=== PATIENT | female | born 1950 | race American Indian/Alaskan Native ===

== ENCOUNTER 2018-02-16 05:36 | Inpatient (IN) | payer MEDICARE ==
--- NOTE | 2018-02-16 05:51 | Cat Scan Report ---
FINAL REPORT EXAM: CT HEAD/BRAIN WO CON HISTORY: neuro deficits < 6hrs or sx present upon awakening TECHNIQUE: CT imaging is acquired through the brain without contrast. Transaxial reformations are provided. PRIORS: None. FINDINGS: Ventricles and CSF spaces are within normal limits. Scattered deep and subcortical white matter hypodense foci are confluent in some areas and are compatible with microvascular angiopathy. No acute intracranial hemorrhage or mass effect. No skull fracture. No significant abnormality within the imaged paranasal sinuses or mastoid air cells. IMPRESSION: No acute intracranial abnormality. Consider follow-up MRI when clinically feasible. There are chronic sequela of microvascular angiopathy. Findings were related to Nurse Willa Amezcua at 0445 central Time on 02/16/2018 by Edilson academic support coordinator immediately following the examination.
[2018-02-16 06:01] LABS: Basophils # (Auto) 0.1 K/mm3 (0.0-0.1); Basophils % (Auto) 1.3 % (0.0-1.8); Eosinophils # (Auto) 0.4 K/mm3 (0.0-0.4); Hematocrit 33.8 % (30.3-42.9); Hemoglobin 11.2 gm/dl (10.1-14.3); Lymphocytes # (Auto) 3.4 K/mm3 (1.2-5.4); Lymphocytes % (Auto) 31.7 % (13.4-35.0); Mean Corpuscular HGB Conc 33 % (30-34); Mean Corpuscular Hemoglobin 32 pg (28-32); Mean Corpuscular Volume 95 fl (79-97); Monocytes # (Auto) 0.6 K/mm3 (0.0-0.8); Platelet Count 259 K/mm3 (140-440); Red Blood Count 3.56 M/mm3 (3.65-5.03); Red Cell Distribution Width 15.8 % (13.2-15.2)
--- NOTE | 2018-02-16 06:11 | Emergency Department Report ---
HPI - General Chief Complaint: Neuro Symptoms/Deficit Time Seen by Provider: 02/16/18 05:58 - HPI HPI: 67 yo AA F presents to the ED via EMS from home with the complaint of some difficulty with speech and some weakness. The patient says she felt dizzy last night but just laid back down when it did not improve. This morning the patient got up to go to dialysis and the patient's saw that she was having trouble speaking. The patient says it feels like her legs "dont want to move." She has a pmhx of ESRD on dialysis on //, HTN, and DM. Her flight instructor is Dr Bryant and her PCP is a Dr Medina. She did not take anything for her symptoms prior to presentation and did not receive anything. She is a tobacco smoker but denies illicit drug use. ED Past Medical Hx - Past Medical History Hx Hypertension: Yes Hx Diabetes: Yes Hx Renal Disease: Yes Hx Dementia: Yes - Surgical History Additional Surgical History: DIAYSIS FISTULA LEFT UPPER ARM - Social History Smoking Status: Current Every Day Smoker Substance Use Type: None - Medications Home Medications: Home Medications Medication Instructions Recorded Confirmed Last Taken Type B Complex 11/Folic/C/Biot/Zinc 1 each PO DAILY 02/22/16 02/22/16 02/22/16 History [Dialyvite with Zinc Tablet] Lisinopril [Zestril] 20 mg PO QDAY 02/22/16 02/22/16 02/22/16 History Metoprolol [Lopressor TAB] 50 mg PO DAILY 02/22/16 02/22/16 02/22/16 History amLODIPine [Norvasc] 10 mg PO DAILY 02/22/16 02/22/16 02/22/16 History cloNIDine [Catapres] 0.2 mg PO BID 02/22/16 02/22/16 02/22/16 History ED Review of Systems ROS: Stated complaint: POSS STROKE Other details as noted in HPI Comment: All other systems reviewed and negative Constitutional: denies: chills, fever Eyes: denies: eye pain, eye discharge, vision change ENT: denies: ear pain, throat pain Respiratory: denies: cough, shortness of breath, wheezing Cardiovascular: denies: chest pain, palpitations Gastrointestinal: denies: abdominal pain, nausea, diarrhea Genitourinary: denies: urgency, dysuria, discharge Musculoskeletal: denies: back pain, joint swelling, arthralgia Skin: denies: rash, lesions Neurological: weakness, other (difficulty with speech). denies: headache Physical Exam - Physical Exam Vital Signs: Vital Signs 02/16/18 05:59 Temperature 98.1 F Pulse Rate 68 Respiratory 18 Rate Blood Pressure 187/78 [Left] O2 Sat by Pulse 98 Oximetry Physical Exam: GENERAL: The patient is well-developed well-nourished. HENT: Normocephalic. Atraumatic. Patient has moist mucous membranes. EYES: Extraocular motions are intact. Pupils equal reactive to light bilaterally. NECK: Supple. Trachea is midline. CHEST/LUNGS: Clear to auscultation. There is no respiratory distress noted. HEART/CARDIOVASCULAR: Regular. There is no tachycardia. There is no murmur. ABDOMEN: Abdomen is soft, nontender. Patient has normal bowel sounds. There is no abdominal distention. SKIN: Skin is warm and dry. NEURO: The patient is awake, alert, and oriented. The patient is cooperative. The patient has some subjective left-sided facial decreased sensation. No facial asymmetry. No pronator drift or dysmetria. There is some left lower extremity weakness where the leg will drift but does not hit the bed. Patient has some mild aphasia but it seems to improve the more she converses. MUSCULOSKELETAL: There is no tenderness or deformity. There is no evidence of acute injury. ED Course Vital Signs 02/16/18 05:59 Temperature 98.1 F Pulse Rate 68 Respiratory 18 Rate Blood Pressure 187/78 [Left] O2 Sat by Pulse 98 Oximetry - Reevaluation(s) Reevaluation #1: 02/16/18 06:11 NIH Stroke Scale/Score (NIHSS) from [email or web address] on 02/16/2018 All calculations should be rechecked by clinician prior to use RESULT SUMMARY: 3 points NIH Stroke Scale INPUTS: 1A: Level of consciousness > 0 = Alert; keenly responsive 1B: Ask month and age > 0 = Both questions right 1C: 'Blink eyes' & 'squeeze hands' > 0 = Performs both tasks 2: Horizontal extraocular movements > 0 = Normal 3: Visual blancas > 0 = No visual loss 4: Facial palsy > 0 = Normal symmetry 5A: Left arm motor drift > 0 = No drift for 10 seconds 5B: Right arm motor drift > 0 = No drift for 10 seconds 6A: Left leg motor drift > 1 = Drift, but doesn't hit bed 6B: Right leg motor drift > 0 = No drift for 5 seconds 7: Limb Ataxia > 0 = No ataxia 8: Sensation > 1 = Mild-moderate loss: less sharp/more dull 9: Language/aphasia > 1 = Mild-moderate aphasia: some obvious changes, without significant limitation 10: Dysarthria > 0 = Normal 11: Extinction/inattention > 0 = No abnormality - Consultations Consultation #1: 02/16/18 06:[address] [facility], who agrees that the patient does not appear to be a candidate for TPA as there is no specific LKWT and she is low on the NIHSS but she should be admitted for TIA vs CVA and further evaluation and workup. Consultation #2: 02/16/18 07:50 I spoke with the patient's flight instructor, Dr Bryant, to make him aware of the patients presentation and admission and a consult has been placed for him. ED Medical Decision Making - Lab Data Result diagrams: 02/16/18 05:53 02/16/18 05:53 - EKG Data -: EKG Interpreted by Me EKG shows normal: sinus rhythm, axis, intervals, QRS complexes, ST-T waves ( nonspecific lateral t waves) Rate: normal - EKG Data When compared to previous EKG there are: previous EKG unavailable Interpretation: normal EKG - Radiology Data Radiology results: report reviewed CT of the head does not show any acute intracranial process including no ischemia, shift, mass, bleeding or skull fracture. - Medical Decision Making Patient presents as a code stroke with some left-sided facial numbness, left lower extremity weakness and some aphasia giving her an NIH stroke scale of about 3. Patient was seen by the telemedicine neurologist who agrees that the patient does not have a last known well time and potentially appears to have some improvement in her symptoms and therefore does not appear to be a TPA candidate at this time. He did not feel that the patient required CT angiography done as the patient does not appear to be a large vessel occlusion, but he does recommend admission for further evaluation including MRI. The rest of the patient's labs were grossly unremarkable except for the end-stage renal disease. Nephrology has been notified and consult. The patient has been accepted for admission by the hospitalist service and I spoke with Dr Caldera. - Differential Diagnosis CVA, TIA, Hypoglycemia, Dysrythmia Critical Care Time: No Critical care attestation.: If time is entered above; I have spent that time in minutes in the direct care of this critically ill patient, excluding procedure time. ED Disposition Clinical Impression: ESRD (end stage renal disease) CVA (cerebral vascular accident) Qualifiers: CVA mechanism: unspecified Qualified Code(s): I63.9 - Cerebral infarction, unspecified Hypertension Qualifiers: Hypertension type: essential hypertension Qualified Code(s): I10 - Essential ( primary) hypertension Disposition: 09 OP ADMIT IP TO THIS HOSP Is pt being admited?: Yes Condition: Fair Instructions: Hypertension (ED) Referrals: HOME STAFFORD MD [Primary Care Provider] - 3-5 Days Time of Disposition: 07:51
[2018-02-16 06:12] LABS: INR 0.87 (0.87-1.13); Partial Thromboplastin Time 32.3 Sec. (24.2-36.6)
[2018-02-16 06:14] LABS: Calcium 8.9 mg/dL (8.4-10.2)
[2018-02-16] MEDS ORDERED: BABY ASPIRIN PO ONE (06:27)
[2018-02-16] MEDS ORDERED: APRESOLINE IV ONE (07:36)
--- NOTE | 2018-02-16 08:40 | History and Physical Report ---
History of Present Illness Date of examination: 02/16/18 Date of admission: 02/16/18 Chief complaint: Dizziness General weakness left sided weakness History of present illness: Patient is 67 yo with ESRD on dialysis, diabetes, dementia. She presents with dizziness, left sided weakness, difficulty speech. CT head was unremarkable. She was given Aspirin, Teleneurologist consulted, and was admitted to rule out acute ischemic stroke. Past History Past Medical History: diabetes, ESRD, hypertension Past Surgical History: Other (fistula) Social history: lives with family, smoking (smokes half pack cigarettes a day), full code. denies: alcohol abuse Family history: cancer Medications and Allergies Allergies Allergy/AdvReac Type Severity Reaction Status Date / Time No Known Allergies Allergy Verified 02/22/16 23:57 Home Medications Medication Instructions Recorded Confirmed Last Taken Type Lisinopril [Zestril] 20 mg PO QDAY 02/22/16 02/16/18 02/22/16 History Gabapentin 300 mg PO QDAY 02/16/18 02/16/18 02/15/18 09:00 History Insulin Glargine,Hum.rec.anlog 10 units SQ QHS 02/16/18 02/16/18 02/15/18 History [Lantus] Review of Systems All systems: negative (No fever, no headache,No vomiting. All other systems reviewed and are negative.) Exam - Physical Exam Narrative exam: Gen appearance: Not in acute distress, lying in bed, HEENT:Normocephalic, atraumatic Neck:supple, no JVD Lungs: Clear to auscultation bilaterally, no crackles , no wheeze Heart: S1 and S2 regular, no murmurs, rubs or gallop Abdomen: soft, non tender, non distended, normal bowel sounds Ext: No edema, no clubbing, no cyanosis Neuro: Awake,alert,oriented x 3, normal speech Psych: Normal mood - Constitutional Vitals: Temp Pulse Resp BP Pulse Ox 98.1 F 67 12 170/77 98 02/16/18 05:59 02/16/18 08:08 02/16/18 07:46 02/16/18 08:08 02/16/18 07:46 Results - Labs CBC & Chem 7: 02/16/18 05:53 02/16/18 05:53 Labs: Abnormal lab results 02/16/18 02/16/18 02/16/18 Range/Units 05:53 05:53 05:53 RBC 3.56 L (3.65-5.03) M/mm3 RDW 15.8 H (13.2-15.2) % Thrombin Time 13.8 L (15.1-19.6) Sec. BUN 43 H (7-17) mg/dL Creatinine 6.8 H (0.7-1.2) mg/dL Glucose 228 H (65-100) mg/dL POC Glucose (70-105) 02/16/18 Range/Units 06:12 RBC (3.65-5.03) M/mm3 RDW (13.2-15.2) % Thrombin Time (15.1-19.6) Sec. BUN (7-17) mg/dL Creatinine (0.7-1.2) mg/dL Glucose (65-100) mg/dL POC Glucose 239 H (70-105) Assessment and Plan Dizziness, weakness. To rule out acute ischemic stroke. Aspirin given. Admit to Telemetry. Stroke workup including MRI brain, MRA, carotid doppler, echo, lipid profile. May consult Neurology if stroke diagnosed. ESRD on dialysis. nephrology consulted. For dialysis today Diabetes mellitus type 2 DVT prophylaxis Dementia
[2018-02-16] MEDS ORDERED: MILK OF MAGNESIA PO PRN (08:51)
[2018-02-16] MEDS ORDERED: TYLENOL PO PRN (08:51)
[2018-02-16] MEDS ORDERED: SODIUM CHLORIDE FLUSH SYRINGE 10 ML IV PRN (08:51)
[2018-02-16] MEDS ORDERED: DULCOLAX PR PRN (08:51)
[2018-02-16] MEDS ORDERED: ZOFRAN IV PRN (08:51)
[2018-02-16] MEDS ORDERED: HEPARIN 10,000 UNITS/10 ML IV PRN (09:10)
[2018-02-16] MEDS ORDERED: NACL 0.9% 100 ML IV PRN (09:10)
--- NOTE | 2018-02-16 11:21 | Consultation ---
History of Present Illness - Reason for Consult Consult date: 02/16/18 end stage renal disease Requesting physician: HOME [facility] - History of Present Illness 67-year-old lady who is well-known to me with a history of hypertension, contacted her by chronic kidney disease on hemodialysis. Patient says he has been feeling lightheaded especially on waking up in the morning. This has been going on for several days now. She was dizzy the previous night and went to lie down and it did not improve. On waking up this morning to go to dialysis patient felt the room spinning around. After waiting for some time she was able to get up but she felt very weak and her Son Noticed Her Speech to Be Slurred and so He Decided That It Was Better for Them to Come to the Hospital for Further Management. She Feels Her Legs "Don't Want to Go Any More". He denies any focal numbness or tingling but she does have numbness and tingling in both hands, feet and legs which has been going on for several months. CT scan of the head did not show any bleed. An MRI has been ordered. Neurology was also consulted. Patient was meant to get dialysis this morning. I'm consulted to assist providing dialysis. Past History Past Medical History: diabetes, ESRD, hypertension Past Surgical History: Other (fistula) Social history: lives with family (grandchildren.), smoking (smokes half pack cigarettes a day), full code. denies: alcohol abuse Family history: cancer (her daughter recently of cancer) Medications and Allergies Allergies Allergy/AdvReac Type Severity Reaction Status Date / Time No Known Allergies Allergy Verified 02/22/16 23:57 Home Medications Medication Instructions Recorded Confirmed Last Taken Type Lisinopril [Zestril] 20 mg PO QDAY 02/22/16 02/16/18 02/22/16 History Gabapentin 300 mg PO QDAY 02/16/18 02/16/18 02/15/18 09:00 History Insulin Glargine,Hum.rec.anlog 10 units SQ QHS 02/16/18 02/16/18 02/15/18 History [Lantus] Active Meds: Active Medications Acetaminophen (Tylenol) 650 mg PO Q4H PRN PRN Reason: Pain, Mild (1-3) Aspirin (Aspirin) 325 mg PO QDAY [facility] Bisacodyl (Dulcolax) 10 mg [place] QDAY PRN PRN Reason: Constipation Heparin Sodium (Porcine) (Heparin) 5,000 unit SUB-Q Q12HR [facility] Heparin Sodium (Porcine) (Heparin 10,000 Units/10 Ml) 1,000 unit IV LUZMARIA PRN PRN Reason: hemodialysis Sodium Chloride (Nacl 0.9%) 100 mls @ 999 mls/hr IV LUZMARIA PRN PRN Reason: Hypotension Magnesium Hydroxide (Milk Of Magnesia) 30 ml PO Q4H PRN PRN Reason: Constipation Ondansetron HCl (Zofran) 4 mg IV Q6H PRN PRN Reason: nausea or vomiting Sodium Chloride (Sodium Chloride Flush Syringe 10 Ml) 10 ml IV PRN PRN PRN Reason: LINE FLUSH Review of Systems All systems: negative (Constitutional: no fever or chills. No anorexia or weight loss. HEENT: No sore throat or sinus drainage no hearing or vision impairment . Cardiovascular: No chest pain, shortness of breath, palpitations, lower extremity swelling or dizziness. Respiratory: No cough, sputum, shortness of breath, hemoptysis or wheezing. Gastrointestinal: She had recurrent nausea and vomiting, diarrhea, abdominal pain, hematemesis or melena. Genitourinary: No frequency urgency dysuria or hematuria. hematologic: No abnormal bleeding or bruising. Integumentary: She admits to itching but no rash. Neurological: No headache C history of present illness. She admits to dizziness. No syncope or seizures. Musculoskeletal: No joint pains no stiffness. Psychiatry: no anxiety but admits to depression) Exam - Vital Signs Vital signs: Vital Signs Pulse Ox 98 02/16/18 05:44 - Physical Exam Narrative exam: Elderly -[place] female lying in bed in no acute distress HEENT: NCAT, pink oral mucous membrane Neck: Supple, no venous distention CVS: S1S2 RRR with no murmur, rub or gallop Chest: Clear to auscultation Abdomen: Protuberant, soft, nontender, no organomegaly, bowel sounds are present Extremities: No edema Neuro: Awake, alert no focal deficits Results - Lab Results 02/16/18 05:53 02/16/18 05:53 Most recent lab results Calcium 8.9 mg/dL (8.4-10.2) 02/16/18 05:53 Assessment and Plan - Patient Problems (1) Transient ischemic attack (TIA) Current Visit: Yes Status: Acute Plan to address problem: Patient has been started on aspirin. MRI has been ordered. Follow up lipid profile. Discussed smoking cessation. Patient is willing to quit this time. We'll needs medication to help with craving since she is depressed already would benefit from nicotine patches (2) Vertigo Current Visit: Yes Status: Acute Plan to address problem: Follow up MRI. Meclizine when necessary if MRI is negative (3) ESRD (end stage renal disease) Current Visit: Yes Status: Acute Plan to address problem: Hemodialysis this morning and then on a Friday, Friday and Friday schedule (4) Hypertensive chronic kidney disease with stage 5 chronic kidney disease or end stage renal disease Current Visit: No Status: Acute Plan to address problem: Follow blood pressure on current medications. Patient states Blood pressure has been controlled recently at dialysis. (5) Type 2 diabetes mellitus with chronic kidney disease Current Visit: No Status: Acute Plan to address problem: Blood sugar control by primary attending (6) Depression Current Visit: Yes Status: Acute Plan to address problem: Patient has been depressed for more than 3 months now and is still not improving despite counseling. We'll start her on citalopram
--- NOTE | 2018-02-16 14:58 | Magnetic Resonance Report ---
MRI OF THE BRAIN WITHOUT CONTRAST: HISTORY: Stroke PROCEDURE: Multiplanar, multisequence MR imaging of the brain without IV contrast was performed. FINDINGS: Compared to the CT head dated 02/16/18. MRI demonstrates a 5 mm focus of diffusion restriction in the lateral right thalamus on image 17. There is decreased signal in this area on the ADC map. No other areas of diffusion restriction. No evidence for hemorrhage, mass or extra axial fluid collection. There is moderate volume loss. There are moderate nonspecific T2 signal abnormalities in the white matter and jemma consistent with chronic microvascular disease. Chronic lacunar infarcts are identified in the left jemma and bilateral thalami measuring less than 1 cm. The midline structures are central. The basal cisterns are patent. Normal ventricular size. The orbital cavities and sella turcica demonstrate no abnormality. The visualized paranasal sinuses and mastoid air cells are well aerated. IMPRESSION: 5 mm focus of subacute ischemia in the lateral right thalamus. Volume loss and nonspecific chronic white matter changes. Tiny chronic lacunar infarcts in the bilateral thalami and left jemma.
--- NOTE | 2018-02-16 14:59 | Magnetic Resonance Report ---
MRA HEAD WITHOUT CONTRAST HISTORY: Stroke. [id number] imaging with MIP reformations of the [facility] [place] is submitted. The arteries appear widely patent and free of hemodynamically significant stenosis, aneurysm or dissection. Small to medium left posterior communicating artery is noted. IMPRESSION: Unremarkable MRA head.
[2018-02-17 07:14] LABS: Chol/HDL Ratio 3.72 %
[2018-02-17] MEDS ORDERED: D50W (25GM) Syringe IV PRN (07:27)
--- NOTE | 2018-02-17 08:33 | History and Physical Report ---
History of Present Illness Date of examination: 02/17/18 Date of admission: 02/16/18 08:51 Chief complaint: FOCUSED NEUROLOGY CONSULT NOTE CC: I am asked to see this 67 AA F for an episode of slurred speech, and some abnormality of her left leg, admitted 02/16 with most sx resolved. HPI: Pt has an antecedent hx of ESRD on HD MWF, HTN, DM2 and yesterday had an episode of slurred speech which her son noted (the patient was not aware of this), and abnormal gait which the patient was aware of. She needed her son's help to walk. She noted no problem with the left arm. She feels slightly dizzy off and on but this is a chronic thing, not a new sx. No vertigo. No headache. No diplopia or trouble with language. No cochlear sx, ear fullness, loss of hearing or ear pain. A head CT (images reviewed) shows only SVID, and an MRI head shows a small 5 mm diam focus of ischemia in the right lateral thalamus on DWI images (images reviewed). MRA head normal. 2D Echo nl with EF 55-60% no sig valvular lesions or clots. We await carotid studies to complete cardenas. No prior hx of sx of this type. ROS: an 11 point ROS is negative. SH/FH nor re-reviewed MEDS/ALLERGIES: see chart PE: HEENT nl NECK supple no bruits COR no m rubs LUNGS clear to A EXTREM no edema or evidence of trauma NEURO: MS alert, coop, speech fluent clear and without errors, follows all commands well and quickly, recent and remote memory in tact CN II - 12 nl. No nystagmus, full eom, blancas full to finger confrontation MOT nl stregth all four extrem prox and dist 5/5 SENS - altered to light touch over left leg and face, normal over left arm and entire R side CEREB- sl clumbsy with left hand arm on fnf exam DTRs uniformly absent, great toes downgoing to plantar stim. GAIT not tested due to fall risk DX IMP: 1. Tiny acute right thalamic infarct (posterior circulation) with mild left face and leg sensory impairment producing abn gait with left leg (sensory ataxia ). There is no motor weakness 2. Mult other med dxs as above. RECC: 1. We await results of carotid studies which will complete neuro cardenas 2. Have PT see patient to eval gait. Pt may need walker at this time but will overwhelmingly recover full function in several weeks. 3. Call as needed. Continue ASA rx A Mahin Williamson MD Past History Past Medical History: diabetes, ESRD, hypertension Past Surgical History: Other (fistula) Social history: lives with family, smoking (smokes half pack cigarettes a day), full code. denies: alcohol abuse Family history: cancer Medications and Allergies Allergies Allergy/AdvReac Type Severity Reaction Status Date / Time No Known Allergies Allergy Verified 02/22/16 23:57 Home Medications Medication Instructions Recorded Confirmed Last Taken Type Lisinopril [Zestril] 20 mg PO QDAY 02/22/16 02/16/18 02/22/16 History Gabapentin 300 mg PO QDAY 02/16/18 02/16/18 02/15/18 09:00 History Insulin Glargine,Hum.rec.anlog 10 units SQ QHS 02/16/18 02/16/18 02/15/18 History [Lantus] Active Meds: Active Medications Acetaminophen (Tylenol) 650 mg PO Q4H PRN PRN Reason: Pain, Mild (1-3) Aspirin (Aspirin) 325 mg PO QDAY [facility] Bisacodyl (Dulcolax) 10 mg [place] QDAY PRN PRN Reason: Constipation Dextrose (D50w (25gm) Syringe) 50 ml IV PRN PRN PRN Reason: Hypoglycemia Gabapentin (Neurontin) 300 mg PO QDAY [facility] Heparin Sodium (Porcine) (Heparin) 5,000 unit SUB-Q Q12HR [facility] Heparin Sodium (Porcine) (Heparin 10,000 Units/10 Ml) 1,000 unit IV LUZMARIA PRN PRN Reason: hemodialysis Sodium Chloride (Nacl 0.9%) 100 mls @ 999 mls/hr IV LUZMARIA PRN PRN Reason: Hypotension Insulin Glargine (Lantus) 10 units SUB-Q QHS [facility] Insulin Human Lispro (Humalog) 0 unit SUB-Q ACHS [facility]; Protocol Magnesium Hydroxide (Milk Of Magnesia) 30 ml PO Q4H PRN PRN Reason: Constipation Ondansetron HCl (Zofran) 4 mg IV Q6H PRN PRN Reason: nausea or vomiting Sertraline HCl (Zoloft) 25 mg PO QDAY [facility] Sodium Chloride (Sodium Chloride Flush Syringe 10 Ml) 10 ml IV PRN PRN PRN Reason: LINE FLUSH Physical Examination - Vital Signs Vital Signs: Vital Signs Pulse Ox 98 02/16/18 05:44 Results - Laboratory Findings CBC and BMP: 02/16/18 05:53 02/16/18 05:53 Abnormal Lab Findings: Abnormal Labs 02/16/18 02/16/18 02/16/18 05:53 05:53 05:53 RBC 3.56 L RDW 15.8 H Thrombin Time 13.8 L BUN 43 H Creatinine 6.8 H Glucose 228 H POC Glucose Triglycerides Cholesterol LDL Cholesterol Direct 02/16/18 02/16/18 02/16/18 06:12 15:50 22:13 RBC RDW Thrombin Time BUN Creatinine Glucose POC Glucose 239 H 203 H 275 H Triglycerides Cholesterol LDL Cholesterol Direct 02/17/18 02/17/18 04:50 06:29 RBC RDW Thrombin Time BUN Creatinine Glucose POC Glucose 291 H Triglycerides 191 H Cholesterol 220 H LDL Cholesterol Direct 134 H
[2018-02-17] MEDS: HEPARIN SUB-Q SCH ×2 (09:39→21:47)
[2018-02-17 11:00] LABS: Alanine Aminotransferase 18 units/L (7-56); Albumin 3.4 g/dL (3.9-5)
[2018-02-17 11:07] LABS: Bilirubin,Direct < 0.2 mg/dL (0-0.2)
[2018-02-17] MEDS ORDERED: NACL 0.9 (PRIMING MACHINE ONLY DIALYSIS) MC ONE (12:00)
--- NOTE | 2018-02-17 12:13 | Progress Note ---
Hospitalist Physical - Constitutional Vitals: Temp Pulse Resp BP Pulse Ox 98.1 F 75 18 156/69 97 02/17/18 04:49 02/17/18 04:49 02/17/18 04:49 02/17/18 04:49 02/17/18 04:49 Results - Labs CBC & Chem 7: 02/16/18 05:53 02/16/18 05:53 Labs: Laboratory Last Values WBC 10.7 K/mm3 (4.5-11.0) 02/16/18 05:53 RBC 3.56 M/mm3 (3.65-5.03) L 02/16/18 05:53 Hgb 11.2 gm/dl (10.1-14.3) 02/16/18 05:53 Hct 33.8 % (30.3-42.9) 02/16/18 05:53 MCV 95 fl (79-97) 02/16/18 05:53 MCH 32 pg (28-32) 02/16/18 05:53 MCHC 33 % (30-34) 02/16/18 05:53 RDW 15.8 % (13.2-15.2) H 02/16/18 05:53 Plt Count 259 K/mm3 (140-440) 02/16/18 05:53 Lymph % (Auto) 31.7 % (13.4-35.0) 02/16/18 05:53 [place] % (Auto) 6.0 % (0.0-7.3) 02/16/18 05:53 Eos % (Auto) 4.0 % (0.0-4.3) 02/16/18 05:53 Baso % (Auto) 1.3 % (0.0-1.8) 02/16/18 05:53 Lymph # 3.4 K/mm3 (1.2-5.4) 02/16/18 05:53 [place] # 0.6 K/mm3 (0.0-0.8) 02/16/18 05:53 Eos # 0.4 K/mm3 (0.0-0.4) 02/16/18 05:53 Baso # 0.1 K/mm3 (0.0-0.1) 02/16/18 05:53 Seg Neutrophils % 57.0 % (40.0-70.0) 02/16/18 05:53 Seg Neutrophils # 6.1 K/mm3 (1.8-7.7) 02/16/18 05:53 PT 12.2 Sec. (12.2-14.9) 02/16/18 05:53 INR 0.87 (0.87-1.13) 02/16/18 05:53 APTT 32.3 Sec. (24.2-36.6) 02/16/18 05:53 Thrombin Time 13.8 Sec. (15.1-19.6) L 02/16/18 05:53 Sodium 141 mmol/L (137-145) 02/16/18 05:53 Potassium 4.6 mmol/L (3.6-5.0) 02/16/18 05:53 Chloride 98.1 mmol/L (98-107) 02/16/18 05:53 Carbon Dioxide 27 mmol/L (22-30) 02/16/18 05:53 Anion Gap 21 mmol/L 02/16/18 05:53 BUN 43 mg/dL (7-17) H 02/16/18 05:53 Creatinine 6.8 mg/dL (0.7-1.2) H 02/16/18 05:53 Estimated GFR 7 ml/min 02/16/18 05:53 BUN/Creatinine Ratio 6 % 02/16/18 05:53 Glucose 228 mg/dL (65-100) H 02/16/18 05:53 POC Glucose 291 (70-105) H 02/17/18 06:29 Calcium 8.9 mg/dL (8.4-10.2) 02/16/18 05:53 Total Bilirubin 0.30 mg/dL (0.1-1.2) 02/17/18 04:50 Direct Bilirubin < 0.2 mg/dL (0-0.2) 02/17/18 04:50 Indirect Bilirubin 0.1 mg/dL 02/17/18 04:50 AST 22 units/L (5-40) 02/17/18 04:50 ALT 18 units/L (7-56) 02/17/18 04:50 Alkaline Phosphatase 115 units/L (35-129) 02/17/18 04:50 Troponin T 0.022 ng/mL (0.00-0.029) 02/16/18 05:53 Total Protein 6.6 g/dL (6.3-8.2) 02/17/18 04:50 Albumin 3.4 g/dL (3.9-5) L 02/17/18 04:50 Albumin/Globulin Ratio 1.1 % 02/17/18 04:50 Triglycerides 191 mg/dL (2-149) H 02/17/18 04:50 Cholesterol 220 mg/dL (50-199) H 02/17/18 04:50 LDL Cholesterol Direct 134 mg/dL (50-130) H 02/17/18 04:50 HDL Cholesterol 59 mg/dL (40-59) 02/17/18 04:50 Cholesterol/HDL Ratio 3.72 % 02/17/18 04:50
[2018-02-17] MEDS ORDERED: NACL 0.9% 100 ML IV PRN (12:16)
[2018-02-17] MEDS: HumaLOG SUB-Q SCH ×3 (12:41→23:32)
[2018-02-17 14:15] LABS: Hepatitis A Antibody IgM Non-Reactive (NonReactive); Hepatitis B Core IgM Non-Reactive (NonReactive); Hepatitis B Surface Antigen Non-Reactive (Negative); Hepatitis C Virus Antibody Non-Reactive (NonReactive)
[2018-02-17] MEDS: ASPIRIN PO SCH (16:39)
[2018-02-17] MEDS: NEURONTIN PO SCH (16:40)
[2018-02-17] MEDS: ZOLOFT PO SCH (16:40)
--- NOTE | 2018-02-17 17:54 | Progress Note ---
Assessment and Plan - Patient Problems (1) Transient ischemic attack (TIA) Current Visit: Yes Status: Acute Plan to address problem: Patient has been started on aspirin. MRI shows subacute cerebral infarction in the right thalamus. Discussed this with the patient. Neurology on the case (2) Vertigo Current Visit: Yes Status: Acute Plan to address problem: Continue meclizine as needed (3) ESRD (end stage renal disease) Current Visit: Yes Status: Acute Plan to address problem: Hemodialysis this morning and then on a Friday, Friday and Friday schedule (4) Hypertensive chronic kidney disease with stage 5 chronic kidney disease or end stage renal disease Current Visit: No Status: Acute Plan to address problem: Follow blood pressure on current medications. Patient states Blood pressure has been controlled recently at dialysis. (5) Type 2 diabetes mellitus with chronic kidney disease Current Visit: No Status: Acute Plan to address problem: Blood sugar control by primary attending (6) Depression Current Visit: Yes Status: Acute Plan to address problem: Patient has been depressed for more than 3 months now and is still not improving despite counseling. Continue citalopram Subjective Date of service: 02/17/18 Principal diagnosis: end stage renal disease with acute CVA Interval history: Patient seen lying in bed. She has no new complaints today. No chest pain or shortness of breath. No focal weakness or numbness. Objective - Exam Narrative Exam: Elderly -Mexican female lying in bed in no acute distress HEENT: NCAT, pink oral mucous membrane Neck: Supple, no venous distention CVS: S1S2 RRR with no murmur, rub or gallop Chest: Clear to auscultation Abdomen: Protuberant, soft, nontender, no organomegaly, bowel sounds are present Extremities: No edema Neuro: Awake, alert no focal deficits - Vital Signs Vital signs: Vital Signs - 12hr 02/17/18 02/17/18 02/17/18 11:00 11:15 11:30 Temperature 99.0 F Pulse Rate 74 74 74 Respiratory 16 Rate Blood Pressure 170/80 181/72 174/85 02/17/18 02/17/18 02/17/18 11:45 12:00 12:15 Temperature Pulse Rate 69 69 67 Respiratory Rate Blood Pressure 160/75 149/63 144/63 02/17/18 02/17/18 02/17/18 12:30 12:45 13:00 Temperature Pulse Rate 69 71 71 Respiratory Rate Blood Pressure 145/63 149/77 138/60 02/17/18 02/17/18 02/17/18 13:15 13:30 13:45 Temperature Pulse Rate 72 72 67 Respiratory Rate Blood Pressure 150/79 138/56 143/80 02/17/18 02/17/18 02/17/18 14:00 14:15 14:30 Temperature Pulse Rate 88 79 79 Respiratory Rate Blood Pressure 133/62 172/92 172/92 - Lab 02/16/18 05:53 02/16/18 05:53 Most recent lab results Calcium 8.9 mg/dL (8.4-10.2) 02/16/18 05:53
[2018-02-17] MEDS ORDERED: APRESOLINE IV PRN (18:23)
[2018-02-17] MEDS ORDERED: LANTUS SUB-Q SCH (22:00)
[2018-02-17] MEDS ORDERED: HumaLOG SUB-Q SCH (22:35)
[2018-02-18] MEDS: HumaLOG SUB-Q SCH (08:59)
--- NOTE | 2018-02-18 09:41 | Discharge Summary ---
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 Therapy Evaluate and Treat [CONS] Routine Comment: Reason For Exam: Neuro deficits Physical Therapy Evaluation and Treat [CONS] Routine Comment: Reason For Exam: Neuro deficits 02/16/18 08:52 Speech Therapy Evaluation and Treat [CONS] Routine Reason For Exam: swallow eval 02/17/18 06:49 Consult to Physician [CONS] Routine Comment: Consulting Provider: NARESH YAN Physician Instructions: Reason For Exam: stroke Primary care physician: HOME STAFFORD Hospitalization Condition: Fair Disposition: DC/[place]-06 HOME UNDER HOME [facility] - Discharge Diagnoses (1) Acute ischemic stroke Status: Acute (2) ESRD (end stage renal disease) on dialysis Status: Acute (3) Dyslipidemia Status: Acute Exam - Constitutional Vitals: Temp Pulse Resp BP Pulse Ox 97.8 F 66 20 151/68 97 02/18/18 05:46 02/18/18 05:46 02/18/18 05:46 02/18/18 05:46 02/18/18 05:46 Plan Activity: advance as tolerated Diet: low fat, low cholesterol, low salt, diabetic, renal, other (Mechanical soft) Special Instructions: physical therapy, occupational therapy, home health RN Additional Instructions: 1.Follow up with PCP in 1 week. 2.Continue routine hemodialysis as scheduled. 3.Home health PT/OT and speech therapy Follow up with: HOME STAFFORD MD [Primary Care Provider] - 3-5 Days Prescriptions: Aspirin [Aspirin TAB] 325 mg PO QDAY #30 tablet AtorvaSTATin [Lipitor] 40 mg PO QHS #30 tablet
[2018-02-18] MEDS: NEURONTIN PO SCH (11:11)
[2018-02-18] MEDS: HEPARIN SUB-Q SCH (11:11)
[2018-02-18] MEDS: ASPIRIN PO SCH (11:11)
[2018-02-18] MEDS: ZOLOFT PO SCH (11:11)
[2018-02-18] MEDS ORDERED: NACL 0.9 (PRIMING MACHINE ONLY DIALYSIS) MC ONE (11:13)
[2018-02-18 14:09] VITALS: BP 106/88
--- NOTE | 2018-02-18 16:36 | Progress Note ---
Assessment and Plan - Patient Problems (1) Transient ischemic attack (TIA) Current Visit: Yes Status: Acute Plan to address problem: Patient has been started on aspirin. MRI shows subacute cerebral infarction in the right thalamus. I agree with discharge plan (2) Vertigo Current Visit: Yes Status: Acute Plan to address problem: Continue meclizine as needed (3) ESRD (end stage renal disease) Current Visit: Yes Status: Acute Plan to address problem: Hemodialysis on a Friday, Friday and Friday schedule. Follow up at outpatient dialysis on Friday (4) Hypertensive chronic kidney disease with stage 5 chronic kidney disease or end stage renal disease Current Visit: No Status: Acute Plan to address problem: Follow blood pressure on current medications. Patient states Blood pressure has been controlled recently at dialysis. (5) Type 2 diabetes mellitus with chronic kidney disease Current Visit: No Status: Acute Plan to address problem: Blood sugar control by primary attending (6) Depression Current Visit: Yes Status: Acute Plan to address problem: Patient has been depressed for more than 3 months now and is still not improving despite counseling. Continue citalopram Subjective Date of service: 02/18/18 Principal diagnosis: end stage renal disease with acute CVA Interval history: Patient seen earlier today sitting on chair. She has no new complaints today. Did not get a prescription for citalopram which she was started on for depression. No chest pain or shortness of breath. No focal weakness or numbness. Objective - Exam Narrative Exam: Elderly -Beninese female lying in bed in no acute distress HEENT: NCAT, pink oral mucous membrane Neck: Supple, no venous distention CVS: S1S2 RRR with no murmur, rub or gallop Chest: Clear to auscultation Abdomen: Protuberant, soft, nontender, no organomegaly, bowel sounds are present Extremities: No edema Neuro: Awake, alert no focal deficits - Vital Signs Vital signs: Vital Signs - 12hr 02/18/18 02/18/18 02/18/18 05:46 07:50 10:00 Temperature 97.8 F 98.4 F Pulse Rate 66 67 74 Respiratory 20 18 Rate Blood Pressure 151/68 152/69 O2 Sat by Pulse 97 100 Oximetry 02/18/18 02/18/18 02/18/18 10:25 10:45 11:00 Temperature 97.8 F Pulse Rate 63 63 64 Respiratory 16 Rate Blood Pressure 178/74 161/63 164/84 O2 Sat by Pulse Oximetry 02/18/18 02/18/18 02/18/18 11:15 11:30 11:45 Temperature Pulse Rate 60 60 60 Respiratory Rate Blood Pressure 162/77 166/67 149/73 O2 Sat by Pulse Oximetry 02/18/18 02/18/18 02/18/18 12:00 12:15 12:30 Temperature Pulse Rate 59 L 61 60 Respiratory Rate Blood Pressure 129/67 157/71 153/77 O2 Sat by Pulse Oximetry 02/18/18 02/18/18 02/18/18 12:45 13:00 13:25 Temperature 98.2 F Pulse Rate 60 62 74 Respiratory 16 Rate Blood Pressure 149/53 136/77 106/88 O2 Sat by Pulse Oximetry - Lab 02/16/18 05:53 02/16/18 05:53 Most recent lab results Calcium 8.9 mg/dL (8.4-10.2) 02/16/18 05:53
== END 2018-02-18 15:35 | disposition home health service (06) | DRG 64 ==
LOC: ED 05:36 → 4A 08:51
PROVIDERS: ADMIT Internal Medicine; ATTEND Internal Medicine
PROC: 5A1D70Z Performance of Urinary Filtration, Intermittent, Less than 6 Hours Per Day (ICD-10-PCS; principal; 2018-02-17)
PROC: 5A1D70Z Performance of Urinary Filtration, Intermittent, Less than 6 Hours Per Day (ICD-10-PCS; 2018-02-18)
DX: I63.9 Cerebral infarction, unspecified (principal); N18.6 End stage renal disease; I12.0 Hypertensive chronic kidney disease with stage 5 chronic kidney disease or end stage renal disease; Z99.2 Dependence on renal dialysis; E78.5 Hyperlipidemia, unspecified; F03.90 Unspecified dementia, unspecified severity, without behavioral disturbance, psychotic disturbance, mood disturbance, and anxiety; F17.210 Nicotine dependence, cigarettes, uncomplicated; Z80.9 Family history of malignant neoplasm, unspecified; Z79.899 Other long term (current) drug therapy; Z79.4 Long term (current) use of insulin; R26.0 Ataxic gait; F32.9 Major depressive disorder, single episode, unspecified; E11.22 Type 2 diabetes mellitus with diabetic chronic kidney disease
CPT/HCPCS: 36415; 70450; 70544; 70551; 80048; 80061; 80074; 82962; 84484; 85025; 85610; 85670; 85730; 93005; 93010; 93306; 93880; 96374; 99406; A9270-GY; G8978-GP; G8979-GP; G8996-GN; G8997-GN; J0360; J1644; J1815; J2405; J7030

== ENCOUNTER 2019-09-27 22:15 | Emergency (ER) | payer MEDICARE ==
--- NOTE | 2019-09-27 23:38 | Emergency Department Report ---
ED Back Pain/Injury HPI - General Chief Complaint: Back Pain/Injury Stated Complaint: BACK PAIN Time Seen by Provider: 09/27/19 23:01 Source: patient, EMS Limitations: No Limitations - History of Present Illness Initial Comments: 68-year-old female presents to ED with complaint of left-sided mid back pain for several hours. Patient states pain is worse with movement of torso, palpation. Patient denies injury, lifting anything heavy, or bending in an awkward way. Patient denies any cough, fever, hematuria, urinary frequency leg pain or swelling. Patient has a history of end-stage renal disease, is on dialysis, and received dialysis earlier this morning. Patient denies any shortness of breath or pleuritic pain. Nephrology: Dr Chandu MARRERO Complaint: back pain -: This afternoon Similar Symptoms Previously: No Radiation: none Severity: moderate Quality: aching Consistency: constant Improves With: none Worsens With: movement, other (palpation) Context: unknown Associated Symptoms: denies: chest pain, cough, difficulty urinating, incontinence, fever/chills, abdominal pain, nausea/vomiting, shortness of breath - Related Data Home Medications Medication Instructions Recorded Confirmed Last Taken Vit B12/Levomefolate/Vit B6/B2 1 each PO DAILY 08/26/18 12/30/18 Unknown [Cerefolin Caplet] Previous Rx's Medication Instructions Recorded Last Taken Type Aspirin [Aspirin BABY CHEW TAB] 81 mg PO QDAY #30 tab.chew 08/28/18 Unknown Rx AtorvaSTATin [Lipitor] 40 mg PO QHS #30 tablet 08/28/18 Unknown Rx Pantoprazole [Protonix] 40 mg PO QDAY #30 tablet 08/28/18 Unknown Rx amLODIPine 10 mg PO QDAY #30 tablet 08/28/18 Unknown Rx methOCARBAMOL [Robaxin TAB] 500 mg PO Q8HR PRN #20 tablet 09/28/19 Unknown Rx Allergies Allergy/AdvReac Type Severity Reaction Status Date / Time No Known Allergies Allergy Verified 02/22/16 23:57 ED Review of Systems ROS: Stated complaint: BACK PAIN Other details as noted in HPI Comment: All other systems reviewed and negative Constitutional: denies: chills, fever Respiratory: denies: cough, shortness of breath Cardiovascular: denies: chest pain Gastrointestinal: denies: abdominal pain, nausea, vomiting Genitourinary: denies: frequency, hematuria Musculoskeletal: back pain, other (denies leg pain or swelling) ED Past Medical Hx - Past Medical History Hx Hypertension: Yes Hx CVA: Yes (TIA) Hx Diabetes: Yes Hx Renal Disease: Yes Hx Dementia: Yes - Surgical History Additional Surgical History: DIAYSIS FISTULA LEFT UPPER ARM - Social History Smoking Status: Current Every Day Smoker Substance Use Type: None - Medications Home Medications: Home Medications Medication Instructions Recorded Confirmed Last Taken Type Vit B12/Levomefolate/Vit B6/B2 1 each PO DAILY 08/26/18 12/30/18 Unknown History [Cerefolin Caplet] Aspirin [Aspirin BABY CHEW TAB] 81 mg PO QDAY #30 tab.chew 08/28/18 12/30/18 Unknown Rx AtorvaSTATin [Lipitor] 40 mg PO QHS #30 tablet 08/28/18 12/30/18 Unknown Rx Pantoprazole [Protonix] 40 mg PO QDAY #30 tablet 08/28/18 12/30/18 Unknown Rx amLODIPine 10 mg PO QDAY #30 tablet 08/28/18 12/30/18 Unknown Rx methOCARBAMOL [Robaxin TAB] 500 mg PO Q8HR PRN #20 tablet 09/28/19 Unknown Rx ED Physical Exam - General Limitations: No Limitations General appearance: alert, in no apparent distress - Head Head exam: Present: atraumatic, normocephalic - Eye Eye exam: Present: normal appearance - ENT ENT exam: Present: mucous membranes moist - Neck Neck exam: Present: normal inspection - Respiratory Respiratory exam: Present: normal lung sounds bilaterally. Absent: respiratory distress - Cardiovascular Cardiovascular Exam: Present: regular rate, normal rhythm - GI/Abdominal GI/Abdominal exam: Present: soft. Absent: distended, tenderness - Extremities Exam Extremities exam: Present: normal inspection. Absent: pedal edema, calf tenderness - Back Exam Back exam: Present: CVA tenderness (L). Absent: CVA tenderness (R), vertebral tenderness - Neurological Exam Neurological exam: Present: alert, oriented X3 - Psychiatric Psychiatric exam: Present: normal affect, normal mood - Skin Skin exam: Present: warm, dry, intact, normal color ED Course Vital Signs 09/27/19 22:28 Temperature 97.9 F Pulse Rate 74 Respiratory 16 Rate Blood Pressure 185/83 [Left] O2 Sat by Pulse 97 Oximetry ED Medical Decision Making - Lab Data Result diagrams: 09/27/19 23:21 09/27/19 23:21 - Radiology Data Radiology results: report reviewed, image reviewed - Medical Decision Making 68-year-old female with left mid back pain. Workup unremarkable, including CT scan. Labs are normal except for known end-stage renal disease. Patient reports resolution of pain with pain medication that has been given. He is feeling much better at this time. Outpatient follow-up advised. Return precautions given. - Differential Diagnosis kidney stone, pyelonephritis, pneumonia, pleural effusion, muscle strain Critical care attestation.: If time is entered above; I have spent that time in minutes in the direct care of this critically ill patient, excluding procedure time. ED Disposition Clinical Impression: Acute thoracic myofascial strain Disposition: TO HOME OR SELFCARE Is pt being admited?: No Condition: Stable Instructions: Muscle Strain (ED), Back Pain (ED) Prescriptions: methOCARBAMOL [Robaxin TAB] 500 mg PO Q8HR PRN #20 tablet PRN Reason: Muscle Spasm Referrals: PRIMARY CARE, [Primary Care Provider] - 3-5 Days Time of Disposition: 02:07
[2019-09-27 23:39] LABS: Basophils # (Auto) 0.1 K/mm3 (0.0-0.1); Basophils % (Auto) 0.7 % (0.0-1.8); Eosinophils # (Auto) 0.1 K/mm3 (0.0-0.4); Eosinophils % (Auto) 1.8 % (0.0-4.3); Hematocrit 34.2 % (30.3-42.9); Hemoglobin 11.4 gm/dl (10.1-14.3); Lymphocytes # (Auto) 2.6 K/mm3 (1.2-5.4); Mean Corpuscular HGB Conc 33 % (30-34); Mean Corpuscular Volume 92 fl (79-97); Monocytes # (Auto) 0.6 K/mm3 (0.0-0.8); Monocytes % (Auto) 9.1 % (0.0-7.3); Platelet Count 237 K/mm3 (140-440); Red Blood Count 3.73 M/mm3 (3.65-5.03); Red Cell Distribution Width 16.3 % (13.2-15.2)
[2019-09-27] MEDS ORDERED: MORPHINE 2 MG/1 ML INJ IV ONE (23:39)
[2019-09-27 23:59] LABS: Alanine Aminotransferase 6 units/L (7-56); Albumin 3.9 g/dL (3.9-5); BUN/Creatinine Ratio 4; Blood Urea Nitrogen 19 mg/dL (7-17); Calcium 8.3 mg/dL (8.4-10.2); Hemolysis Index 12
--- NOTE | 2019-09-28 00:06 | XRay Report ---
CHEST 1 VIEW 09/27/2019 11:22 PM INDICATION / CLINICAL INFORMATION: left back pain. COMPARISON: Image from study dated 08/26/18 is not available at this time. Report was reviewed. FINDINGS: SUPPORT DEVICES: None. HEART / MEDIASTINUM: Heart is upper normal size. LUNGS / PLEURA: No significant pulmonary or pleural abnormality. No pneumothorax. ADDITIONAL FINDINGS: No significant additional findings. IMPRESSION: 1. No acute findings. Signer Name: Andreia Lyons MD Signed: 09/28/2019 12:02 AM Workstation Name: [id number]
[2019-09-28 00:08] LABS: Bilirubin,Direct < 0.2 mg/dL (0-0.2)
[2019-09-28 00:48] LABS: Bacteria,Urine 1+ /HPF (Negative); Bilirubin,Urine NEG (Negative); Blood,Urine NEG (Negative); Color,Urine Yellow (Yellow); Mucus,Urine FEW /HPF; Urobilinogen,Urine < 2.0 mg/dL (<2.0)
--- NOTE | 2019-09-28 01:36 | Cat Scan Report ---
CT ABDOMEN AND PELVIS WITHOUT CONTRAST INDICATION / CLINICAL INFORMATION: left flank pain. TECHNIQUE: Axial CT images were obtained through the abdomen and pelvis without IV contrast. All CT scans at [facility] location are performed using CT dose reduction for ALARA by means of automated exposure control. COMPARISON: CT dated 08/27/18 FINDINGS: LOWER CHEST: No significant abnormality. LIVER: No significant abnormality. GALLBLADDER: Tiny gallstone without gallbladder wall thickening or inflammation. BILE DUCTS: No significant abnormality. PANCREAS: No significant abnormality. SPLEEN: No significant abnormality. ADRENALS: No significant abnormality. RIGHT KIDNEY and URETER: No significant abnormality. LEFT KIDNEY and URETER: No significant abnormality. STOMACH and SMALL BOWEL: No significant abnormality. COLON: No significant abnormality. APPENDIX: Not visualized. PERITONEUM: No free fluid. No free air. No fluid collection. LYMPH NODES: No significant adenopathy. AORTA and ARTERIES: Moderate atherosclerotic calcification without acute abnormality. IVC and VEINS: No significant abnormality. URINARY BLADDER: No significant abnormality. REPRODUCTIVE ORGANS: Uterus is absent. No significant adnexal abnormality. ADDITIONAL FINDINGS: Subcutaneous cystic lesion in the proximal anterior left thigh is unchanged. SKELETAL SYSTEM: No significant abnormality. IMPRESSION: 1. No inflammatory process or bowel obstruction. 2. No urinary tract stones or hydronephrosis. Signer Name: Andreai Lyons MD Signed: 09/28/2019 1:32 AM Workstation Name: [email or web address] [employer]
[2019-09-28 08:22] VITALS: BP 168/77
== END 2019-09-28 07:30 | disposition home or self-care (01) ==
LOC: ED 22:15
DX: S29.012A Strain of muscle and tendon of back wall of thorax, initial encounter (principal); I12.9 Hypertensive chronic kidney disease with stage 1 through stage 4 chronic kidney disease, or unspecified chronic kidney disease; N18.9 Chronic kidney disease, unspecified; E11.22 Type 2 diabetes mellitus with diabetic chronic kidney disease; F17.200 Nicotine dependence, unspecified, uncomplicated; R10.9 Unspecified abdominal pain; Z86.73 Personal history of transient ischemic attack (TIA), and cerebral infarction without residual deficits; Z79.82 Long term (current) use of aspirin; Z79.899 Other long term (current) drug therapy; X50.0XXA Overexertion from strenuous movement or load, initial encounter; Y93.89 Activity, other specified; Y92.89 Other specified places as the place of occurrence of the external cause; Y99.8 Other external cause status
CPT/HCPCS: 36415; 71045; 74176; 80048; 80076; 81001; 83690; 85025; 96374; 99285; J2270

== ENCOUNTER 2019-12-28 09:26 | Emergency (ER) | payer MEDICARE ==
[2019-12-28 10:03] VITALS: BP 173/81
== END 2019-12-28 12:25 | disposition left against medical advice (07) ==
LOC: ED 09:26
DX: M54.6 Pain in thoracic spine (principal); Z53.21 Procedure and treatment not carried out due to patient leaving prior to being seen by health care provider

== ENCOUNTER 2020-10-02 17:49 | Emergency (ER) | payer MEDICARE ==
[2020-10-02 18:03] VITALS: BP 135/70
--- NOTE | 2020-10-02 18:25 | Emergency Department Report ---
Blank Doc - Documentation Documentation: 69-year-old female that presents with dizziness and nausea. Denies any headac he. This initial assessment/diagnostic orders/clinical plan/treatment(s) is/are subject to change based on patient's health status, clinical progression and re- assessment by fellow clinical providers in the ED. Further treatment and workup at subsequent clinical providers discretion. Patient/guardians urged not to elope from the ED as their condition may be serious if not clinically assessed and managed. Initial orders include: 1- Patient sent to MAIN ED for further evaluation and treatment 2- labs 3- EKG 4- UA
[2020-10-02 18:57] LABS: Basophils # (Auto) 0.1 K/mm3 (0.0-0.1); Basophils % (Auto) 0.8 % (0.0-1.8); Eosinophils # (Auto) 0.1 K/mm3 (0.0-0.4); Hemoglobin 12.4 gm/dl (10.1-14.3); Lymphocytes # (Auto) 2.7 K/mm3 (1.2-5.4); Lymphocytes % (Auto) 40.3 % (13.4-35.0); Mean Corpuscular HGB Conc 34 % (30-34); Mean Corpuscular Volume 92 fl (79-97); Monocytes # (Auto) 0.5 K/mm3 (0.0-0.8); Monocytes % (Auto) 7.4 % (0.0-7.3); Platelet Count 197 K/mm3 (140-440); Red Blood Count 4.01 M/mm3 (3.65-5.03); Red Cell Distribution Width 16.5 % (13.2-15.2)
[2020-10-02 19:15] LABS: Albumin 4.4 g/dL (3.9-5); Calcium 8.8 mg/dL (8.4-10.2)
--- NOTE | 2020-10-02 20:30 | Emergency Department Report ---
- General Chief complaint: Nausea/Vomiting/Diarrhea Stated complaint: BODY ACHE/NAUSEA/DIZZY/HEADACHE Time Seen by Provider: 10/02/20 18:23 Source: patient Mode of arrival: Ambulatory Limitations: No Limitations - History of Present Illness Initial comments: 69-year-old female, history of ESRD, hypertension, diabetes, presents to ED with generalized weakness, nausea, dizziness x3 days. Patient states she was unable to go to dialysis 3 days ago because of her symptoms, however she did go to dialysis today. Patient states dizziness is more like the room spinning. Worse with movement. Patient denies any fever, cough, shortness of breath. Patient reports nausea, however she is not having any actual vomiting. She also denies diarrhea or abdominal pain. Patient denies any chest pain or headache. She denies having Covid or having close contact with anyone who has tested positive for COVID-19. MD Complaint: generalized weakness -: days(s) (3) Location: generalized Consistency: constant Improves with: none Worsens with: none Associated Symptoms: nausea/vomiting. denies: chest pain, fever/chills, headaches, shortness of breath - Related Data Home Medications Medication Instructions Recorded Confirmed Last Taken Vit B12/Levomefolate/Vit B6/B2 1 each PO DAILY 08/26/18 12/30/18 Unknown [Cerefolin Caplet] Previous Rx's Medication Instructions Recorded Last Taken Type Aspirin [Aspirin BABY CHEW TAB] 81 mg PO QDAY #30 tab.chew 08/28/18 Unknown Rx AtorvaSTATin [Lipitor] 40 mg PO QHS #30 tablet 08/28/18 Unknown Rx Pantoprazole [Protonix] 40 mg PO QDAY #30 tablet 08/28/18 Unknown Rx amLODIPine 10 mg PO QDAY #30 tablet 08/28/18 Unknown Rx methOCARBAMOL [Robaxin TAB] 500 mg PO Q8HR PRN #20 tablet 09/28/19 Unknown Rx Clindamycin [Clindamycin CAP] 300 mg PO Q8H 10 Days #30 cap 10/02/20 Unknown Rx Meclizine [Antivert] 25 mg PO TID PRN #20 tablet 10/02/20 Unknown Rx Allergies Allergy/AdvReac Type Severity Reaction Status Date / Time No Known Allergies Allergy Verified 02/22/16 23:57 ED Review of Systems ROS: Stated complaint: BODY ACHE/NAUSEA/DIZZY/HEADACHE Other details as noted in HPI Comment: All other systems reviewed and negative Constitutional: denies: chills, fever ENT: denies: ear pain Respiratory: denies: cough, shortness of breath Cardiovascular: denies: chest pain Gastrointestinal: nausea. denies: abdominal pain, vomiting, diarrhea Neurological: denies: headache ED Past Medical Hx - Past Medical History Previous Medical History?: Yes Hx Hypertension: Yes Hx CVA: Yes (TIA) Hx Diabetes: Yes Hx Renal Disease: Yes (M, W, F) Hx Dementia: Yes - Surgical History Past Surgical History?: Yes Additional Surgical History: DIAYSIS FISTULA LEFT UPPER ARM - Social History Smoking Status: Never Smoker Substance Use Type: None - Medications Home Medications: Home Medications Medication Instructions Recorded Confirmed Last Taken Type Vit B12/Levomefolate/Vit B6/B2 1 each PO DAILY 08/26/18 12/30/18 Unknown History [Cerefolin Caplet] Aspirin [Aspirin BABY CHEW TAB] 81 mg PO QDAY #30 tab.chew 08/28/18 12/30/18 Unknown Rx AtorvaSTATin [Lipitor] 40 mg PO QHS #30 tablet 08/28/18 12/30/18 Unknown Rx Pantoprazole [Protonix] 40 mg PO QDAY #30 tablet 08/28/18 12/30/18 Unknown Rx amLODIPine 10 mg PO QDAY #30 tablet 08/28/18 12/30/18 Unknown Rx methOCARBAMOL [Robaxin TAB] 500 mg PO Q8HR PRN #20 tablet 09/28/19 Unknown Rx Clindamycin [Clindamycin CAP] 300 mg PO Q8H 10 Days #30 cap 10/02/20 Unknown Rx Meclizine [Antivert] 25 mg PO TID PRN #20 tablet 10/02/20 Unknown Rx ED Physical Exam - General Limitations: No Limitations General appearance: alert, in no apparent distress - Head Head exam: Present: atraumatic, normocephalic - Eye Eye exam: Present: normal appearance, EOMI - ENT ENT exam: Present: mucous membranes moist, other (No mastoid tenderness) - Neck Neck exam: Present: normal inspection - Respiratory Respiratory exam: Present: normal lung sounds bilaterally. Absent: respiratory distress - Cardiovascular Cardiovascular Exam: Present: regular rate, normal rhythm - GI/Abdominal GI/Abdominal exam: Present: soft. Absent: distended, tenderness - Extremities Exam Extremities exam: Present: normal inspection - Neurological Exam Neurological exam: Present: alert, oriented X3, CN II-XII intact, normal gait. Absent: motor sensory deficit - Psychiatric Psychiatric exam: Present: normal affect, normal mood - Skin Skin exam: Present: warm, dry, intact, normal color ED Course Vital Signs 10/02/20 18:01 Temperature 98.2 F Pulse Rate 73 Respiratory 18 Rate Blood Pressure 135/70 O2 Sat by Pulse 98 Oximetry ED Medical Decision Making - Lab Data Result diagrams: 10/02/20 18:34 10/02/20 18:34 - EKG Data -: EKG Interpreted by De EKG shows normal: sinus rhythm, axis, intervals, QRS complexes Rate: normal - EKG Data When compared to previous EKG there are: no significant change (Compared to 08/2018) Interpretation: LVH, other (lateral T wave inversions) - Radiology Data Radiology results: report reviewed, image reviewed - Medical Decision Making 69-year-old female presents to ED with dizziness, nausea, generalized weakness. Labs are unremarkable. Patient does not appear to be dehydrated. CT head shows possible left mastoiditis. On exam, patient does not have any mastoid tenderness or swelling. She denies any ear pain or headache. This is possibly chronic. Will treat with antibiotics. Symptoms possibly secondary to vertigo. Prescriptions given. Outpatient follow-up is advised. Return precautions given. - Differential Diagnosis Vertigo, dehydration, intracranial abnormality Critical care attestation.: If time is entered above; I have spent that time in minutes in the direct care of this critically ill patient, excluding procedure time. ED Disposition Clinical Impression: Mastoiditis of left side, Vertigo Disposition: TO HOME OR SELFCARE Is pt being admited?: No Condition: Stable Instructions: Vertigo Prescriptions: Meclizine [Antivert] 25 mg PO TID PRN #20 tablet PRN Reason: Vertigo Clindamycin [Clindamycin CAP] 300 mg PO Q8H 10 Days #30 cap Referrals: PRIMARY MD HAZEL [Primary Care Provider] - 3-5 Days KARRI KRISHNA MD [Referring] - as needed Time of Disposition: 23:15
--- NOTE | 2020-10-02 22:57 | Cat Scan Report ---
CT head/brain wo con INDICATION / CLINICAL INFORMATION: Patient complains of dizziness. TECHNIQUE: Axial CT imaging of the brain was obtained without contrast. Coronal and sagittal reformatted imaging obtained and reviewed. All CT scans at this location are performed using CT dose reduction for ALAR A by means of automated exposure control. COMPARISON: 08/26/[address] FINDINGS: No intracranial hemorrhage, mass, or midline shift is noted. No extra-axial fluid collection or sugge stion of acute territorial infarction. Ventricular system and basilar cisterns are unremarkable. 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 There are a few small lacunar infarcts in the right basal ganglia also unchanged from prior exam. Mild to moderate cerebral and cerebellar atrophy is noted. Visualized paranasal sinuses and right mastoid air cells are grossly clear. However, there is left ma stoid air cell with air-fluid level indicating mild mastoiditis. No acute calvarial abnormality. IMPRESSION: 1. Probable mild left mastoiditis. Please correlate clinically. 2. No other significant acute intracranial abnormality. 3. 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 Signer Name: Cindi Carvalho MD Signed: 10/02/2020 10:53 PM Workstation Name: [id number]
== END 2020-10-02 23:20 | disposition home or self-care (01) ==
LOC: ED 17:49
DX: H70.92 Unspecified mastoiditis, left ear (principal); R42 Dizziness and giddiness; I10 Essential (primary) hypertension; E11.9 Type 2 diabetes mellitus without complications; F03.90 Unspecified dementia, unspecified severity, without behavioral disturbance, psychotic disturbance, mood disturbance, and anxiety; Z86.73 Personal history of transient ischemic attack (TIA), and cerebral infarction without residual deficits; Z98.890 Other specified postprocedural states; Z79.2 Long term (current) use of antibiotics; Z79.899 Other long term (current) drug therapy
CPT/HCPCS: 36415; 70450; 80053; 85025; 93005

== ENCOUNTER 2021-02-27 03:32 | Observation (INO) | payer MEDICARE ==
--- NOTE | 2021-02-27 04:19 | Emergency Department Report ---
HPI - General Chief Complaint: Dyspnea/Respdistress Time Seen by Provider: 02/27/21 04:06 - HPI HPI: This is a 70-year-old -Turk[place] female presents to the emergency department via EMS from home with complaint of shortness of breath that started just prior to presentation, about 1:30 AM in the morning. Patient denies any fever, chest pain, lower extremity swelling, cough, back pain, diaphoresis, but the patient does admit to some nausea with one episode of vomiting. She has a past medical history of hypertension, [id number] diabetes, CVA without residual deficits, hyperlipidemia, and she is end-stage renal disease on hemodialysis on Friday/Friday/Friday. The patient missed her last dialysis session due to transportation issues. Patient follows with Dr. Bryant for nephrology. She is a tobacco smoker but denies any illicit drug use. She has not taken anything for symptoms prior to presentation today. ED Past Medical Hx - Past Medical History Previous Medical History?: Yes Hx Hypertension: Yes Hx CVA: Yes (TIA) Hx Diabetes: Yes Hx Renal Disease: Yes (M, W, F) Hx Dementia: Yes - Surgical History Past Surgical History?: Yes Additional Surgical History: DIAYSIS FISTULA LEFT UPPER ARM - Social History Smoking Status: Current Every Day Smoker - Medications Home Medications: Home Medications Medication Instructions Recorded Confirmed Last Taken Type Vit B12/Levomefolate/Vit B6/B2 1 each PO DAILY 08/26/18 12/30/18 Unknown History [Cerefolin Caplet] Aspirin [Aspirin BABY CHEW TAB] 81 mg PO QDAY #30 tab.chew 08/28/18 12/30/18 Unknown Rx AtorvaSTATin [Lipitor] 40 mg PO QHS #30 tablet 08/28/18 12/30/18 Unknown Rx Pantoprazole [Protonix] 40 mg PO QDAY #30 tablet 08/28/18 12/30/18 Unknown Rx amLODIPine 10 mg PO QDAY #30 tablet 08/28/18 12/30/18 Unknown Rx methOCARBAMOL [Robaxin TAB] 500 mg PO Q8HR PRN #20 tablet 09/28/19 Unknown Rx Clindamycin [Clindamycin CAP] 300 mg PO Q8H 10 Days #30 cap 10/02/20 Unknown Rx Meclizine [Antivert] 25 mg PO TID PRN #20 tablet 10/02/20 Unknown Rx ED Review of Systems ROS: Stated complaint: KONSTANTIN Other details as noted in HPI Comment: All other systems reviewed and negative Constitutional: denies: chills, fever Eyes: denies: eye pain, vision change ENT: denies: ear pain, throat pain Respiratory: shortness of breath. denies: orthopnea Cardiovascular: denies: chest pain, edema Gastrointestinal: nausea. denies: abdominal pain Genitourinary: denies: dysuria, discharge Musculoskeletal: denies: joint swelling, arthralgia Skin: denies: rash, lesions Neurological: denies: headache, weakness Physical Exam - Physical Exam Physical Exam: GENERAL: The patient is well-developed well-nourished. HENT: Normocephalic. Atraumatic. Patient has moist mucous membranes. EYES: Extraocular motions are intact. NECK: Supple. Trachea is midline. CHEST/LUNGS: Coarse breath sounds throughout the chest. There is some tachypnea but no accessory muscle use. HEART/CARDIOVASCULAR: Regular. There is no tachycardia. There is no murmur. ABDOMEN: Abdomen is soft, nontender. Patient has normal bowel sounds. SKIN: Skin is warm and dry. NEURO: The patient is awake, alert, and oriented. The patient is cooperative. The patient has no focal neurologic deficits. Normal speech. MUSCULOSKELETAL: There is no tenderness or deformity. There is no limitation range of motion. ED Course - Consultations Consultation #1: 02/27/21 05:15 I spoke to the patient's electric melt operator, Dr. Bryant, who has agreed to consult on this patient and provide orders for dialysis. ED Medical Decision Making - Lab Data Result diagrams: 02/27/21 04:15 02/27/21 04:15 Lab Results 02/27/21 02/27/21 02/27/21 Range/Units 04:15 04:15 04:15 WBC 11.9 H (4.5-11.0) K/mm3 RBC 3.79 (3.65-5.03) M/mm3 Hgb 11.2 (10.1-14.3) gm/dl Hct 33.8 (30.3-42.9) % MCV 89 (79-97) fl MCH 29 (28-32) pg MCHC 33 (30-34) % RDW 18.6 H (13.2-15.2) % Plt Count 189 (140-440) K/mm3 Lymph % (Auto) 13.3 L (13.4-35.0) % Mayes % (Auto) 3.8 (0.0-7.3) % Eos % (Auto) 3.2 (0.0-4.3) % Baso % (Auto) 1.0 (0.0-1.8) % Lymph # (Auto) 1.6 (1.2-5.4) K/mm3 Mayes # (Auto) 0.5 (0.0-0.8) K/mm3 Eos # (Auto) 0.4 (0.0-0.4) K/mm3 Baso # (Auto) 0.1 (0.0-0.1) K/mm3 Seg Neutrophils % 78.7 H (40.0-70.0) % Seg Neutrophils # 9.4 H (1.8-7.7) K/mm3 PT 12.3 (12.2-14.9) Sec. INR 0.93 (0.87-1.13) Sodium 139 (137-145) mmol/L Potassium 4.1 (3.6-5.0) mmol/L Chloride 97.3 L (98-107) mmol/L Carbon Dioxide 22 (22-30) mmol/L Anion Gap 24 mmol/L BUN 61 H (7-17) mg/dL Creatinine 11.4 H (0.6-1.2) mg/dL Estimated GFR 4 ml/min BUN/Creatinine Ratio 5 % Glucose 184 H (65-100) mg/dL Calcium 8.5 (8.4-10.2) mg/dL Total Bilirubin 0.40 (0.1-1.2) mg/dL AST 21 (5-40) units/L ALT 20 (7-56) units/L Alkaline Phosphatase 101 (35-129) units/L NT-Pro-B Natriuret Pep (0-900) pg/mL Total Protein 7.4 (6.3-8.2) g/dL Albumin 4.1 (3.9-5) g/dL Albumin/Globulin Ratio 1.2 % /05/14 Range/Units 04:15 WBC (4.5-11.0) K/mm3 RBC (3.65-5.03) M/mm3 Hgb (10.1-14.3) gm/dl Hct (30.3-42.9) % MCV (79-97) fl MCH (28-32) pg MCHC (30-34) % RDW (13.2-15.2) % Plt Count (140-440) K/mm3 Lymph % (Auto) (13.4-35.0) % Mayes % (Auto) (0.0-7.3) % Eos % (Auto) (0.0-4.3) % Baso % (Auto) (0.0-1.8) % Lymph # (Auto) (1.2-5.4) K/mm3 Mayes # (Auto) (0.0-0.8) K/mm3 Eos # (Auto) (0.0-0.4) K/mm3 Baso # (Auto) (0.0-0.1) K/mm3 Seg Neutrophils % (40.0-70.0) % Seg Neutrophils # (1.8-7.7) K/mm3 PT (12.2-14.9) Sec. INR (0.87-1.13) Sodium (137-145) mmol/L Potassium (3.6-5.0) mmol/L Chloride (98-107) mmol/L Carbon Dioxide (22-30) mmol/L Anion Gap mmol/L BUN (7-17) mg/dL Creatinine (0.6-1.2) mg/dL Estimated GFR ml/min BUN/Creatinine Ratio % Glucose (65-100) mg/dL Calcium (8.4-10.2) mg/dL Total Bilirubin (0.1-1.2) mg/dL AST (5-40) units/L ALT (7-56) units/L Alkaline Phosphatase (35-129) units/L NT-Pro-B Natriuret Pep 00673 H (0-900) pg/mL Total Protein (6.3-8.2) g/dL Albumin (3.9-5) g/dL Albumin/Globulin Ratio % - EKG Data -: EKG Interpreted by Ma EKG shows normal: sinus rhythm, axis, intervals (Prolonged QTC), QRS complexes, ST-T waves (Nonspecific ST-T waves, T wave inversions to lateral leads V5 and V6) Rate: normal - EKG Data When compared to previous EKG there are: no significant change Interpretation: unchanged when compared t (10/02/20) - Radiology Data Radiology results: image reviewed interpreted by me: Chest x-ray shows mild to moderate cardiomegaly. There is some bilateral interstitial edema and pulmonary vascular congestion. No pneumothorax. - Medical Decision Making This patient presented to the emergency department with some shortness of breath that started earlier this evening. On examination she has some tachypnea but no accessory muscle use. However the patient had a room air pulse ox, per EMS, of about 90% that went up to 98% with 2 L nasal cannula. Chest x-ray shows some pulmonary vascular congestion and interstitial edema consistent with hypervolemia. The patient missed her last dialysis session. Labs shows renal insufficiency consistent with her end-stage renal disease. No hyperkalemia at this time. The patient has been given 2 different doses of IV antihypertensive medication and the patient remains hypertensive. Nephrology has been contacted and consulted. The patient has been accepted for admission by the hospitalist, Dr. Souza. Critical Care Time: No Critical care attestation.: If time is entered above; I have spent that time in minutes in the direct care of this critically ill patient, excluding procedure time. ED Disposition Clinical Impression: Hypertensive urgency, malignant, ESRD needing dialysis, Missed dialysis Dyspnea Qualifiers: Dyspnea type: shortness of breath Qualified Code(s): R06.02 - Shortness of alexia th; R06.00 - Dyspnea, unspecified; R06.01 - Orthopnea Volume overload Qualifiers: Hypervolemia type: unspecified Qualified Code(s): E87.70 - Fluid overload, unspecified Disposition: OP ADMIT IP TO THIS HOSP Is pt being admited?: Yes Condition: Fair Time of Disposition: 05:18
[2021-02-27] MEDS ORDERED: hydrALAZINE 20 MG/1 ML INJ IV ONE ×2 (04:22→05:01)
[2021-02-27 04:45] LABS: Basophils # (Auto) 0.1 K/mm3 (0.0-0.1); Eosinophils # (Auto) 0.4 K/mm3 (0.0-0.4); Eosinophils % (Auto) 3.2 % (0.0-4.3); Hematocrit 33.8 % (30.3-42.9); Hemoglobin 11.2 gm/dl (10.1-14.3); Lymphocytes # (Auto) 1.6 K/mm3 (1.2-5.4); Lymphocytes % (Auto) 13.3 % (13.4-35.0); Mean Corpuscular HGB Conc 33 % (30-34); Mean Corpuscular Volume 89 fl (79-97); Monocytes # (Auto) 0.5 K/mm3 (0.0-0.8); Monocytes % (Auto) 3.8 % (0.0-7.3); Platelet Count 189 K/mm3 (140-440); Red Blood Count 3.79 M/mm3 (3.65-5.03); Red Cell Distribution Width 18.6 % (13.2-15.2)
[2021-02-27 04:51] LABS: INR 0.93 (0.87-1.13)
--- NOTE | 2021-02-27 04:56 | XRay Report ---
CHEST 1 VIEW 02/27/2021 3:46 AM INDICATION / CLINICAL INFORMATION: SOB. COMPARISON: None available FINDINGS: SUPPORT DEVICES: None. HEART / MEDIASTINUM: No significant abnormality. LUNGS / PLEURA: There is mild bilateral pulmonary edema. No pneumothorax. ADDITIONAL FINDINGS: No significant additional findings. IMPRESSION: 1. There is mild bilateral pulmonary edema. Signer Name: Daniel Garcia MD Signed: 02/27/2021 4:51 AM Workstation Name: [id number]
[2021-02-27 04:57] LABS: Albumin 4.1 g/dL (3.9-5); Calcium 8.5 mg/dL (8.4-10.2)
[2021-02-27] MEDS ORDERED: MECLIZINE 25 MG TAB PO PRN (05:55)
[2021-02-27] MEDS ORDERED: ACETAMINOPHEN 325 MG TAB PO PRN (05:56)
[2021-02-27] MEDS ORDERED: ONDANSETRON 4 MG/2 ML INJ IV PRN (05:56)
[2021-02-27] MEDS ORDERED: ALBUTEROL 2.5 MG/3 ML NEBU IH PRN (06:03)
[2021-02-27] MEDS ORDERED: DEXTROSE 50% IN WATER (25GM) 50 ML SYRINGE IV PRN ×2 (06:03→06:23)
[2021-02-27] MEDS ORDERED: hydrALAZINE 20 MG/1 ML INJ IV PRN (06:07)
--- NOTE | 2021-02-27 06:13 | History and Physical Report ---
History of Present Illness Date of examination: 02/27/21 Date of admission: 02/27/21 05:25 Chief complaint: Dyspnea Respiratory distress History of present illness: 70-year-old -Martiniqu[place] female with past medical history of past medical history of hypertension, [id number] diabetes, CVA without residual deficits, hyperlipidemia, and she is end-stage renal disease on hemodialysis on Friday/Friday/Friday was brought to the emergency department via EMS from home with complaint of shortness of breath that started just prior to presentation, about 1:30 AM in the morning. Patient denies any fever, chest pain, lower extremity swelling, cough, back pain, diaphoresis, but the patient does admit to some nausea with one episode of vomiting. The patient missed her last dialysis session due to transportation issues. Patient follows with Dr. Bryant for nephrology. She is a tobacco smoker but denies any illicit drug use. She has not taken anything for symptoms prior to presentation today. In the emergency room patient is found to have volume overloaded.Chest x-ray shows some pulmonary vascular congestion and interstitial edema consistent with hypervolemia. The patient missed her last dialysis session. Labs shows renal insufficiency consistent with her end-stage renal disease. No hyperkalemia at this time. Past History Past Medical History: diabetes, ESRD, hypertension, hyperlipidemia, stroke Medications and Allergies Allergies Allergy/AdvReac Type Severity Reaction Status Date / Time No Known Allergies Allergy Verified 02/22/16 23:57 Home Medications Medication Instructions Recorded Confirmed Last Taken Type Vit B12/Levomefolate/Vit B6/B2 1 each PO DAILY 08/26/18 12/30/18 Unknown History [Cerefolin Caplet] Aspirin [Aspirin BABY CHEW TAB] 81 mg PO QDAY #30 tab.chew 08/28/18 12/30/18 U nknown Rx AtorvaSTATin [Lipitor] 40 mg PO QHS #30 tablet 08/28/18 12/30/18 Unknown Rx Pantoprazole [Protonix] 40 mg PO QDAY #30 tablet 08/28/18 12/30/18 Unknown Rx amLODIPine 10 mg PO QDAY #30 tablet 08/28/18 12/30/18 Unknown Rx methOCARBAMOL [Robaxin TAB] 500 mg PO Q8HR PRN #20 tablet 09/28/19 Unknown Rx Clindamycin [Clindamycin CAP] 300 mg PO Q8H 10 Days #30 cap 10/02/20 Unknown Rx Meclizine [Antivert] 25 mg PO TID PRN #20 tablet 10/02/20 Unknown Rx Active Meds: Active Medications Acetaminophen (Acetaminophen 325 Mg Tab) 650 mg PO Q4H PRN PRN Reason: Pain MILD(1-3)/Fever >100.5/NARANJO Albuterol (Albuterol 2.5 Mg/3 Ml Nebu) 2.5 mg IH Q4HRT PRN PRN Reason: Shortness Of Breath Amlodipine Besylate (Amlodipine 10 Mg Tab) 10 mg PO QDAY [facility] Aspirin (Aspirin 81 Mg Tab Chew) 81 mg PO QDAY [facility] Atorvastatin Calcium (Atorvastatin 40 Mg Tab) 40 mg PO QHS [facility] Clindamycin HCl (Clindamycin 300 Mg Cap) 300 mg PO Q8HR [facility]; Protocol Dextrose (Dextrose 50% In Water (25gm) 50 Ml Syringe) 50 ml IV Q30MIN PRN; Protocol PRN Reason: Hypoglycemia Famotidine (Famotidine 20 Mg Tab) 20 mg PO BID [facility] Heparin Sodium (Porcine) (Heparin 5,000 Unit/1 Ml Vial) 5,000 unit SUB-Q Q8HR [facility] Hydralazine HCl (Hydralazine 20 Mg/1 Ml Inj) 10 mg IV Q6H PRN PRN Reason: htn Meclizine HCl (Meclizine 25 Mg Tab) 25 mg PO TID PRN PRN Reason: Vertigo Methocarbamol (Methocarbamol 500 Mg Tab) 500 mg PO Q8H PRN PRN Reason: Muscle Spasm Ondansetron HCl (Ondansetron 4 Mg/2 Ml Inj) 4 mg IV Q8H PRN PRN Reason: Nausea And Vomiting Pantoprazole Sodium (Pantoprazole 40 Mg Tab) 40 mg PO QDAY [facility] Sodium Chloride (Sodium Chloride 0.9% 10 Ml Flush Syringe) 10 ml IV BID [facility] Sodium Chloride (Sodium Chloride 0.9% 10 Ml Flush Syringe) 10 ml IV PRN PRN PRN Reason: LINE FLUSH Review of Systems Cardiovascular: orthopnea, shortness of breath Respiratory: shortness of breath, dyspnea on exertion Exam - Constitutional Vitals: Temp Pulse Resp BP Pulse Ox 97.9 F 82 15 206/83 99 02/27/21 04:06 02/27/21 05:44 02/27/21 05:44 02/27/21 05:44 02/27/21 05:44 General appearance: Present: no acute distress, well-nourished - EENT Eyes: Present: PERRL ENT: hearing intact, clear oral mucosa - Neck Neck: Present: supple, normal ROM - Respiratory Respiratory effort: normal Respiratory: bilateral: rales - Cardiovascular Heart Sounds: Present: S1 & S2. Absent: rub, click - Extremities Extremities: pulses symmetrical, No edema Peripheral Pulses: within normal limits - Abdominal General gastrointestinal: Present: soft, non-tender, non-distended, normal bowel sounds Female genitourinary: Present: normal - Integumentary Integumentary: Present: clear, warm, dry - Musculoskeletal Musculoskeletal: gait normal, strength equal bilaterally - Psychiatric Psychiatric: appropriate mood/affect, intact judgment & insight - Neurologic Neurologic: CNII-XII intact, moves all extremities Results - Labs CBC & Chem 7: 02/27/21 04:15 02/27/21 04:15 Labs: Laboratory Last Values WBC 11.9 K/mm3 (4.5-11.0) H 02/27/21 04:15 RBC 3.79 M/mm3 (3.65-5.03) 02/27/21 04:15 Hgb 11.2 gm/dl (10.1-14.3) 02/27/21 04:15 Hct 33.8 % (30.3-42.9) 02/27/21 04:15 MCV 89 fl (79-97) 02/27/21 04:15 MCH 29 pg (28-32) 02/27/21 04:15 MCHC 33 % (30-34) 02/27/21 04:15 RDW 18.6 % (13.2-15.2) H 02/27/21 04:15 Plt Count 189 K/mm3 (140-440) 02/27/21 04:15 Lymph % (Auto) 13.3 % (13.4-35.0) L 02/27/21 04:15 Bracken % (Auto) 3.8 % (0.0-7.3) 02/27/21 04:15 Eos % (Auto) 3.2 % (0.0-4.3) 02/27/21 04:15 Baso % (Auto) 1.0 % (0.0-1.8) 02/27/21 04:15 Lymph # (Auto) 1.6 K/mm3 (1.2-5.4) 02/27/21 04:15 Bracken # (Auto) 0.5 K/mm3 (0.0-0.8) 02/27/21 04:15 Eos # (Auto) 0.4 K/mm3 (0.0-0.4) 02/27/21 04:15 Baso # (Auto) 0.1 K/mm3 (0.0-0.1) 02/27/21 04:15 Seg Neutrophils % 78.7 % (40.0-70.0) H 02/27/21 04:15 Seg Neutrophils # 9.4 K/mm3 (1.8-7.7) H 02/27/21 04:15 PT 12.3 Sec. (12.2-14.9) 02/27/21 04:15 INR 0.93 (0.87-1.13) 02/27/21 04:15 Sodium 139 mmol/L (137-145) 02/27/21 04:15 Potassium 4.1 mmol/L (3.6-5.0) 02/27/21 04:15 Chloride 97.3 mmol/L (98-107) L 02/27/21 04:15 Carbon Dioxide 22 mmol/L (22-30) 02/27/21 04:15 Anion Gap 24 mmol/L 02/27/21 04:15 BUN 61 mg/dL (7-17) H 02/27/21 04:15 Creatinine 11.4 mg/dL (0.6-1.2) H 02/27/21 04:15 Estimated GFR 4 ml/min 02/27/21 04:15 BUN/Creatinine Ratio 5 % 02/27/21 04:15 Glucose 184 mg/dL (65-100) H 02/27/21 04:15 Calcium 8.5 mg/dL (8.4-10.2) 02/27/21 04:15 Total Bilirubin 0.40 mg/dL (0.1-1.2) 02/27/21 04:15 AST 21 units/L (5-40) 02/27/21 04:15 ALT 20 units/L (7-56) 02/27/21 04:15 Alkaline Phosphatase 101 units/L (35-129) 04/06/21 04:15 NT-Pro-B Natriuret Pep 46947 pg/mL (0-900) H 02/27/21 04:15 Total Protein 7.4 g/dL (6.3-8.2) 02/27/21 04:15 Albumin 4.1 g/dL (3.9-5) 02/27/21 04:15 Albumin/Globulin Ratio 1.2 % 02/27/21 04:15 - Imaging and Cardiology Chest x-ray: image reviewed Assessment and Plan - Patient Problems (1) Dyspnea Current Visit: Yes Status: Acute Qualifiers: Dyspnea type: shortness of breath Qualified Code(s): R06.02 - Shortness of breath; R06.00 - Dyspnea, unspecified; R06.01 - Orthopnea Plan to address problem: Admit the patient to the medical telemetry oxygen by nasal cannula 3 L/min. DuoNeb by nebulizer every 4 hours as needed. Will consult nephrology for hemodialysis in the morning. Continue the home medication (2) ESRD needing dialysis Current Visit: Yes Status: Acute Plan to address problem: Admit the patient to the medical telemetry oxygen by nasal cannula 3 L/min. DuoNeb by nebulizer every 4 hours as needed. Will consult nephrology for hemodialysis in the morning. Continue the home medication (3) Hypertensive urgency, malignant Current Visit: Yes Status: Acute Plan to address problem: We will put the patient on amlodipine 10 mg p.o. daily hydralazine 10 mg IV every 6 hours as needed. We will monitor the blood pressure closely. We also consult nephrology for hemodialysis (4) Acute hyperglycemia Current Visit: No Status: Acute Plan to address problem: We will put the patient on 1800 kcal ADA diet. We also put the patient on insulin sliding scale. CBC BMP in the morning (5) CVA (cerebral vascular accident) Current Visit: No Status: Acute Qualifiers: CVA mechanism: unspecified Qualified Code(s): I63.9 - Cerebral infarction, unspecified Plan to address problem: Stable. We will continue the aspirin 81 mg p.o. daily and Lipitor 40 mg p.o. nightly. Patient will follow up with neurologist as outpatient (6) DVT prophylaxis Current Visit: No Status: Acute Plan to address problem: Heparin 5000 units subcu every 8 hours for DVT prophylaxis. Protonix 40 mg p.o. daily for GI prophylaxis. Patient is a full code
[2021-02-27] MEDS: CLINDAMYCIN 300 MG CAP PO SCH ×3 (06:39→21:03)
[2021-02-27] MEDS: INSULIN LISPRO 100 UNIT/ML SUB-Q SCH ×4 (09:03→23:25)
[2021-02-27] MEDS ORDERED: SODIUM CHLORIDE 0.9% 100 ML IV PRN (09:47)
[2021-02-27] MEDS: amLODIPine 10 MG TAB PO SCH (10:19)
[2021-02-27] MEDS: FAMOTIDINE 20 MG TAB PO SCH (10:20)
[2021-02-27] MEDS: PANTOPRAZOLE 40 MG TAB PO SCH (10:20)
[2021-02-27] MEDS: ASPIRIN 81 MG TAB CHEW PO SCH (10:20)
--- NOTE | 2021-02-27 10:39 | Electrocardiograph Report ---
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
--- NOTE | 2021-02-27 11:06 | Event Note ---
Date: 02/27/21 70-year-old female with a medical history of ESRD on hemodialysis admitted with shortness of breath. Patient missed hemodialysis on Friday as daughter could not take her to her hemodialysis session Nephrology consulted this AM. Labs reviewed Physical exam examination consistent with fluid overload Plan for hemodialysis as per nephrology. BP elevated. Started her on clonidine
[2021-02-27 12:50] LABS: Hepatitis B Surface Antigen Non-Reactive (Negative); Hepatitis C Virus Antibody Non-Reactive (NonReactive)
--- NOTE | 2021-02-27 14:04 | Discharge Summary ---
Providers - Providers Date of Admission: 02/27/21 05:25 Date of discharge: 03/02/21 Attending physician: ALEIDA WEBB 02/27/21 05:07 Consult to Physician [CONS] Routine Comment: Dr. Mello spoke with Dr. 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 Patient denies any fever, chest pain, lower extremity swelling, cough, back pain, diaphoresis, but the patient does admit to some nausea with one episode of vomiting. The patient missed her last dialysis session due to transportation issues. Patient follows with Dr. Chang for nephrology. She is a tobacco smoker but denies any illicit drug use. She has not taken anything for symptoms prior to presentation today. In the emergency room patient is found to have volume overloaded.Chest x-ray shows some pulmonary vascular congestion and interstitial edema consistent with hypervolemia. The patient missed her last dialysis session. Labs shows renal insufficiency consistent with her end-stage renal disease. No hyperkalemia at this time. Nephrology was consulted. She had HD with no complications. Her blood pressure medication has been adjusted. She complained of back pain and MRI studies done were negative for acute abnormality - no canal stenosis or foramina narrowing. She mentions her leg weakness has been there since she had a stroke in September 2020. Also discussed with son who states she has been having difficulty with ambulation for a while now. PT saw her and recommended placement. Insurance has denied so far. CM discussed with son who agrees to take patient home and a referral to rehab will be made as outpatient. Disposition: TO HOME OR SELFCARE Final Discharge Diagnosis (Prints w/discharge instructions): Fluid overload Time spent for discharge: 20 mins - Discharge Diagnoses (1) ESRD needing dialysis Status: Acute Core Measure Documentation - Palliative Care Palliative Care/ Comfort Measures: Not Applicable - Core Measures Any of the following diagnoses?: none Exam - Constitutional Vitals: Temp Pulse Resp BP Pulse Ox 97.8 F 64 18 208/82 100 02/27/21 11:35 02/27/21 12:33 02/27/21 11:35 02/27/21 12:33 02/27/21 08:15 General appearance: Present: no acute distress, well-nourished - EENT Eyes: Present: PERRL ENT: hearing intact, clear oral mucosa - Neck Neck: Present: supple, normal ROM - Respiratory Respiratory effort: normal Respiratory: bilateral: CTA - Cardiovascular Heart Sounds: Present: S1 & S2. Absent: rub, click - Extremities Extremities: pulses symmetrical, No edema Peripheral Pulses: within normal limits - Abdominal General gastrointestinal: Present: soft, non-tender, non-distended, normal bowel sounds Female genitourinary: Present: normal - Integumentary Integumentary: Present: clear, warm, dry - Musculoskeletal Musculoskeletal: gait normal, strength equal bilaterally - Psychiatric Psychiatric: appropriate mood/affect, intact judgment & insight - Neurologic Neurologic: CNII-XII intact, moves all extremities Plan Diet: low salt, renal Additional Instructions: Use clonidine 0.1mg as needed for BP >180/100. Continue HD as scheduled. Follow up with PCP in 1-2 weeks Follow up with: PRIMARY CARE, [Primary Care Provider] - 7 Days Prescriptions: cloNIDine [Catapres] 0.1 mg PO BID PRN #20 tablet PRN Reason: Blood pressure > 180/100
[2021-02-27] MEDS: EPOETIN ALFA-EPBX 10,000 UNIT/1 ML VIAL IV PRN (14:57)
[2021-02-27] MEDS: cloNIDine 0.1 MG TAB PO SCH ×2 (16:25→21:03)
--- NOTE | 2021-02-27 16:25 | Consultation ---
History of Present Illness - Reason for Consult Consult date: 02/27/21 end stage renal disease - History of Present Illness very pleasant 70-year-old -Cyp[place] female with a past medical history of end-stage renal disease in the setting of hypertension and diabetes, who was well known to us in the outpatient dialysis unit, presented to the emergency room department secondary to worsening shortness of breath over 24 hour period prior to admission. She typically gets dialyzed on a Friday schedule at her last hemodialysis session was Friday as she was not able to go yesterday for treatment due to the aforementioned shortness of breath. Chest x- rays initially do show signs of pulmonary edema. I was able to see patient today in the inpatient dialysis unit as she started her treatment. I have placed orders for dialysis today and will have her come back tomorrow for a second consecutive session. Past History Past Medical History: diabetes, ESRD, hypertension, hyperlipidemia, stroke Medications and Allergies Allergies Allergy/AdvReac Type Severity Reaction Status Date / Time No Known Allergies Allergy Verified 02/22/16 23:57 Home Medications Medication Instructions Recorded Confirmed Last Taken Type Vit B12/Levomefolate/Vit B6/B2 1 each PO DAILY 08/26/18 12/30/18 Unknown History [Cerefolin Caplet] Aspirin [Aspirin BABY CHEW TAB] 81 mg PO QDAY #30 tab.chew 08/28/18 12/30/18 Unknown Rx AtorvaSTATin [Lipitor] 40 mg PO QHS #30 tablet 08/28/18 12/30/18 Unknown Rx Pantoprazole [Protonix TAB] 40 mg PO QDAY #30 tablet 08/28/18 12/30/18 Unknown Rx amLODIPine 10 mg PO QDAY #30 tablet 08/28/18 12/30/18 Unknown Rx methOCARBAMOL [Robaxin TAB] 500 mg PO Q8HR PRN #20 tablet 09/28/19 Unknown Rx Meclizine [Antivert] 25 mg PO TID PRN #20 tablet 10/02/20 Unknown Rx cloNIDine [Catapres] 0.1 mg PO TID #90 tablet 02/27/21 Unknown Rx Active Meds: Active Medications Acetaminophen (Acetaminophen 325 Mg Tab) 650 mg PO Q4H PRN PRN Reason: Pain MILD(1-3)/Fever >100.5/NARANJO Albuterol (Albuterol 2.5 Mg/3 Ml Nebu) 2.5 mg IH Q4HRT PRN PRN Reason: Shortness Of Breath Amlodipine Besylate (Amlodipine 10 Mg Tab) 10 mg PO QDAY [facility] Last Admin: 02/27/21 10:19 Dose: 10 mg Documented by: Aspirin (Aspirin 81 Mg Tab Chew) 81 mg PO QDAY [facility] Last Admin: 02/27/21 10:20 Dose: 81 mg Documented by: Atorvastatin Calcium (Atorvastatin 40 Mg Tab) 40 mg PO QHS [facility] Clindamycin HCl (Clindamycin 300 Mg Cap) 300 mg PO Q8HR [facility]; Protocol Stop: 03/03/21 22:01 Last Admin: 02/27/21 06:39 Dose: 300 mg Documented by: Clonidine HCl (Clonidine 0.1 Mg Tab) 0.1 mg PO Q8HR [facility] Dextrose (Dextrose 50% In Water (25gm) 50 Ml Syringe) 0 ml IV Q30MIN PRN; Protocol PRN Reason: Hypoglycemia Famotidine (Famotidine 20 Mg Tab) 20 mg PO QAM [facility] Last Admin: 02/27/21 10:20 Dose: 20 mg Documented by: Heparin Sodium (Porcine) (Heparin 5,000 Unit/1 Ml Vial) 5,000 unit SUB-Q Q8HR [facility] Hydralazine HCl (Hydralazine 20 Mg/1 Ml Inj) 10 mg IV Q6H PRN PRN Reason: htn Last Admin: 02/27/21 12:33 Dose: 10 mg Documented by: Sodium Chloride (Nacl 0.9%) 100 mls @ 999 mls/hr IV [facility] PRN PRN Reason: Hypotension Insulin Human Lispro (Insulin Lispro 100 Unit/Ml) 0 unit SUB-Q [facility]; Protocol Last Admin: 02/27/21 13:45 Dose: Not Given Documented by: Meclizine HCl (Meclizine 25 Mg Tab) 25 mg PO TID PRN PRN Reason: Vertigo Methocarbamol (Methocarbamol 500 Mg Tab) 500 mg PO Q8H PRN PRN Reason: Muscle Spasm Ondansetron HCl (Ondansetron 4 Mg/2 Ml Inj) 4 mg IV Q8H PRN PRN Reason: Nausea And Vomiting Pantoprazole Sodium (Pantoprazole 40 Mg Tab) 40 mg PO QDAY [facility] Last Admin: 02/27/21 10:20 Dose: 40 mg Documented by: Sodium Chloride (Sodium Chloride 0.9% 10 Ml Flush Syringe) 10 ml IV BID [facility] Last Admin: 02/27/21 10:22 Dose: 10 ml Documented by: Sodium Chloride (Sodium Chloride 0.9% 10 Ml Flush Syringe) 10 ml IV PRN PRN PRN Reason: LINE FLUSH Review of Systems Constitutional: weakness, lethargy Cardiovascular: orthopnea, shortness of breath Respiratory: shortness of breath Exam - Vital Signs Vital signs: Vital Signs Temp Pulse Resp BP Pulse Ox 97.9 F 84 18 234/104 97 02/27/21 04:06 02/27/21 04:06 02/27/21 04:06 02/27/21 04:06 02/27/21 04:06 - General Appearance General appearance: appears stated age EENT: ATNC Neck: Present: neck supple Respiratory: Decreased Breath Sounds Heart: regular Gastrointestinal: Present: normal Integumentary: no rash Neurologic: no focal deficit, alert and oriented x3 Musculoskeletal: Present: deferred Psychiatric: cooperative Results - Lab Results 02/27/21 04:15 02/27/21 04:15 Most recent lab results Calcium 8.5 mg/dL (8.4-10.2) 02/27/21 04:15 Assessment and Plan - Patient Problems (1) ESRD needing dialysis Current Visit: Yes Status: Acute Plan to address problem: I have placed orders for hemodialysis today and starting tomorrow will place her back on a Friday hemodialysis schedule. We will try to optimize volume with aggressive fluid removal during dialysis. Will monitor closely. (2) Volume overload Current Visit: Yes Status: Acute Qualifiers: Hypervolemia type: unspecified Qualified Code(s): E87.70 - Fluid overload, unspecified Plan to address problem: I counseled patient on the importance of maintaining a euvolemic status especially in regards to making sure that she does not miss any dialysis treatments. Also counseled her on the importance of maintaining a low sodium diet. (3) Hypertensive chronic kidney disease with stage 5 chronic kidney disease or end stage renal disease Current Visit: No Status: Chronic Plan to address problem: continue monitoring blood pressures under current regimen. We will further optimize blood pressure control with optimizing her volume status. (4) Secondary hyperparathyroidism (of renal origin) Current Visit: No Status: Chronic Plan to address problem: can continue on her current outpatient phosphorus binder regimen. (5) Type 2 diabetes mellitus with chronic kidney disease Current Visit: No Status: Chronic Plan to address problem: diabetes management per primary attending.
[2021-02-27] MEDS: HEPARIN 5,000 UNIT/1 ML VIAL SUB-Q SCH ×2 (16:28→21:04)
[2021-02-28] MEDS: HEPARIN 5,000 UNIT/1 ML VIAL SUB-Q SCH ×3 (05:27→23:37)
[2021-02-28] MEDS: CLINDAMYCIN 300 MG CAP PO SCH ×3 (05:27→23:37)
[2021-02-28] MEDS: cloNIDine 0.1 MG TAB PO SCH ×3 (07:41→23:37)
[2021-02-28] MEDS: INSULIN LISPRO 100 UNIT/ML SUB-Q SCH ×4 (07:50→23:37)
[2021-02-28 08:49] LABS: Basophils # (Auto) 0.1 K/mm3 (0.0-0.1); Basophils % (Auto) 1.1 % (0.0-1.8); Eosinophils # (Auto) 0.2 K/mm3 (0.0-0.4); Eosinophils % (Auto) 2.7 % (0.0-4.3); Hematocrit 34.6 % (30.3-42.9); Hemoglobin 11.1 gm/dl (10.1-14.3); Lymphocytes # (Auto) 1.9 K/mm3 (1.2-5.4); Lymphocytes % (Auto) 22.4 % (13.4-35.0); Mean Corpuscular HGB Conc 32 % (30-34); Mean Corpuscular Volume 88 fl (79-97); Monocytes # (Auto) 0.8 K/mm3 (0.0-0.8); Monocytes % (Auto) 9.5 % (0.0-7.3); Platelet Count 168 K/mm3 (140-440); Red Blood Count 3.91 M/mm3 (3.65-5.03); Red Cell Distribution Width 19.1 % (13.2-15.2)
[2021-02-28] MEDS ORDERED: SODIUM CHLORIDE 0.9% 100 ML IV PRN (09:00)
[2021-02-28 09:06] LABS: Calcium 8.7 mg/dL (8.4-10.2)
[2021-02-28] MEDS: FAMOTIDINE 20 MG TAB PO SCH (09:21)
[2021-02-28] MEDS: PANTOPRAZOLE 40 MG TAB PO SCH (09:21)
[2021-02-28] MEDS: amLODIPine 10 MG TAB PO SCH (09:22)
[2021-02-28] MEDS: ASPIRIN 81 MG TAB CHEW PO SCH (09:22)
--- NOTE | 2021-02-28 10:57 | Progress Note ---
Assessment and Plan - Patient Problems (1) ESRD needing dialysis Current Visit: Yes Status: Acute Plan to address problem: I have placed her back on a Friday hemodialysis schedule. We will try to optimize volume with aggressive fluid removal during dialysis. Will monitor closely. (2) Volume overload Current Visit: Yes Status: Acute Qualifiers: Hypervolemia type: unspecified Qualified Code(s): E87.70 - Fluid overload, unspecified Plan to address problem: I counseled patient on the importance of maintaining a euvolemic status especially in regards to making sure that she does not miss any dialysis treatments. Also counseled her on the importance of maintaining a low sodium diet. (3) Hypertensive chronic kidney disease with stage 5 chronic kidney disease or end stage renal disease Current Visit: No Status: Chronic Plan to address problem: continue monitoring blood pressures under current regimen. We will further optimize blood pressure control with optimizing her volume status. (4) Secondary hyperparathyroidism (of renal origin) Current Visit: No Status: Chronic Plan to address problem: can continue on her current outpatient phosphorus binder regimen. (5) Type 2 diabetes mellitus with chronic kidney disease Current Visit: No Status: Chronic Plan to address problem: diabetes management per primary attending. Subjective Date of service: 02/28/21 Interval history: Seen at HD today. No acute complaints. Remains on 3L O2 via NC. Plan for MRI of thoracic/lumbar spine today in order to assess for low back pain. Objective - Vital Signs Vital signs: Vital Signs - 12hr 02/28/21 02/28/21 02/28/21 05:31 07:41 09:22 Temperature 98.0 F Pulse Rate 67 67 67 Respiratory 18 Rate Blood Pressure 119/51 119/51 119/51 O2 Sat by Pulse 94 Oximetry - Lab 02/28/21 07:58 02/28/21 07:58 Most recent lab results Calcium 8.7 mg/dL (8.4-10.2) 02/28/21 07:58 Medications & Allergies - Medications Allergies/Adverse Reactions: Allergies No Known Allergies Allergy (Verified 02/22/16 23:57) Home Medications: Home Medications Medication Instructions Recorded Confirmed Last Taken Type Vit B12/Levomefolate/Vit B6/B2 1 each PO DAILY 08/26/18 02/28/21 Unknown History [Cerefolin Caplet] Aspirin [Aspirin BABY CHEW TAB] 81 mg PO QDAY #30 tab.chew 08/28/18 02/28/21 Unknown Rx AtorvaSTATin [Lipitor] 40 mg PO QHS #30 tablet 08/28/18 02/28/21 Unknown Rx Pantoprazole [Protonix TAB] 40 mg PO QDAY #30 tablet 08/28/18 02/28/21 Unknown Rx amLODIPine 10 mg PO QDAY #30 tablet 08/28/18 02/28/21 Unknown Rx methOCARBAMOL [Robaxin TAB] 500 mg PO Q8HR PRN #20 tablet 09/28/19 02/28/21 Unknown Rx Meclizine [Antivert] 25 mg PO TID PRN #20 tablet 10/02/20 02/28/21 Unknown Rx cloNIDine [Catapres] 0.1 mg PO BID PRN #20 tablet 02/28/21 Unknown Rx Active Medications: Generic Name Dose Route Start Last Admin Trade Name Freq PRN Reason Stop Dose Admin Acetaminophen 650 mg 02/27/21 05:56 Acetaminophen 325 Mg Tab PO Q4H PRN Pain MILD(1-3)/Fever >100.5/NARANJO Albuterol 2.5 mg 02/27/21 06:03 Albuterol 2.5 Mg/3 Ml Nebu IH Q4HRT PRN Shortness Of Breath Amlodipine Besylate 10 mg 02/27/21 10:00 02/28/21 09:22 Amlodipine 10 Mg Tab PO Not Given QDAY BRODERICK Aspirin 81 mg 02/27/21 10:00 02/28/21 09:22 Aspirin 81 Mg Tab Chew PO 81 mg QDAY BRODERICK Administration Atorvastatin Calcium 40 mg 02/27/21 22:00 02/27/21 21:03 Atorvastatin 40 Mg Tab PO 40 mg QHS BRODERICK Administration Clindamycin HCl 300 mg 02/27/21 06:00 02/28/21 05:27 Clindamycin 300 Mg Cap PO 03/03/21 22:01 300 mg Q8HR BRODERICK Administration Protocol Clonidine HCl 0.1 mg 02/27/21 15:00 02/28/21 07:41 Clonidine 0.1 Mg Tab PO Not Given Q8HR BRODERICK Dextrose 0 ml 02/27/21 06:23 Dextrose 50% In Water (25gm) 50 Ml Syringe IV Q30MIN PRN Hypoglycemia Protocol Famotidine 20 mg 02/27/21 10:00 02/28/21 09:21 Famotidine 20 Mg Tab PO 20 mg QAM BRODERICK Administration Heparin Sodium (Porcine) 5,000 unit 02/27/21 14:00 02/28/21 05:27 Heparin 5,000 Unit/1 Ml Vial SUB-Q 5,000 unit Q8HR BRODERICK Administration Hydralazine HCl 10 mg 02/27/21 06:07 02/27/21 12:33 Hydralazine 20 Mg/1 Ml Inj IV 10 mg Q6H PRN Administration htn Sodium Chloride 100 mls @ 999 mls/hr 02/28/21 09:00 Nacl 0.9% IV LUZMARIA PRN Hypotension Insulin Human Lispro 0 unit 02/27/21 07:30 02/28/21 07:50 Insulin Lispro 100 Unit/Ml SUB-Q Not Given ACHS [facility] Protocol Meclizine HCl 25 mg 02/27/21 05:55 Meclizine 25 Mg Tab PO TID PRN Vertigo Methocarbamol 500 mg 02/27/21 05:55 Methocarbamol 500 Mg Tab PO Q8H PRN Muscle Spasm Ondansetron HCl 4 mg 02/27/21 05:56 Ondansetron 4 Mg/2 Ml Inj IV Q8H PRN Nausea And Vomiting Pantoprazole Sodium 40 mg 02/27/21 10:00 02/28/21 09:21 Pantoprazole 40 Mg Tab PO 40 mg QDAY BRODERICK Administration Sodium Chloride 10 ml 02/27/21 10:00 02/28/21 09:52 Sodium Chloride 0.9% 10 Ml Flush Syringe IV 10 ml BID BRODERICK Administration Sodium Chloride 10 ml 02/27/21 05:56 Sodium Chloride 0.9% 10 Ml Flush Syringe IV PRN PRN LINE FLUSH
[2021-02-28] MEDS ORDERED: LORazepam 2 MG/ML VIAL IV PRN (16:17)
--- NOTE | 2021-02-28 17:00 | Magnetic Resonance Report ---
MRI THORACIC SPINE WITHOUT CONTRAST INDICATION / CLINICAL INFORMATION: Back pain. TECHNIQUE: Multisequence, multiplanar images of the thoracic spine were obtained. COMPARISON: None available. FINDINGS: Images are marred by motion related artifacts; best possible images are obtained; given 1 mg of Ativa n; uncontrollable involuntary leg movements ALIGNMENT: Normal thoracic kyphosis without significant scoliosis. VERTEBRAE:Normal marrow signal and vertebral body height for age. VISUALIZED SPINAL CORD: No significant abnormality. INTERVERTEBRAL DISCS: Disc heights are well preserved with desiccation DEGENERATIVE FINDINGS: No significant degenerative findings. PARASPINAL SOFT TISSUES: No significant abnormality. ADDITIONAL FINDINGS: None. IMPRESSION: Limited MRI scan due to motion related artifacts Central canal and the neuroforamina are normal Signer Name: Dennis Carver MD Signed: 02/28/2021 4:56 PM Workstation Name: [id number]
--- NOTE | 2021-02-28 17:05 | Magnetic Resonance Report ---
MRI LUMBAR SPINE WITHOUT CONTRAST INDICATION / CLINICAL INFORMATION: Back pain with leg weakness. TECHNIQUE: Multisequence, multiplanar images of the lumbar spine were obtained. Transverse images are marred by motion related artifacts COMPARISON: None FINDINGS: Lumbosacral junction L5-S1 ALIGNMENT: Normal lumbar lordosis without significant scoliosis. VERTEBRAE:Normal marrow signal and vertebral body height for age. VISUALIZED SPINAL CORD: No significant abnormality. Conus ends at L1 vertebral body level [id number] ANALYSIS: T12-L1: Normal L1-2: No significant abnormality. L2-3: No significant abnormality. L3-4: Lateral bulging disc bilaterally but more towards the left side; exiting third root is mildly d isplaced L4-5: Lateral bulging disc bilaterally; neuroforamina are normal L5-S1: Bulging disc; neuroforamina are normal PARASPINAL SOFT TISSUES: No significant abnormality. ADDITIONAL FINDINGS: None. IMPRESSION: No focal disc herniation, spinal canal stenosis or nerve root compression. L3-L4: Lateral bulging disc bilaterally, more towards the left side L4-L5: Lateral bulging disc bilaterally Signer Name: Dennis Carver MD Signed: 02/28/2021 5:00 PM Workstation Name: [id number]
--- NOTE | 2021-02-28 22:20 | Cat Scan Report ---
CT head/brain wo con INDICATION / CLINICAL INFORMATION: fall. TECHNIQUE: All CT scans at this location are performed using CT dose reduction for ALARA by means of automated e xposure control. COMPARISON: 10/02/2020 FINDINGS: Ventricle size is mildly enlarged and extensive microangiopathic changes are seen bilaterally. No mas s or mass effect is identified. There is no evidence of intracranial hemorrhage. No obvious area of i nfarction is identified. No fracture is present. Mild mucosal thickening is seen in the visualized po rtions of the maxillary sinuses. IMPRESSION: 1. Mild changes of atrophy with extensive microangiopathic changes bilaterally. These findings are si milar to those seen on 10/02/2020. 2. No definite acute findings Signer Name: Jf Duvall MD FACR Signed: 02/28/2021 10:15 PM Workstation Name: [id number]
[2021-03-01] MEDS: cloNIDine 0.1 MG TAB PO SCH ×3 (06:40→22:00)
[2021-03-01] MEDS: HEPARIN 5,000 UNIT/1 ML VIAL SUB-Q SCH ×3 (06:40→21:59)
[2021-03-01] MEDS: CLINDAMYCIN 300 MG CAP PO SCH ×3 (06:40→21:57)
--- NOTE | 2021-03-01 09:14 | Progress Note ---
Assessment and Plan Assessment and plan: (1) Dyspnea Due to fluid overload. Resolved (2) ESRD needing dialysis Current Visit: Yes Status: Acute Plan to address problem: HD as scheduled (3) Hypertensive urgency, malignant Current Visit: Yes Status: Acute Plan to address problem: Continue home medications Will dc on clonidine as needed (4) Acute hyperglycemia Current Visit: No Status: Acute Plan to address problem: We will put the patient on 1800 kcal ADA diet. We also put the patient on insulin sliding scale. CBC BMP in the morning (5) CVA (cerebral vascular accident) Current Visit: No Status: Acute Qualifiers: CVA mechanism: unspecified Qualified Code(s): I63.9 - Cerebral infarction, unspecified Plan to address problem: Stable. We will continue the aspirin 81 mg p.o. daily and Lipitor 40 mg p.o. nightly. Patient will follow up with neurologist as outpatient (6) DVT prophylaxis Current Visit: No Status: Acute Plan to address problem: Heparin 5000 units subcu every 8 hours for DVT prophylaxis. Protonix 40 mg p.o. daily for GI prophylaxis. Patient is a full code - Patient Problems (1) ESRD needing dialysis Current Visit: Yes Status: Acute History Interval history: Pt seen Has back pain MRI ordered Hospitalist Physical - Constitutional Vitals: Temp Pulse Resp BP Pulse Ox 98.8 F 60 18 131/62 97 03/01/21 05:26 03/01/21 06:36 03/01/21 06:36 03/01/21 06:36 03/01/21 06:36 General appearance: Present: no acute distress, well-nourished - EENT Eyes: Present: PERRL - Neck Neck: Present: supple - Respiratory Respiratory: bilateral: CTA - Cardiovascular Heart Sounds: Present: S1 & S2 - Extremities Extremities: No edema - Abdominal General gastrointestinal: soft, non-tender, non-distended, normal bowel sounds - Psychiatric Psychiatric: appropriate mood/affect - Neurologic Neurologic: other (AAO x3 ) Results - Labs CBC & Chem 7: 02/28/21 07:58 02/28/21 07:58 Labs: Laboratory Last Values WBC 8.5 K/mm3 (4.5-11.0) 02/28/21 07:58 RBC 3.91 M/mm3 (3.65-5.03) 02/28/21 07:58 Hgb 11.1 gm/dl (10.1-14.3) 02/28/21 07:58 Hct 34.6 % (30.3-42.9) 02/28/21 07:58 MCV 88 fl (79-97) 02/28/21 07:58 MCH 29 pg (28-32) 02/28/21 07:58 MCHC 32 % (30-34) 02/28/21 07:58 RDW 19.1 % (13.2-15.2) H 02/28/21 07:58 Plt Count 168 K/mm3 (140-440) 02/28/21 07:58 Lymph % (Auto) 22.4 % (13.4-35.0) 02/28/21 07:58 Geary % (Auto) 9.5 % (0.0-7.3) H 02/28/21 07:58 Eos % (Auto) 2.7 % (0.0-4.3) 02/28/21 07:58 Baso % (Auto) 1.1 % (0.0-1.8) 02/28/21 07:58 Lymph # (Auto) 1.9 K/mm3 (1.2-5.4) 02/28/21 07:58 Geary # (Auto) 0.8 K/mm3 (0.0-0.8) 02/28/21 07:58 Eos # (Auto) 0.2 K/mm3 (0.0-0.4) 02/28/21 07:58 Baso # (Auto) 0.1 K/mm3 (0.0-0.1) 02/28/21 07:58 Seg Neutrophils % 64.3 % (40.0-70.0) 02/28/21 07:58 Seg Neutrophils # 5.5 K/mm3 (1.8-7.7) 02/28/21 07:58 PT 12.3 Sec. (12.2-14.9) 02/27/21 04:15 INR 0.93 (0.87-1.13) 02/27/21 04:15 Sodium 136 mmol/L (137-145) L 02/28/21 07:58 Potassium 3.9 mmol/L (3.6-5.0) 02/28/21 07:58 Chloride 94.1 mmol/L (98-107) L 02/28/21 07:58 Carbon Dioxide 32 mmol/L (22-30) H D 02/28/21 07:58 Anion Gap 14 mmol/L 02/28/21 07:58 BUN 31 mg/dL (7-17) H 02/28/21 07:58 Creatinine 8.5 mg/dL (0.6-1.2) H 02/28/21 07:58 Estimated GFR 6 ml/min 02/28/21 07:58 BUN/Creatinine Ratio 4 % 02/28/21 07:58 Glucose 139 mg/dL (65-100) H 02/28/21 07:58 POC Glucose 156 mg/dL (70-105) H 02/28/21 19:52 Calcium 8.7 mg/dL (8.4-10.2) 02/28/21 07:58 Total Bilirubin 0.40 mg/dL (0.1-1.2) 02/27/21 04:15 AST 21 units/L (5-40) 02/27/21 04:15 ALT 20 units/L (7-56) 02/27/21 04:15 Alkaline Phosphatase 101 units/L (35-129) 02/27/21 04:15 NT-Pro-B Natriuret Pep 38283 pg/mL (0-900) H 02/27/21 04:15 Total Protein 7.4 g/dL (6.3-8.2) 02/27/21 04:15 Albumin 4.1 g/dL (3.9-5) 02/27/21 04:15 Albumin/Globulin Ratio 1.2 % 02/27/21 04:15 Hepatitis A IgM Ab Non-reactive (NonReactive) 02/27/21 11:20 Hep Bs Antigen Non-reactive (Negative) 02/27/21 11:20 Hep B Core IgM Ab Non-reactive (NonReactive) 02/27/21 11:20 Hepatitis C Antibody Non-reactive (NonReactive) 02/27/21 11:20 Ramon/IV: Voiding Method Bedside Commode Active Medications - Current Medications Current Medications: Generic Name Dose Route Start Last Admin Trade Name Freq PRN Reason Stop Dose Admin Acetaminophen 650 mg 02/27/21 05:56 Acetaminophen 325 Mg Tab PO Q4H PRN Pain MILD(1-3)/Fever >100.5/NARANJO Albuterol 2.5 mg 02/27/21 06:03 Albuterol 2.5 Mg/3 Ml Nebu IH Q4HRT PRN Shortness Of Breath Amlodipine Besylate 10 mg 02/27/21 10:00 02/28/21 09:22 Amlodipine 10 Mg Tab PO Not Given QDAY BRODERICK Aspirin 81 mg 02/27/21 10:00 02/28/21 09:22 Aspirin 81 Mg Tab Chew PO 81 mg QDAY BRODERICK Administration Atorvastatin Calcium 40 mg 02/27/21 22:00 02/28/21 23:37 Atorvastatin 40 Mg Tab PO 40 mg QHS BRODERICK Administration Clindamycin HCl 300 mg 02/27/21 06:00 03/01/21 06:40 Clindamycin 300 Mg Cap PO 03/03/21 22:01 300 mg Q8HR BRODERICK Administration Protocol Clonidine HCl 0.1 mg 02/27/21 15:00 03/01/21 06:40 Clonidine 0.1 Mg Tab PO 0.1 mg Q8HR BRODERICK Administration Dextrose 0 ml 02/27/21 06:23 Dextrose 50% In Water (25gm) 50 Ml Syringe IV Q30MIN PRN Hypoglycemia Protocol Famotidine 20 mg 02/27/21 10:00 02/28/21 09:21 Famotidine 20 Mg Tab PO 20 mg QAM BRODERICK Administration Heparin Sodium (Porcine) 5,000 unit 02/27/21 14:00 03/01/21 06:40 Heparin 5,000 Unit/1 Ml Vial SUB-Q 5,000 unit Q8HR BRODERICK Administration Hydralazine HCl 10 mg 02/27/21 06:07 02/27/21 12:33 Hydralazine 20 Mg/1 Ml Inj IV 10 mg Q6H PRN Administration htn Sodium Chloride 100 mls @ 999 mls/hr 02/28/21 09:00 Nacl 0.9% IV LUZMARIA PRN Hypotension Insulin Human Lispro 0 unit 02/27/21 07:30 02/28/21 23:37 Insulin Lispro 100 Unit/Ml SUB-Q 1 unit ACHS BRODERICK Administration Protocol Lorazepam 2 mg 02/28/21 16:17 02/28/21 16:17 Lorazepam 2 Mg/Ml Vial IV 2 mg Q6H PRN Administration Agitation Meclizine HCl 25 mg 02/27/21 05:55 Meclizine 25 Mg Tab PO TID PRN Vertigo Methocarbamol 500 mg 02/27/21 05:55 Methocarbamol 500 Mg Tab PO Q8H PRN Muscle Spasm Ondansetron HCl 4 mg 02/27/21 05:56 Ondansetron 4 Mg/2 Ml Inj IV Q8H PRN Nausea And Vomiting Pantoprazole Sodium 40 mg 02/27/21 10:00 02/28/21 09:21 Pantoprazole 40 Mg Tab PO 40 mg QDAY BRODERICK Administration Sodium Chloride 10 ml 02/27/21 10:00 02/28/21 23:38 Sodium Chloride 0.9% 10 Ml Flush Syringe IV 10 ml BID BRODERICK Administration Sodium Chloride 10 ml 02/27/21 05:56 Sodium Chloride 0.9% 10 Ml Flush Syringe IV PRN PRN LINE FLUSH Nutrition/Malnutrition Assess - Dietary Evaluation Nutrition/Malnutrition Findings: Nutrition Notes Start: 02/27/21 10:36 Freq: Status: Active Protocol: Document 02/27/21 10:37 KAJAL (Rec: 02/27/21 10:47 KAJAL [id number]) Nutrition Notes Need for Assessment generated from: MD Order,Education Initial or Follow up Brief Note Current Diagnosis CKD (stage V CKD),Diabetes, Hypertension,Stroke, Hyperlipidemia Other Pertinent Diagnosis Dyspnea, Resp distress, Hypertensive urgency Current Diet Consistent CHO/Renal Labs/Tests BUN 61 Cr 11.4 BG 184 BNP 57245 Pertinent Medications Reviewed Height 5 ft 6 in Weight 63.2 kg [place] Body Weight (kg) 59.09 BMI 22.4 Weight Status Appropriate Subjective/Other Information RD consulted for diet education. Per records, pt missed her last HD sec to transportation issues. Burn Absent Trauma Absent Minimum of two criteria No Is patient on ventilator? No Is Patient Ambulatory and/or Out of Bed Yes REE-([facility]-ambulatory/OOB) [ 1532.375 NUTR.[id number]] Calculation Used for Recommendations [facility] Additional Notes Pro needs >1.2g/kg: >76g/day Fluid needs 1-1.5L/day Nutrition Intervention Anticipated Discharge Needs: Renal/CHO-controlled diet Follow-Up By: 03/04/21 Additional Comments F/U: diet education needs, intakes, BP
[2021-03-01] MEDS: FAMOTIDINE 20 MG TAB PO SCH (09:28)
[2021-03-01] MEDS: PANTOPRAZOLE 40 MG TAB PO SCH (09:28)
[2021-03-01] MEDS: INSULIN LISPRO 100 UNIT/ML SUB-Q SCH ×4 (09:28→23:43)
[2021-03-01] MEDS: amLODIPine 10 MG TAB PO SCH (09:28)
[2021-03-01] MEDS: ASPIRIN 81 MG TAB CHEW PO SCH (09:28)
--- NOTE | 2021-03-01 10:03 | Progress Note ---
Assessment and Plan - Patient Problems (1) ESRD needing dialysis Current Visit: Yes Status: Acute Plan to address problem: I have placed her back on a Friday hemodialysis schedule. We will try to optimize volume with aggressive fluid removal during dialysis. Will monitor closely. (2) Volume overload Current Visit: Yes Status: Acute Qualifiers: Hypervolemia type: unspecified Qualified Code(s): E87.70 - Fluid overload, unspecified Plan to address problem: I counseled patient on the importance of maintaining a euvolemic status especially in regards to making sure that she does not miss any dialysis treatments. Also counseled her on the importance of maintaining a low sodium diet. (3) Hypertensive chronic kidney disease with stage 5 chronic kidney disease or end stage renal disease Current Visit: No Status: Chronic Plan to address problem: continue monitoring blood pressures under current regimen. We will further optimize blood pressure control with optimizing her volume status. (4) Secondary hyperparathyroidism (of renal origin) Current Visit: No Status: Chronic Plan to address problem: can continue on her current outpatient phosphorus binder regimen. (5) Type 2 diabetes mellitus with chronic kidney disease Current Visit: No Status: Chronic Plan to address problem: diabetes management per primary attending. Subjective Date of service: 03/01/21 Interval history: had a fall last night, and was noted to be more confused and altered. Placed in restraints overnight. CT head done without any acute abnormalities. Did have issue with hypotension during dialysis that led to cutting treatment short. Seems more alert this am but still fatigued. Discussed case with RN and after assessment hopeful that we can remove restraints. Objective - Vital Signs Vital signs: Vital Signs - 12hr 02/28/21 03/01/21 03/01/21 23:34 01:12 05:26 Temperature 98.8 F Pulse Rate 64 61 67 Respiratory 18 18 18 Rate Blood Pressure 184/70 132/66 145/67 O2 Sat by Pulse 97 98 99 Oximetry 03/01/21 03/01/21 06:36 09:28 Temperature Pulse Rate 60 Respiratory 18 Rate Blood Pressure 131/62 131/62 O2 Sat by Pulse 97 Oximetry - General Appearance General appearance: appears stated age EENT: ATNC Neck: no JVD Respiratory: Present: Clear to Ascultation Cardiology: regular Gastrointestinal: normal Integumentary: no rash Neurologic: no focal deficit Musculoskeletal: deferred Psychiatric: cooperative - Lab 02/28/21 07:58 04/07/21 07:58 Most recent lab results Calcium 8.7 mg/dL (8.4-10.2) 02/28/21 07:58 - Imaging Other: report reviewed (CT head ) - Allied health notes Allied health notes reviewed: nursing Medications & Allergies - Medications Allergies/Adverse Reactions: Allergies No Known Allergies Allergy (Verified 02/22/16 23:57) Home Medications: Home Medications Medication Instructions Recorded Confirmed Last Taken Type Vit B12/Levomefolate/Vit B6/B2 1 each PO DAILY 08/26/18 02/28/21 Unknown History [Cerefolin Caplet] Aspirin [Aspirin BABY CHEW TAB] 81 mg PO QDAY #30 tab.chew 08/28/18 02/28/21 Unknown Rx AtorvaSTATin [Lipitor] 40 mg PO QHS #30 tablet 08/28/18 02/28/21 Unknown Rx Pantoprazole [Protonix TAB] 40 mg PO QDAY #30 tablet 08/28/18 02/28/21 Unknown Rx amLODIPine 10 mg PO QDAY #30 tablet 08/28/18 02/28/21 Unknown Rx methOCARBAMOL [Robaxin TAB] 500 mg PO Q8HR PRN #20 tablet 09/28/19 02/28/21 Unknown Rx Meclizine [Antivert] 25 mg PO TID PRN #20 tablet 10/02/20 02/28/21 Unknown Rx cloNIDine [Catapres] 0.1 mg PO BID PRN #20 tablet 02/28/21 Unknown Rx Active Medications: Generic Name Dose Route Start Last Admin Trade Name Freq PRN Reason Stop Dose Admin Acetaminophen 650 mg 02/27/21 05:56 Acetaminophen 325 Mg Tab PO Q4H PRN Pain MILD(1-3)/Fever >100.5/NARANJO Albuterol 2.5 mg 02/27/21 06:03 Albuterol 2.5 Mg/3 Ml Nebu IH Q4HRT PRN Shortness Of Breath Amlodipine Besylate 10 mg 02/27/21 10:00 03/01/21 09:28 Amlodipine 10 Mg Tab PO 10 mg QDAY BRODERICK Administration Aspirin 81 mg 02/27/21 10:00 03/01/21 09:28 Aspirin 81 Mg Tab Chew PO 81 mg QDAY BRODERICK Administration Atorvastatin Calcium 40 mg 02/27/21 22:00 02/28/21 23:37 Atorvastatin 40 Mg Tab PO 40 mg QHS BRODERICK Administration Clindamycin HCl 300 mg 02/27/21 06:00 03/01/21 06:40 Clindamycin 300 Mg Cap PO 03/03/21 22:01 300 mg Q8HR BRODERICK Administration Protocol Clonidine HCl 0.1 mg 02/27/21 15:00 03/01/21 06:40 Clonidine 0.1 Mg Tab PO 0.1 mg Q8HR BRODERICK Administration Dextrose 0 ml 02/27/21 06:23 Dextrose 50% In Water (25gm) 50 Ml Syringe IV Q30MIN PRN Hypoglycemia Protocol Famotidine 20 mg 02/27/21 10:00 03/01/21 09:28 Famotidine 20 Mg Tab PO 20 mg QAM BRODERICK Administration Heparin Sodium (Porcine) 5,000 unit 02/27/21 14:00 03/01/21 06:40 Heparin 5,000 Unit/1 Ml Vial SUB-Q 5,000 unit Q8HR BRODERICK Administration Hydralazine HCl 10 mg 02/27/21 06:07 02/27/21 12:33 Hydralazine 20 Mg/1 Ml Inj IV 10 mg Q6H PRN Administration htn Sodium Chloride 100 mls @ 999 mls/hr 02/28/21 09:00 Nacl 0.9% IV LUZMARIA PRN Hypotension Insulin Human Lispro 0 unit 02/27/21 07:30 03/01/21 09:28 Insulin Lispro 100 Unit/Ml SUB-Q 1 unit ACHS BRODERICK Administration Protocol Lorazepam 2 mg 02/28/21 16:17 02/28/21 16:17 Lorazepam 2 Mg/Ml Vial IV 2 mg Q6H PRN Administration Agitation Meclizine HCl 25 mg 02/27/21 05:55 Meclizine 25 Mg Tab PO TID PRN Vertigo Methocarbamol 500 mg 02/27/21 05:55 Methocarbamol 500 Mg Tab PO Q8H PRN Muscle Spasm Ondansetron HCl 4 mg 02/27/21 05:56 Ondansetron 4 Mg/2 Ml Inj IV Q8H PRN Nausea And Vomiting Pantoprazole Sodium 40 mg 02/27/21 10:00 03/01/21 09:28 Pantoprazole 40 Mg Tab PO 40 mg QDAY BRODERICK Administration Sodium Chloride 10 ml 02/27/21 10:00 03/01/21 09:29 Sodium Chloride 0.9% 10 Ml Flush Syringe IV 10 ml BID BRODERICK Administration Sodium Chloride 10 ml 02/27/21 05:56 Sodium Chloride 0.9% 10 Ml Flush Syringe IV PRN PRN LINE FLUSH
[2021-03-02] MEDS: HEPARIN 5,000 UNIT/1 ML VIAL SUB-Q SCH ×2 (05:42→17:25)
[2021-03-02] MEDS: CLINDAMYCIN 300 MG CAP PO SCH ×2 (05:42→17:25)
[2021-03-02] MEDS: cloNIDine 0.1 MG TAB PO SCH ×2 (05:43→17:25)
--- NOTE | 2021-03-02 07:19 | Progress Note ---
Assessment and Plan - Patient Problems (1) ESRD needing dialysis Current Visit: Yes Status: Acute Plan to address problem: I have placed her back on a Friday hemodialysis schedule. We will try to optimize volume with aggressive fluid removal during dialysis. Will monitor closely. (2) Volume overload Current Visit: Yes Status: Acute Qualifiers: Hypervolemia type: unspecified Qualified Code(s): E87.70 - Fluid overload, unspecified Plan to address problem: I counseled patient on the importance of maintaining a euvolemic status especially in regards to making sure that she does not miss any dialysis treatments. Also counseled her on the importance of maintaining a low sodium diet. (3) Hypertensive chronic kidney disease with stage 5 chronic kidney disease or end stage renal disease Current Visit: No Status: Chronic Plan to address problem: continue monitoring blood pressures under current regimen. We will further optimize blood pressure control with optimizing her volume status. (4) Secondary hyperparathyroidism (of renal origin) Current Visit: No Status: Chronic Plan to address problem: can continue on her current outpatient phosphorus binder regimen. (5) Type 2 diabetes mellitus with chronic kidney disease Current Visit: No Status: Chronic Plan to address problem: diabetes management per primary attending. Subjective Date of service: 03/02/21 Interval history: Resting comfortably this am. No acute issues. Plan for HD today. Objective - Vital Signs Vital signs: Vital Signs - 12hr 03/01/21 03/01/21 03/01/21 20:54 21:29 21:30 Temperature Pulse Rate 61 59 L Respiratory 16 Rate Blood Pressure 110/50 110/50 O2 Sat by Pulse 96 99 99 Oximetry 03/01/21 03/01/21 03/02/21 22:00 22:18 04:53 Temperature 97.7 F 98.6 F Pulse Rate 61 59 L 59 L Respiratory 14 14 Rate Blood Pressure 110/50 123/54 131/58 O2 Sat by Pulse 96 96 Oximetry 03/02/21 05:43 Temperature Pulse Rate 59 L Respiratory Rate Blood Pressure 131/58 O2 Sat by Pulse Oximetry - General Appearance General appearance: appears stated age EENT: ATNC Neck: no JVD Respiratory: Present: Clear to Ascultation Cardiology: regular Gastrointestinal: normal Integumentary: no rash Neurologic: no focal deficit Musculoskeletal: deferred Psychiatric: cooperative - Lab 02/28/21 07:58 02/28/21 07:58 Most recent lab results Calcium 8.7 mg/dL (8.4-10.2) 02/28/21 07:58 - Allied health notes Allied health notes reviewed: nursing Medications & Allergies - Medications Allergies/Adverse Reactions: Allergies No Known Allergies Allergy (Verified 02/22/16 23:57) Home Medications: Home Medications Medication Instructions Recorded Confirmed Last Taken Type Vit B12/Levomefolate/Vit B6/B2 1 each PO DAILY 08/26/18 02/28/21 Unknown History [Cerefolin Caplet] Aspirin [Aspirin BABY CHEW TAB] 81 mg PO QDAY #30 tab.chew 08/28/18 02/28/21 Unknown Rx AtorvaSTATin [Lipitor] 40 mg PO QHS #30 tablet 08/28/18 02/28/21 Unknown Rx Pantoprazole [Protonix TAB] 40 mg PO QDAY #30 tablet 08/28/18 02/28/21 Unknown Rx amLODIPine 10 mg PO QDAY #30 tablet 08/28/18 02/28/21 Unknown Rx methOCARBAMOL [Robaxin TAB] 500 mg PO Q8HR PRN #20 tablet 09/28/19 02/28/21 Unknown Rx Meclizine [Antivert] 25 mg PO TID PRN #20 tablet 10/02/20 02/28/21 Unknown Rx cloNIDine [Catapres] 0.1 mg PO BID PRN #20 tablet 02/28/21 Unknown Rx Active Medications: Generic Name Dose Route Start Last Admin Trade Name Freq PRN Reason Stop Dose Admin Acetaminophen 650 mg 02/27/21 05:56 Acetaminophen 325 Mg Tab PO Q4H PRN Pain MILD(1-3)/Fever >100.5/NARANJO Albuterol 2.5 mg 02/27/21 06:03 Albuterol 2.5 Mg/3 Ml Nebu IH Q4HRT PRN Shortness Of Breath Amlodipine Besylate 10 mg 02/27/21 10:00 03/01/21 09:28 Amlodipine 10 Mg Tab PO 10 mg QDAY BRODERICK Administration Aspirin 81 mg 02/27/21 10:00 03/01/21 09:28 Aspirin 81 Mg Tab Chew PO 81 mg QDAY BRODERICK Administration Atorvastatin Calcium 40 mg 02/27/21 22:00 03/01/21 21:57 Atorvastatin 40 Mg Tab PO 40 mg QHS BRODERICK Administration Clindamycin HCl 300 mg 02/27/21 06:00 03/02/21 05:42 Clindamycin 300 Mg Cap PO 03/03/21 22:01 300 mg Q8HR BRODERICK Administration Protocol Clonidine HCl 0.1 mg 02/27/21 15:00 03/02/21 05:43 Clonidine 0.1 Mg Tab PO 0.1 mg Q8HR BRODERICK Administration Dextrose 0 ml 02/27/21 06:23 Dextrose 50% In Water (25gm) 50 Ml Syringe IV Q30MIN PRN Hypoglycemia Protocol Famotidine 20 mg 02/27/21 10:00 03/01/21 09:28 Famotidine 20 Mg Tab PO 20 mg QAM BRODERICK Administration Heparin Sodium (Porcine) 5,000 unit 02/27/21 14:00 03/02/21 05:42 Heparin 5,000 Unit/1 Ml Vial SUB-Q 5,000 unit Q8HR BRODERICK Administration Hydralazine HCl 10 mg 02/27/21 06:07 02/27/21 12:33 Hydralazine 20 Mg/1 Ml Inj IV 10 mg Q6H PRN Administration htn Sodium Chloride 100 mls @ 999 mls/hr 02/28/21 09:00 Nacl 0.9% IV LUZMARIA PRN Hypotension Insulin Human Lispro 0 unit 02/27/21 07:30 03/01/21 23:43 Insulin Lispro 100 Unit/Ml SUB-Q Not Given ACHS [facility] Protocol Lorazepam 2 mg 02/28/21 16:17 02/28/21 16:17 Lorazepam 2 Mg/Ml Vial IV 2 mg Q6H PRN Administration Agitation Meclizine HCl 25 mg 02/27/21 05:55 Meclizine 25 Mg Tab PO TID PRN Vertigo Methocarbamol 500 mg 02/27/21 05:55 Methocarbamol 500 Mg Tab PO Q8H PRN Muscle Spasm Ondansetron HCl 4 mg 02/27/21 05:56 Ondansetron 4 Mg/2 Ml Inj IV Q8H PRN Nausea And Vomiting Pantoprazole Sodium 40 mg 02/27/21 10:00 03/01/21 09:28 Pantoprazole 40 Mg Tab PO 40 mg QDAY BRODERICK Administration Sodium Chloride 10 ml 02/27/21 10:00 03/01/21 22:01 Sodium Chloride 0.9% 10 Ml Flush Syringe IV 10 ml BID BRODERICK Administration Sodium Chloride 10 ml 02/27/21 05:56 Sodium Chloride 0.9% 10 Ml Flush Syringe IV PRN PRN LINE FLUSH
--- NOTE | 2021-03-02 10:44 | Progress Note ---
Assessment and Plan Assessment and plan: (1) Dyspnea Due to fluid overload. Resolved (2) ESRD needing dialysis Current Visit: Yes Status: Acute Plan to address problem: HD as scheduled (3) Hypertensive urgency, malignant Current Visit: Yes Status: Acute Plan to address problem: Continue home medications (4) Acute hyperglycemia Current Visit: No Status: Acute Plan to address problem: We will put the patient on 1800 kcal ADA diet. We also put the patient on insulin sliding scale. CBC BMP in the morning (5) CVA (cerebral vascular accident) Current Visit: No Status: Acute Qualifiers: CVA mechanism: unspecified Qualified Code(s): I63.9 - Cerebral infarction, unspecified Plan to address problem: Stable. We will continue the aspirin 81 mg p.o. daily and Lipitor 40 mg p.o. nightly. Patient will follow up with neurologist as outpatient (6) DVT prophylaxis Current Visit: No Status: Acute Plan to address problem: Heparin 5000 units subcu every 8 hours for DVT prophylaxis. Protonix 40 mg p.o. daily for GI prophylaxis. Patient is a full code - Patient Problems (1) ESRD needing dialysis Current Visit: Yes Status: Acute History Interval history: 03/01. PT recommends rehab. MRI lumbar and thoracic negative for acute pathology Hospitalist Physical - Physical exam Narrative exam: Patient VITAL SIGNS: Reviewed. GENERAL: Awake HEAD: No signs of head trauma. EYES: Pupils are equal. Extraocular motions intact. MOUTH: Oropharynx is normal. NECK: No adenopathy, no JVD. CHEST: Chest with diminished breath sounds bilaterally. No wheezes, rales, or rhonchi. CARDIAC: normal S1 and S2, without murmurs, gallops, or rubs. ABDOMEN: Soft, non tender and non distended. No rebound or guarding, and no masses palpated. Bowel Sounds normal. MUSCULOSKELETAL: No edema NEUROLOGIC EXAM: Alert and oriented x3. No focal neurologic deficits SKIN: No obvious lesions - Constitutional Vitals: Temp Pulse Resp BP Pulse Ox 98.6 F 59 L 14 131/58 96 03/02/21 04:53 03/02/21 05:43 03/02/21 04:53 03/02/21 05:43 03/02/21 04:53 Results - Labs CBC & Chem 7: 02/28/21 07:58 02/28/21 07:58 Labs: Laboratory Last Values WBC 8.5 K/mm3 (4.5-11.0) 02/28/21 07:58 RBC 3.91 M/mm3 (3.65-5.03) 02/28/21 07:58 Hgb 11.1 gm/dl (10.1-14.3) 02/28/21 07:58 Hct 34.6 % (30.3-42.9) 02/28/21 07:58 MCV 88 fl (79-97) 02/28/21 07:58 MCH 29 pg (28-32) 02/28/21 07:58 MCHC 32 % (30-34) 02/28/21 07:58 RDW 19.1 % (13.2-15.2) H 02/28/21 07:58 Plt Count 168 K/mm3 (140-440) 02/28/21 07:58 Lymph % (Auto) 22.4 % (13.4-35.0) 02/28/21 07:58 [place] % (Auto) 9.5 % (0.0-7.3) H 02/28/21 07:58 Eos % (Auto) 2.7 % (0.0-4.3) 02/28/21 07:58 Baso % (Auto) 1.1 % (0.0-1.8) 02/28/21 07:58 Lymph # (Auto) 1.9 K/mm3 (1.2-5.4) 02/28/21 07:58 [place] # (Auto) 0.8 K/mm3 (0.0-0.8) 02/28/21 07:58 Eos # (Auto) 0.2 K/mm3 (0.0-0.4) 02/28/21 07:58 Baso # (Auto) 0.1 K/mm3 (0.0-0.1) 02/28/21 07:58 Seg Neutrophils % 64.3 % (40.0-70.0) 02/28/21 07:58 Seg Neutrophils # 5.5 K/mm3 (1.8-7.7) 02/28/21 07:58 PT 12.3 Sec. (12.2-14.9) 02/27/21 04:15 INR 0.93 (0.87-1.13) 02/27/21 04:15 Sodium 136 mmol/L (137-145) L 02/28/21 07:58 Potassium 3.9 mmol/L (3.6-5.0) 02/28/21 07:58 Chloride 94.1 mmol/L (98-107) L 02/28/21 07:58 Carbon Dioxide 32 mmol/L (22-30) H D 02/28/21 07:58 Anion Gap 14 mmol/L 02/28/21 07:58 BUN 31 mg/dL (7-17) H 02/28/21 07:58 Creatinine 8.5 mg/dL (0.6-1.2) H 02/28/21 07:58 Estimated GFR 6 ml/min 02/28/21 07:58 BUN/Creatinine Ratio 4 % 02/28/21 07:58 Glucose 139 mg/dL (65-100) H 02/28/21 07:58 POC Glucose 127 mg/dL (70-105) H 03/01/21 23:18 Calcium 8.7 mg/dL (8.4-10.2) 02/28/21 07:58 Total Bilirubin 0.40 mg/dL (0.1-1.2) 02/27/21 04:15 AST 21 units/L (5-40) 02/27/21 04:15 ALT 20 units/L (7-56) 02/27/21 04:15 Alkaline Phosphatase 101 units/L (35-129) 02/27/21 04:15 NT-Pro-B Natriuret Pep 22195 pg/mL (0-900) H 02/27/21 04:15 Total Protein 7.4 g/dL (6.3-8.2) 02/27/21 04:15 Albumin 4.1 g/dL (3.9-5) 02/27/21 04:15 Albumin/Globulin Ratio 1.2 % 02/27/21 04:15 Hepatitis A IgM Ab Non-reactive (NonReactive) 02/27/21 11:20 Hep Bs Antigen Non-reactive (Negative) 02/27/21 11:20 Hep B Core IgM Ab Non-reactive (NonReactive) 02/27/21 11:20 Hepatitis C Antibody Non-reactive (NonReactive) 02/27/21 11:20 Ramon/IV: Voiding Method Bedside Commode Active Medications - Current Medications Current Medications: Generic Name Dose Route Start Last Admin Trade Name Freq PRN Reason Stop Dose Admin Acetaminophen 650 mg 02/27/21 05:56 Acetaminophen 325 Mg Tab PO Q4H PRN Pain MILD(1-3)/Fever >100.5/NARANJO Albuterol 2.5 mg 02/27/21 06:03 Albuterol 2.5 Mg/3 Ml Nebu IH Q4HRT PRN Shortness Of Breath Amlodipine Besylate 10 mg 02/27/21 10:00 03/01/21 09:28 Amlodipine 10 Mg Tab PO 10 mg QDAY BRODERICK Administration Aspirin 81 mg 02/27/21 10:00 03/01/21 09:28 Aspirin 81 Mg Tab Chew PO 81 mg QDAY BRODERICK Administration Atorvastatin Calcium 40 mg 02/27/21 22:00 03/01/21 21:57 Atorvastatin 40 Mg Tab PO 40 mg QHS BRODERICK Administration Clindamycin HCl 300 mg 02/27/21 06:00 03/02/21 05:42 Clindamycin 300 Mg Cap PO 03/03/21 22:01 300 mg Q8HR BRODERICK Administration Protocol Clonidine HCl 0.1 mg 02/27/21 15:00 03/02/21 05:43 Clonidine 0.1 Mg Tab PO 0.1 mg Q8HR BRODERICK Administration Dextrose 0 ml 02/27/21 06:23 Dextrose 50% In Water (25gm) 50 Ml Syringe IV Q30MIN PRN Hypoglycemia Protocol Famotidine 20 mg 02/27/21 10:00 03/01/21 09:28 Famotidine 20 Mg Tab PO 20 mg QAM BRODERICK Administration Heparin Sodium (Porcine) 5,000 unit 02/27/21 14:00 03/02/21 05:42 Heparin 5,000 Unit/1 Ml Vial SUB-Q 5,000 unit Q8HR BRODERICK Administration Hydralazine HCl 10 mg 02/27/21 06:07 02/27/21 12:33 Hydralazine 20 Mg/1 Ml Inj IV 10 mg Q6H PRN Administration htn Sodium Chloride 100 mls @ 999 mls/hr 02/28/21 09:00 Nacl 0.9% IV LUZMARIA PRN Hypotension Insulin Human Lispro 0 unit 02/27/21 07:30 03/01/21 23:43 Insulin Lispro 100 Unit/Ml SUB-Q Not Given ACHS BRODERICK Protocol Lorazepam 2 mg 02/28/21 16:17 02/28/21 16:17 Lorazepam 2 Mg/Ml Vial IV 2 mg Q6H PRN Administration Agitation Meclizine HCl 25 mg 02/27/21 05:55 Meclizine 25 Mg Tab PO TID PRN Vertigo Methocarbamol 500 mg 02/27/21 05:55 Methocarbamol 500 Mg Tab PO Q8H PRN Muscle Spasm Ondansetron HCl 4 mg 02/27/21 05:56 Ondansetron 4 Mg/2 Ml Inj IV Q8H PRN Nausea And Vomiting Pantoprazole Sodium 40 mg 02/27/21 10:00 03/01/21 09:28 Pantoprazole 40 Mg Tab PO 40 mg QDAY BRODERICK Administration Sodium Chloride 10 ml 02/27/21 10:00 03/01/21 22:01 Sodium Chloride 0.9% 10 Ml Flush Syringe IV 10 ml BID BRODERICK Administration Sodium Chloride 10 ml 02/27/21 05:56 Sodium Chloride 0.9% 10 Ml Flush Syringe IV PRN PRN LINE FLUSH Nutrition/Malnutrition Assess - Dietary Evaluation Nutrition/Malnutrition Findings: Nutrition Notes Start: 02/27/21 10:36 Freq: Status: Active Protocol: Document 02/27/21 10:37 KAJAL (Rec: 02/27/21 10:47 KAJAL [id number]) Nutrition Notes Need for Assessment generated from: MD Order,Education Initial or Follow up Brief Note Current Diagnosis CKD (stage V CKD),Diabetes, Hypertension,Stroke, Hyperlipidemia Other Pertinent Diagnosis Dyspnea, Resp distress, Hypertensive urgency Current Diet Consistent CHO/Renal Labs/Tests BUN 61 Cr 11.4 BG 184 BNP 38453 Pertinent Medications Reviewed Height 5 ft 6 in Weight 63.2 kg [place] Body Weight (kg) 59.09 BMI 22.4 Weight Status Appropriate Subjective/Other Information RD consulted for diet education. Per records, pt missed her last HD sec to transportation issues. Burn Absent Trauma Absent Minimum of two criteria No Is patient on ventilator? No Is Patient Ambulatory and/or Out of Bed Yes REE-([facility]-ambulatory/OOB) [ 1532.375 NUTR.MSJOOB] [facility] Additional Notes Pro needs >1.2g/kg: >76g/day Fluid needs 1-1.5L/day Nutrition Intervention Anticipated Discharge Needs: Renal/CHO-controlled diet Follow-Up By: 03/04/21 Additional Comments F/U: diet education needs, intakes, BP
--- NOTE | 2021-03-02 11:03 | Progress Note ---
Assessment and Plan Assessment and plan: #Fluid overload Patient missed dialysis due to transportation issues Her dialysis with improvement #Hypertensive urgency Blood pressure much stable now Continue home medications #Bilateral leg weakness Patient has a history of CVA admission but this is actually chronic. She uses a cane at home Had a physical therapy evaluation and physical therapy recommends placement. 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 History Interval history: 03/01. PT recommends rehab. MRI lumbar and thoracic negative for acute pathology 03/02. She has no complaints today. Awaiting placement. Hospitalist Physical - Physical exam Narrative exam: Patient VITAL SIGNS: Reviewed. GENERAL: Awake HEAD: No signs of head trauma. EYES: Pupils are equal. Extraocular motions intact. MOUTH: Oropharynx is normal. NECK: No adenopathy, no JVD. CHEST: Chest with diminished breath sounds bilaterally. No wheezes, rales, or rhonchi. CARDIAC: normal S1 and S2, without murmurs, gallops, or rubs. ABDOMEN: Soft, non tender and non distended. No rebound or guarding, and no masses palpated. Bowel Sounds normal. MUSCULOSKELETAL: No edema NEUROLOGIC EXAM: Alert and oriented x3. No focal neurologic deficits SKIN: No obvious lesions - Constitutional Vitals: Temp Pulse Resp BP Pulse Ox 98.6 F 59 L 14 131/58 96 03/02/21 04:53 03/02/21 05:43 03/02/21 04:53 03/02/21 05:43 03/02/21 04:53 Results - Labs CBC & Chem 7: 02/28/21 07:58 02/28/21 07:58 Labs: Laboratory Last Values WBC 8.5 K/mm3 (4.5-11.0) 02/28/21 07:58 RBC 3.91 M/mm3 (3.65-5.03) 02/28/21 07:58 Hgb 11.1 gm/dl (10.1-14.3) 02/28/21 07:58 Hct 34.6 % (30.3-42.9) 02/28/21 07:58 MCV 88 fl (79-97) 02/28/21 07:58 MCH 29 pg (28-32) 02/28/21 07:58 MCHC 32 % (30-34) 02/28/21 07:58 RDW 19.1 % (13.2-15.2) H 02/28/21 07:58 Plt Count 168 K/mm3 (140-440) 02/28/21 07:58 Lymph % (Auto) 22.4 % (13.4-35.0) 02/28/21 07:58 [place] % (Auto) 9.5 % (0.0-7.3) H 02/28/21 07:58 Eos % (Auto) 2.7 % (0.0-4.3) 02/28/21 07:58 Baso % (Auto) 1.1 % (0.0-1.8) 02/28/21 07:58 Lymph # (Auto) 1.9 K/mm3 (1.2-5.4) 02/28/21 07:58 [place] # (Auto) 0.8 K/mm3 (0.0-0.8) 02/28/21 07:58 Eos # (Auto) 0.2 K/mm3 (0.0-0.4) 02/28/21 07:58 Baso # (Auto) 0.1 K/mm3 (0.0-0.1) 02/28/21 07:58 Seg Neutrophils % 64.3 % (40.0-70.0) 02/28/21 07:58 Seg Neutrophils # 5.5 K/mm3 (1.8-7.7) 02/28/21 07:58 PT 12.3 Sec. (12.2-14.9) 02/27/21 04:15 INR 0.93 (0.87-1.13) 02/27/21 04:15 Sodium 136 mmol/L (137-145) L 02/28/21 07:58 Potassium 3.9 mmol/L (3.6-5.0) 02/28/21 07:58 Chloride 94.1 mmol/L (98-107) L 02/28/21 07:58 Carbon Dioxide 32 mmol/L (22-30) H D 02/28/21 07:58 Anion Gap 14 mmol/L 02/28/21 07:58 BUN 31 mg/dL (7-17) H 02/28/21 07:58 Creatinine 8.5 mg/dL (0.6-1.2) H 02/28/21 07:58 Estimated GFR 6 ml/min 02/28/21 07:58 BUN/Creatinine Ratio 4 % 02/28/21 07:58 Glucose 139 mg/dL (65-100) H 02/28/21 07:58 POC Glucose 127 mg/dL (70-105) H 03/01/21 23:18 Calcium 8.7 mg/dL (8.4-10.2) 02/28/21 07:58 Total Bilirubin 0.40 mg/dL (0.1-1.2) 02/27/21 04:15 AST 21 units/L (5-40) 02/27/21 04:15 ALT 20 units/L (7-56) 02/27/21 04:15 Alkaline Phosphatase 101 units/L (35-129) 02/27/21 04:15 NT-Pro-B Natriuret Pep 95773 pg/mL (0-900) H 02/27/21 04:15 Total Protein 7.4 g/dL (6.3-8.2) 02/27/21 04:15 Albumin 4.1 g/dL (3.9-5) 02/27/21 04:15 Albumin/Globulin Ratio 1.2 % 02/27/21 04:15 Hepatitis A IgM Ab Non-reactive (NonReactive) 02/27/21 11:20 Hep Bs Antigen Non-reactive (Negative) 02/27/21 11:20 Hep B Core IgM Ab Non-reactive (NonReactive) 02/27/21 11:20 Hepatitis C Antibody Non-reactive (NonReactive) 02/27/21 11:20 Ramon/IV: Voiding Method Bedside Commode Active Medications - Current Medications Current Medications: Generic Name Dose Route Start Last Admin Trade Name Freq PRN Reason Stop Dose Admin Acetaminophen 650 mg 02/27/21 05:56 Acetaminophen 325 Mg Tab PO Q4H PRN Pain MILD(1-3)/Fever >100.5/NARANJO Albuterol 2.5 mg 02/27/21 06:03 Albuterol 2.5 Mg/3 Ml Nebu IH Q4HRT PRN Shortness Of Breath Amlodipine Besylate 10 mg 02/27/21 10:00 03/01/21 09:28 Amlodipine 10 Mg Tab PO 10 mg QDAY BRODERICK Administration Aspirin 81 mg 02/27/21 10:00 03/01/21 09:28 Aspirin 81 Mg Tab Chew PO 81 mg QDAY BRODERICK Administration Atorvastatin Calcium 40 mg 02/27/21 22:00 03/01/21 21:57 Atorvastatin 40 Mg Tab PO 40 mg QHS BRODERICK Administration Clindamycin HCl 300 mg 02/27/21 06:00 03/02/21 05:42 Clindamycin 300 Mg Cap PO 03/03/21 22:01 300 mg Q8HR BRODERICK Administration Protocol Clonidine HCl 0.1 mg 02/27/21 15:00 03/02/21 05:43 Clonidine 0.1 Mg Tab PO 0.1 mg Q8HR BRODERICK Administration Dextrose 0 ml 02/27/21 06:23 Dextrose 50% In Water (25gm) 50 Ml Syringe IV Q30MIN PRN Hypoglycemia Protocol Famotidine 20 mg 02/27/21 10:00 03/01/21 09:28 Famotidine 20 Mg Tab PO 20 mg QAM BRODERICK Administration Heparin Sodium (Porcine) 5,000 unit 02/27/21 14:00 03/02/21 05:42 Heparin 5,000 Unit/1 Ml Vial SUB-Q 5,000 unit Q8HR BRODERICK Administration Hydralazine HCl 10 mg 02/27/21 06:07 02/27/21 12:33 Hydralazine 20 Mg/1 Ml Inj IV 10 mg Q6H PRN Administration htn Sodium Chloride 100 mls @ 999 mls/hr 02/28/21 09:00 Nacl 0.9% IV LUZMARIA PRN Hypotension Insulin Human Lispro 0 unit 02/27/21 07:30 03/01/21 23:43 Insulin Lispro 100 Unit/Ml SUB-Q Not Given ACHS [facility] Protocol Lorazepam 2 mg 02/28/21 16:17 02/28/21 16:17 Lorazepam 2 Mg/Ml Vial IV 2 mg Q6H PRN Administration Agitation Meclizine HCl 25 mg 02/27/21 05:55 Meclizine 25 Mg Tab PO TID PRN Vertigo Methocarbamol 500 mg 02/27/21 05:55 Methocarbamol 500 Mg Tab PO Q8H PRN Muscle Spasm Ondansetron HCl 4 mg 02/27/21 05:56 Ondansetron 4 Mg/2 Ml Inj IV Q8H PRN Nausea And Vomiting Pantoprazole Sodium 40 mg 02/27/21 10:00 03/01/21 09:28 Pantoprazole 40 Mg Tab PO 40 mg QDAY BRODERICK Administration Sodium Chloride 10 ml 02/27/21 10:00 03/01/21 22:01 Sodium Chloride 0.9% 10 Ml Flush Syringe IV 10 ml BID BRODERICK Administration Sodium Chloride 10 ml 02/27/21 05:56 Sodium Chloride 0.9% 10 Ml Flush Syringe IV PRN PRN LINE FLUSH Nutrition/Malnutrition Assess - Dietary Evaluation Nutrition/Malnutrition Findings: Nutrition Notes Start: 02/27/21 10:36 Freq: Status: Active Protocol: Document 02/27/21 10:37 KAJAL (Rec: 02/27/21 10:47 [facility] [email or web address]) Nutrition Notes Need for Assessment generated from: MD Order,Education Initial or Follow up Brief Note Current Diagnosis CKD (stage V CKD),Diabetes, Hypertension,Stroke, Hyperlipidemia Other Pertinent Diagnosis Dyspnea, Resp distress, Hypertensive urgency Current Diet Consistent CHO/Renal Labs/Tests BUN 61 Cr 11.4 BG 184 BNP 67625 Pertinent Medications Reviewed Height 5 ft 6 in Weight 63.2 kg [place] Body Weight (kg) 59.09 BMI 22.4 Weight Status Appropriate Subjective/Other Information RD consulted for diet education. Per records, pt missed her last HD sec to transportation issues. Burn Absent Trauma Absent Minimum of two criteria No Is patient on ventilator? No Is Patient Ambulatory and/or Out of Bed Yes REE-([facility]-ambulatory/OOB) [ 1532.375 NUTR.MSJOOB] Calculation Used for Recommendations [facility] Additional Notes Pro needs >1.2g/kg: >76g/day Fluid needs 1-1.5L/day Nutrition Intervention Anticipated Discharge Needs: Renal/CHO-controlled diet Follow-Up By: 03/04/21 Additional Comments F/U: diet education needs, intakes, BP
[2021-03-02] MEDS: EPOETIN ALFA-EPBX 10,000 UNIT/1 ML VIAL IV PRN (11:41)
[2021-03-02 16:04] VITALS: BP 135/60
[2021-03-02] MEDS: INSULIN LISPRO 100 UNIT/ML SUB-Q SCH ×2 (17:23→17:24)
[2021-03-02] MEDS: PANTOPRAZOLE 40 MG TAB PO SCH (17:24)
[2021-03-02] MEDS: FAMOTIDINE 20 MG TAB PO SCH (17:24)
[2021-03-02] MEDS: amLODIPine 10 MG TAB PO SCH (17:24)
[2021-03-02] MEDS: ASPIRIN 81 MG TAB CHEW PO SCH (17:24)
== END 2021-03-02 18:00 | disposition home or self-care (01) ==
LOC: ED 03:32 → 3A 05:25
PROVIDERS: ADMIT Hospitalist; ATTEND Internal Medicine
DX: I63.9 Cerebral infarction, unspecified (principal); Z20.822 Contact with and (suspected) exposure to COVID-19; I16.0 Hypertensive urgency; I12.0 Hypertensive chronic kidney disease with stage 5 chronic kidney disease or end stage renal disease; N18.6 End stage renal disease; E11.22 Type 2 diabetes mellitus with diabetic chronic kidney disease; E11.65 Type 2 diabetes mellitus with hyperglycemia; E87.70 Fluid overload, unspecified; N25.81 Secondary hyperparathyroidism of renal origin; R06.00 Dyspnea, unspecified; E78.5 Hyperlipidemia, unspecified; F02.80 Dementia in other diseases classified elsewhere, unspecified severity, without behavioral disturbance, psychotic disturbance, mood disturbance, and anxiety; F17.210 Nicotine dependence, cigarettes, uncomplicated; M25.50 Pain in unspecified joint; Z99.2 Dependence on renal dialysis; Z86.73 Personal history of transient ischemic attack (TIA), and cerebral infarction without residual deficits; Z79.82 Long term (current) use of aspirin; Z79.4 Long term (current) use of insulin; Z79.899 Other long term (current) drug therapy
CPT/HCPCS: 36415; 70450; 71045; 72146; 72148; 80048; 80053; 80074; 82962; 83880; 85025; 85610; 93005; 96372; 96374; 96375; 96376; 97162; 99285; A9270; G0257; G0378; J0360; J0885; J1644; J2060; U0003; J1815

== ENCOUNTER 2021-08-22 10:03 | Emergency (ER) | payer MEDICARE ==
[2021-08-22 10:14] VITALS: BP 130/58
--- NOTE | 2021-08-22 10:22 | Emergency Department Report ---
ED Chest Pain HPI - General Chief Complaint: Chest Pain Stated Complaint: WEAKNESS Time Seen by Provider: 08/22/21 10:19 Source: EMS Mode of arrival: Stretcher Limitations: No Limitations - History of Present Illness Initial Comments: This is a 70-year-old -[place] Citizen female presents to the emergency department via EMS from dialysis with complaint of some transient midsternal chest pain and what sounds like orthostatic hypotension. Patient says that she completed her dialysis session and was standing up on the scale for the postdialysis weight when she began feeling very dizzy/lightheaded. They checked her blood pressure and it was on the low side of normal and the patient says "it dropped." At the time of my examination the patient says that the chest pain has resolved and she is feeling back at her baseline status. 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 Patient gets dialysis at [facility] in her account development representative is Dr. Bryant. Severity scale (0 -10): 0 - Related Data Home Medications Medication Instructions Recorded Confirmed Last Taken Vit B12/Levomefolate/Vit B6/B2 1 each PO DAILY 08/26/18 02/28/21 Unknown [Cerefolin Caplet] Previous Rx's Medication Instructions Recorded Last Taken Type Aspirin [Aspirin BABY CHEW TAB] 81 mg PO QDAY #30 tab.chew 08/28/18 Unknown Rx AtorvaSTATin [Lipitor] 40 mg PO QHS #30 tablet 08/28/18 Unknown Rx Pantoprazole [Protonix TAB] 40 mg PO QDAY #30 tablet 08/28/18 Unknown Rx amLODIPine 10 mg PO QDAY #30 tablet 08/28/18 Unknown Rx methOCARBAMOL [Robaxin TAB] 500 mg PO Q8HR PRN #20 tablet 09/28/19 Unknown Rx Meclizine [Antivert] 25 mg PO TID PRN #20 tablet 10/02/20 Unknown Rx cloNIDine [Catapres] 0.1 mg PO BID PRN #20 tablet 02/28/21 Unknown Rx Allergies Allergy/AdvReac Type Severity Reaction Status Date / Time No Known Allergies Allergy Verified 02/22/16 23:57 Heart Score - HEART Score History: Slightly suspicious EKG: Non-specific Age: > 65 Risk factors: > 3 risk factors or hx of atherosclerotic disease Troponin: 1-3x normal limit HEART Score: 6 - EKG Read Time Time EKG Completed: 10:24 EKG Read Time: 10:25 ED Review of Systems ROS: Stated complaint: WEAKNESS Other details as noted in HPI Comment: All other systems reviewed and negative Constitutional: denies: chills, fever Eyes: denies: eye pain, vision change ENT: denies: ear pain, throat pain Respiratory: denies: cough, shortness of breath Cardiovascular: chest pain. denies: edema Gastrointestinal: denies: abdominal pain, vomiting Genitourinary: denies: dysuria, discharge Musculoskeletal: denies: back pain, arthralgia Skin: denies: rash, lesions Neurological: other (Dizziness/lightheadedness). denies: headache ED Past Medical Hx - Past Medical History Hx Hypertension: Yes Hx CVA: Yes (TIA) Hx Diabetes: Yes Hx Renal Disease: Yes (M, W, F) Hx Dementia: Yes - Surgical History Additional Surgical History: DIAYSIS FISTULA LEFT UPPER ARM - Social History Smoking Status: Former Smoker - Medications Home Medications: Home Medications Medication Instructions Recorded Confirmed Last Taken Type Vit B12/Levomefolate/Vit B6/B2 1 each PO DAILY 08/26/18 02/28/21 Unknown History [Cerefolin Caplet] Aspirin [Aspirin BABY CHEW TAB] 81 mg PO QDAY #30 tab.chew 08/28/18 02/28/21 Unknown Rx AtorvaSTATin [Lipitor] 40 mg PO QHS #30 tablet 08/28/18 02/28/21 Unknown Rx Pantoprazole [Protonix TAB] 40 mg PO QDAY #30 tablet 08/28/18 02/28/21 Unknown Rx amLODIPine 10 mg PO QDAY #30 tablet 08/28/18 02/28/21 Unknown Rx methOCARBAMOL [Robaxin TAB] 500 mg PO Q8HR PRN #20 tablet 09/28/19 02/28/21 Unknown Rx Meclizine [Antivert] 25 mg PO TID PRN #20 tablet 10/02/20 02/28/21 Unknown Rx cloNIDine [Catapres] 0.1 mg PO BID PRN #20 tablet 02/28/21 Unknown Rx ED Physical Exam - General Limitations: No Limitations - Other Other exam information: GENERAL: The patient is well-developed well-nourished. HENT: Normocephalic. Atraumatic. Patient has moist mucous membranes. EYES: Extraocular motions are intact. NECK: Supple. Trachea is midline. CHEST/LUNGS: Clear to auscultation. There is no respiratory distress noted. HEART/CARDIOVASCULAR: Regular. There is no tachycardia. There is no murmur. ABDOMEN: Abdomen is soft, nontender. Patient has normal bowel sounds. SKIN: Skin is warm and dry. NEURO: The patient is awake, alert, and oriented. The patient is cooperative. The patient has no focal neurologic deficits. Normal speech. Cranial nerves II through XII grossly intact. No facial asymmetry. MUSCULOSKELETAL: There is no tenderness or deformity. ED Course Vital Signs 08/22/21 10:11 Temperature 98.7 F Pulse Rate 57 L Respiratory 20 Rate Blood Pressure 130/58 [Right] O2 Sat by Pulse 98 Oximetry - Reevaluation(s) Reevaluation #1: 08/22/21 12:50 I went to reevaluate the patient and discussed her current results, and explain that we are going to obtain a second troponin. The patient was listed as being in reassessment chair #4. I checked all of the reassessment area, MSE, triage, the rooms in fast track, but the patient is nowhere to be found. I called her home number and the patient had eloped from the emergency department without telling anybody and is currently at home. I explained to the patient that while her work-up thus far has been relatively unremarkable, that I was not done with her cardiac evaluation and recommend that she returns for a second troponin and further evaluation. The patient has declined and understands the risks involved including chest pain, syncope, VA, or even . She understands that if she chooses not to return to the emergency department that she has been instructed to follow-up with her PCP and a back hoe operator. - Consultations Consultation #1: 08/22/21 13:22 I spoke with cardiology regarding this patient. I spoke with TOBI Gillespie, under Dr. Soto. The plan was that if the second troponin does not significantly el evate, and the patient remains asymptomatic, then she is good for discharge with outpatient follow-up. MISHA score - Misha Score Age > 65: (1) Yes Aspirin use within the Past 7 Days: (0) No 3 or more CAD Risk Factors: (1) Yes 2 or more Angina events in past 24 hrs: (0) No Known CAD with more than 50% Stenosis: (0) No Elevated Cardiac Markers: (1) Yes ST Deviation Greater than 0.5mm: (0) No MISHA Score: 3 ED Medical Decision Making - Lab Data Result diagrams: 08/22/21 10:37 08/22/21 10:37 Lab Results 08/22/21 08/22/21 Range/Units 10:37 10:37 WBC 6.0 (4.5-11.0) K/mm3 RBC 3.64 L (3.65-5.03) M/mm3 Hgb 11.1 (10.1-14.3) gm/dl Hct 33.0 (30.3-42.9) % MCV 91 (79-97) fl MCH 31 (28-32) pg MCHC 34 (30-34) % RDW 17.0 H (13.2-15.2) % Plt Count 258 (140-440) K/mm3 Lymph % (Auto) 26.8 (13.4-35.0) % [place] % (Auto) 7.8 H (0.0-7.3) % Eos % (Auto) 2.4 (0.0-4.3) % Baso % (Auto) 1.2 (0.0-1.8) % Lymph # (Auto) 1.6 (1.2-5.4) K/mm3 [place] # (Auto) 0.5 (0.0-0.8) K/mm3 Eos # (Auto) 0.1 (0.0-0.4) K/mm3 Baso # (Auto) 0.1 (0.0-0.1) K/mm3 Seg Neutrophils % 61.8 (40.0-70.0) % Seg Neutrophils # 3.7 (1.8-7.7) K/mm3 Sodium 138 (137-145) mmol/L Potassium 3.2 L (3.6-5.0) mmol/L Chloride 94.1 L (98-107) mmol/L Carbon Dioxide 33 H (22-30) mmol/L Anion Gap 14 mmol/L BUN 12 (7-17) mg/dL Creatinine 4.3 H (0.6-1.2) mg/dL Estimated GFR 12 ml/min BUN/Creatinine Ratio 3 % Glucose 144 H (65-100) mg/dL Calcium 8.6 (8.4-10.2) mg/dL Troponin T 0.065 H (0.00-0.029) ng/mL Triglycerides 209 H (2-149) mg/dL Cholesterol 307 H (50-199) mg/dL LDL Cholesterol Direct 208 H (50-130) mg/dL HDL Cholesterol 68 H (40-59) mg/dL Cholesterol/HDL Ratio 4.51 % - EKG Data -: EKG Interpreted by Me EKG shows normal: sinus rhythm, axis, intervals (Prolonged ME interval), QRS complexes, ST-T waves (T wave inversions and mild ST depressions to the lateral and inferior leads) Rate: bradycardia (59 bpm) - EKG Data When compared to previous EKG there are: changes noted (Previous EKG did not show T wave inversion and ST depressions to the lateral and inferior leads) Interpretation: other (Sinus rhythm at 59 bpm, normal axis, prolonged ME interval, T wave inversions and mild ST depressions to the inferior lateral leads) - Radiology Data Radiology results: image reviewed interpreted by me: Chest x-ray does not show any acute process. There are no pleural effusions, obvious pneumonia and there is no pneumothorax. No widened mediastinum. - Medical Decision Making This patient initially presented to the emergency department via EMS from dialysis after she had what sounds like orthostatic hypotension followed by a transient episode of chest pain. At the time of my initial examination, upon presentation to the emergency department, the patient is asymptomatic. EKG did not show any morphology consistent with ST elevation myocardial infarction, but there may have been some new T wave inversions inferior laterally with mild ST depressions. Patient's labs shows renal insufficiency consistent with her end-stage renal disease on hemodialysis, and a slightly elevated troponin level of about 0.06. I spoke with cardiology who says that this elevated troponin level is consistent with previous visits and that if the patient remains asymptomatic and the second troponin does not significantly trend upwards, the patient is safe for discharge and outpatient follow-up. However, in the interim, the patient eloped from the emergency department without notifying anybody. I did speak to the patient at home, after finding out about the elopement, and expressed my concern and requested that she return to the emergency department for further evaluation, or at least a second troponin level. The patient declined returning to the ER at this time and understands the risks of having left. She has been instructed to follow-up with primary care and cardiology, but she understands she can return to the emergency department at any time if she changes her mind about further evaluation, or with any acute distress. Critical Care Time: No Critical care attestation.: If time is entered above; I have spent that time in minutes in the direct care of this critically ill patient, excluding procedure time. ED Disposition Clinical Impression: Chest pain, ESRD on hemodialysis, Dizziness Disposition: 07 LEFT AWOL/ELOPED Is pt being admited?: No Time of Disposition: 14:16
--- NOTE | 2021-08-22 10:52 | XRay Report ---
XR chest routine 2V INDICATION / CLINICAL INFORMATION: CP COMPARISON: 02/27/2021 FINDINGS: SUPPORT DEVICES: None. HEART / MEDIASTINUM: No significant abnormality. LUNGS / PLEURA: Lungs are clear. Costophrenic sulci are sharp. No pneumothorax. ADDITIONAL FINDINGS: No significant additional findings. IMPRESSION: 1. No acute findings. Signer Name: Edgar Porras MD Signed: 08/22/2021 10:47 AM Workstation Name: [id number]
[2021-08-22 11:42] LABS: Calcium 8.6 mg/dL (8.4-10.2)
[2021-08-22 12:14] LABS: Basophils # (Auto) 0.1 K/mm3 (0.0-0.1); Basophils % (Auto) 1.2 % (0.0-1.8); Eosinophils # (Auto) 0.1 K/mm3 (0.0-0.4); Eosinophils % (Auto) 2.4 % (0.0-4.3); Hemoglobin 11.1 gm/dl (10.1-14.3); Lymphocytes # (Auto) 1.6 K/mm3 (1.2-5.4); Lymphocytes % (Auto) 26.8 % (13.4-35.0); Mean Corpuscular HGB Conc 34 % (30-34); Mean Corpuscular Volume 91 fl (79-97); Monocytes # (Auto) 0.5 K/mm3 (0.0-0.8); Monocytes % (Auto) 7.8 % (0.0-7.3); Platelet Count 258 K/mm3 (140-440); Red Blood Count 3.64 M/mm3 (3.65-5.03)
[2021-08-22 12:30] LABS: Chol/HDL Ratio 4.51 %
--- NOTE | 2021-08-27 14:18 | Electrocardiograph Report ---
[facility] Test Date: 2021-08-22 Test Time: 10:24:02 Pat Name: ROULA العلي Department: Room: Gender: F Check Inspector: SHANNON : 1950 Requested By: ANDREWS STEELE Order Number: [id number] Reading MD: Greta Dickey Measurements Intervals [place] Rate: 59 P: 66 W[place]: 210 QRS: 89 QRSD: 92 T: 234 QT: 482 QTc: 476 Interpretive Statements Sinus rhythm Repol abnrm, global ischemia, diffuse leads Compared to ECG 02/27/2021 04:44:16 No significant change Electronically Signed On 08-27-2021 14:18:24 EDT by Greta Dickey
== END 2021-08-22 13:00 | disposition left against medical advice (07) ==
LOC: ED 10:03
DX: R07.9 Chest pain, unspecified (principal); I12.0 Hypertensive chronic kidney disease with stage 5 chronic kidney disease or end stage renal disease; E11.22 Type 2 diabetes mellitus with diabetic chronic kidney disease; N18.6 End stage renal disease; Z99.2 Dependence on renal dialysis; R42 Dizziness and giddiness; Z86.73 Personal history of transient ischemic attack (TIA), and cerebral infarction without residual deficits; F03.90 Unspecified dementia, unspecified severity, without behavioral disturbance, psychotic disturbance, mood disturbance, and anxiety; Z98.890 Other specified postprocedural states; Z87.891 Personal history of nicotine dependence
CPT/HCPCS: 36415; 71046; 80048; 80061; 84484; 85025; 93005; 99284

== ENCOUNTER 2021-11-13 08:15 | Emergency (ER) | payer MEDICARE ==
--- NOTE | 2021-11-13 08:42 | Emergency Department Report ---
ED Altered Mental Status HPI - General Chief Complaint: Altered Mental Status Stated Complaint: ALTERED MENTAL STATUS Time Seen by Provider: 11/13/21 08:36 Source: EMS Mode of arrival: Stretcher Limitations: No Limitations - History of Present Illness Initial Comments: Patient presents from dialysis secondary to altered mental status. While there, she had a transient episode where her blood pressure dropped in the 60s. She became confused. Dialysis staff gave her a 500 mL saline bolus. Her pressure returned. Her mental status returned. She was sent here for further evaluation. Upon arrival, patient has no complaints. She states that she felt out of it. She denies headache or chest pain. She has no back pain. She has had no vomiting or diarrhea. She states that she felt well when she got up this morning. She has never had symptoms like this before. - Related Data Home Medications Medication Instructions Recorded Confirmed Last Taken Vit B12/Levomefolate/Vit B6/B2 1 each PO DAILY 08/26/18 02/28/21 Unknown [Cerefolin Caplet] Previous Rx's Medication Instructions Recorded Last Taken Type Aspirin [Aspirin BABY CHEW TAB] 81 mg PO QDAY #30 tab.chew 08/28/18 Unknown Rx AtorvaSTATin [Lipitor] 40 mg PO QHS #30 tablet 08/28/18 Unknown Rx Pantoprazole [Protonix TAB] 40 mg PO QDAY #30 tablet 08/28/18 Unknown Rx amLODIPine 10 mg PO QDAY #30 tablet 08/28/18 Unknown Rx methOCARBAMOL [Robaxin TAB] 500 mg PO Q8HR PRN #20 tablet 09/28/19 Unknown Rx Meclizine [Antivert] 25 mg PO TID PRN #20 tablet 10/02/20 Unknown Rx cloNIDine [Catapres] 0.1 mg PO BID PRN #20 tablet 02/28/21 Unknown Rx Allergies Allergy/AdvReac Type Severity Reaction Status Date / Time No Known Allergies Allergy Verified 02/22/16 23:57 ED Review of Systems ROS: Stated complaint: ALTERED MENTAL STATUS Other details as noted in HPI ED Past Medical Hx - Past Medical History Hx Hypertension: Yes Hx CVA: Yes (TIA) Hx Diabetes: Yes Hx Renal Disease: Yes (M, W, F) Hx Dementia: Yes - Surgical History Additional Surgical History: DIAYSIS FISTULA LEFT UPPER ARM - Social History Smoking Status: Former Smoker - Medications Home Medications: Home Medications Medication Instructions Recorded Confirmed Last Taken Type Vit B12/Levomefolate/Vit B6/B2 1 each PO DAILY 08/26/18 02/28/21 Unknown History [Cerefolin Caplet] Aspirin [Aspirin BABY CHEW TAB] 81 mg PO QDAY #30 tab.chew 08/28/18 02/28/21 Unknown Rx AtorvaSTATin [Lipitor] 40 mg PO QHS #30 tablet 08/28/18 02/28/21 Unknown Rx Pantoprazole [Protonix TAB] 40 mg PO QDAY #30 tablet 08/28/18 02/28/21 Unknown Rx amLODIPine 10 mg PO QDAY #30 tablet 08/28/18 02/28/21 Unknown Rx methOCARBAMOL [Robaxin TAB] 500 mg PO Q8HR PRN #20 tablet 09/28/19 02/28/21 Unknown Rx Meclizine [Antivert] 25 mg PO TID PRN #20 tablet 10/02/20 02/28/21 Unknown Rx cloNIDine [Catapres] 0.1 mg PO BID PRN #20 tablet 02/28/21 Unknown Rx ED Physical Exam - General Limitations: No Limitations, Other ( Pulse ox noted and normal) General appearance: alert, in no apparent distress - Head Head exam: Present: atraumatic, normocephalic - Eye Eye exam: Present: normal appearance, EOMI - ENT ENT exam: Present: mucous membranes dry, normal external ear exam - Neck Neck exam: Present: normal inspection. Absent: meningismus - Respiratory Respiratory exam: Present: normal lung sounds bilaterally. Absent: respiratory distress - Cardiovascular Cardiovascular Exam: Present: regular rate, normal rhythm - GI/Abdominal GI/Abdominal exam: Present: soft. Absent: tenderness - Extremities Exam Extremities exam: Present: normal capillary refill, other ( AV fistula in left arm with good thrill and bruit) - Back Exam Back exam: Absent: CVA tenderness (R), CVA tenderness (L) - Neurological Exam Neurological exam: Present: alert, oriented X3, CN II-XII intact. Absent: motor sensory deficit - Psychiatric Psychiatric exam: Present: normal affect, normal mood - Skin Skin exam: Present: warm, dry ED Course Vital Signs 11/13/21 11/13/21 11/13/21 08:17 08:44 08:46 Temperature 98.7 F 98.7 F Pulse Rate 60 61 Respiratory 16 14 Rate Blood Pressure 138/70 Blood Pressure 173/74 [Right] O2 Sat by Pulse 97 94 95 Oximetry - Reevaluation(s) Reevaluation #1: 11/13/21 08:42 old records reviewed. IV labs were ordered. Reevaluation #2: 11/13/21 09:59 Labs are noted. Patient was discharged. - Lab Data Result diagrams: 11/13/21 09:06 11/13/21 09:06 Lab Results 11/13/21 11/13/21 Range/Units 09:06 09:06 WBC 5.1 (4.5-11.0) K/mm3 RBC 4.61 (3.65-5.03) M/mm3 Hgb 12.9 (10.1-14.3) gm/dl Hct 41.2 (30.3-42.9) % MCV 89 (79-97) fl MCH 28 (28-32) pg MCHC 31 (30-34) % RDW 16.8 H (13.2-15.2) % Plt Count 136 L (140-440) K/mm3 Lymph % (Auto) 41.2 H (13.4-35.0) % [place] % (Auto) 7.4 H (0.0-7.3) % Eos % (Auto) 12.0 H (0.0-4.3) % Baso % (Auto) 2.2 H (0.0-1.8) % Lymph # (Auto) 2.1 (1.2-5.4) K/mm3 [place] # (Auto) 0.4 (0.0-0.8) K/mm3 Eos # (Auto) 0.6 H (0.0-0.4) K/mm3 Baso # (Auto) 0.1 (0.0-0.1) K/mm3 Seg Neutrophils % 37.2 L (40.0-70.0) % Seg Neutrophils # 1.9 (1.8-7.7) K/mm3 Sodium 140 (137-145) mmol/L Potassium 3.4 L (3.6-5.0) mmol/L Chloride 96.3 L (98-107) mmol/L Carbon Dioxide 28 (22-30) mmol/L Anion Gap 19 mmol/L BUN 17 (7-17) mg/dL Creatinine 5.2 H (0.6-1.2) mg/dL Estimated GFR 10 ml/min BUN/Creatinine Ratio 3 % Glucose 107 H (65-100) mg/dL Calcium 8.8 (8.4-10.2) mg/dL Total Bilirubin 0.40 (0.1-1.2) mg/dL AST 9 (5-40) units/L ALT 6 L (7-56) units/L Alkaline Phosphatase 90 (35-129) units/L Total Protein 7.1 (6.3-8.2) g/dL Albumin 4.4 (3.9-5) g/dL Albumin/Globulin Ratio 1.6 % - Medical Decision Making Patient presents with transient alteration of awareness. Etiology for this is unknown. She had transient hypotension during dialysis. This is likely secondary to fluid shift. That was likely the precipitating event. At this time, she is alert and oriented. She is in no distress. She has neurologically intact. Patient has no obvious infectious or metabolic derangement. She was treated symptomatically and referred for out patient follow-up. There is no evidence of acute stroke. Critical Care Time: No Critical care attestation.: If time is entered above; I have spent that time in minutes in the direct care of this critically ill patient, excluding procedure time. ED Disposition Clinical Impression: Transient alteration of awareness Disposition: 01 HOME / SELF CARE / HOMELESS Is pt being admited?: No Condition: Stable Additional Instructions: Drink plenty water. Return for problems. Follow-up with your kidney doctor and your family doctor.
[2021-11-13 09:26] LABS: Basophils # (Auto) 0.1 K/mm3 (0.0-0.1); Basophils % (Auto) 2.2 % (0.0-1.8); Eosinophils # (Auto) 0.6 K/mm3 (0.0-0.4); Hematocrit 41.2 % (30.3-42.9); Hemoglobin 12.9 gm/dl (10.1-14.3); Lymphocytes # (Auto) 2.1 K/mm3 (1.2-5.4); Lymphocytes % (Auto) 41.2 % (13.4-35.0); Mean Corpuscular HGB Conc 31 % (30-34); Mean Corpuscular Volume 89 fl (79-97); Monocytes # (Auto) 0.4 K/mm3 (0.0-0.8); Monocytes % (Auto) 7.4 % (0.0-7.3); Platelet Count 136 K/mm3 (140-440); Red Blood Count 4.61 M/mm3 (3.65-5.03); Red Cell Distribution Width 16.8 % (13.2-15.2)
[2021-11-13 09:42] LABS: Albumin 4.4 g/dL (3.9-5); Calcium 8.8 mg/dL (8.4-10.2)
[2021-11-13 11:49] VITALS: BP 175/79
--- NOTE | 2021-11-13 17:52 | Electrocardiograph Report ---
[facility] Test Date: 2021-11-13 Test Time: 08:52:02 Pat Name: ROULA العلي Department: Room: Gender: F [employer] Operator: NICHOLAS : 1950 Requested By: BRITT SOLIMAN Order Number: [id number] Reading MD: Greta Dickey Measurements Intervals [place] Rate: 61 P: -6 [place]: 197 QRS: 23 QRSD: 95 T: 238 QT: 485 QTc: 489 Interpretive Statements Sinus rhythm Deep anterior T wave inversions suggest possible acute ischemia Compared to ECG 08/22/2021 10:24:02 Anterior T wave inversions are now more prominent Electronically Signed On 11-13-2021 17:51:34 EST by Greta Dickey
== END 2021-11-13 11:50 | disposition home or self-care (01) ==
LOC: ED 08:15
DX: R40.4 Transient alteration of awareness (principal); I10 Essential (primary) hypertension; F03.90 Unspecified dementia, unspecified severity, without behavioral disturbance, psychotic disturbance, mood disturbance, and anxiety; Z86.73 Personal history of transient ischemic attack (TIA), and cerebral infarction without residual deficits; Z98.890 Other specified postprocedural states; Z87.891 Personal history of nicotine dependence
CPT/HCPCS: 36415; 80053; 85025; 93005; 99283

== ENCOUNTER 2022-02-18 08:33 | Emergency (ER) | payer MEDICARE ==
[2022-02-18 08:37] VITALS: BP 130/71
--- NOTE | 2022-02-18 08:59 | Emergency Department Report ---
HPI - General Chief Complaint: Weakness Time Seen by Provider: 02/18/22 08:44 - HPI HPI: Room 24 The patient is a 71-year-old female present with a chief complaint of weakness. The patient was receiving hemodialysis when she began complaining of weakness. Patient was found to be hypotensive with a systolic in the 90s. Dialysis was stopped after the patient had completed 75% of it. EMS administered some IV fluids prior to arrival to the ED. In the ED the patient was normotensive. When asked if anything is bothering her the patient replies "I do not think anything is bothering me right now." ED Past Medical Hx - Past Medical History Hx Hypertension: Yes Hx CVA: Yes (TIA) Hx Diabetes: Yes Hx Renal Disease: Yes (M, W, F) Hx Dementia: Yes - Surgical History Additional Surgical History: DIAYSIS FISTULA LEFT UPPER ARM - Family History Family history: no significant - Social History Smoking Status: Current Every Day Smoker (1/3 pack/day) Substance Use Type: None (Denies illicit drug use) - Medications Home Medications: Home Medications Medication Instructions Recorded Confirmed Last Taken Type Vit B12/Levomefolate/Vit B6/B2 1 each PO DAILY 08/26/18 02/28/21 Unknown History [Cerefolin Caplet] Aspirin [Aspirin BABY CHEW TAB] 81 mg PO QDAY #30 tab.chew 08/28/18 02/28/21 Unknown Rx AtorvaSTATin [Lipitor] 40 mg PO QHS #30 tablet 08/28/18 02/28/21 Unknown Rx Pantoprazole [Protonix TAB] 40 mg PO QDAY #30 tablet 08/28/18 02/28/21 Unknown Rx amLODIPine 10 mg PO QDAY #30 tablet 08/28/18 02/28/21 Unknown Rx methOCARBAMOL [Robaxin TAB] 500 mg PO Q8HR PRN #20 tablet 09/28/19 02/28/21 Unknown Rx Meclizine [Antivert] 25 mg PO TID PRN #20 tablet 10/02/20 02/28/21 Unknown Rx cloNIDine [Catapres] 0.1 mg PO BID PRN #20 tablet 02/28/21 Unknown Rx ED Review of Systems ROS: Stated complaint: WEAKNESS Other details as noted in HPI Constitutional: weakness Eyes: denies: eye pain ENT: denies: throat pain Respiratory: no symptoms reported Cardiovascular: denies: chest pain Endocrine: no symptoms reported Gastrointestinal: denies: abdominal pain Genitourinary: denies: abnormal menses Musculoskeletal: denies: back pain Neurological: denies: headache Physical Exam - Physical Exam Vital Signs: Vital Signs 02/18/22 08:37 Temperature 98.1 F Pulse Rate 55 L Respiratory 16 Rate Blood Pressure 130/71 [Right] O2 Sat by Pulse 98 Oximetry Physical Exam: GENERAL: The patient is well-developed well-nourished female lying on stretcher not appearing to be in acute distress. [] HEENT: Normocephalic. Atraumatic. Patient has moist mucous membranes. NECK: Supple. Trachea midline CHEST/LUNGS: Clear to auscultation. There is no respiratory distress noted. HEART/CARDIOVASCULAR: Regular. There is no tachycardia. There is no gallop rub or murmur. ABDOMEN: Abdomen is soft, nontender. Patient has normal bowel sounds. There is no abdominal distention. SKIN: There is no rash. There is no edema. There is no diaphoresis. NEURO: The patient is awake and alert. The patient is cooperative. The patient has no focal neurologic deficits. The patient has normal speech. GCS 15 MUSCULOSKELETAL: There is no evidence of acute injury. ED Course Vital Signs 02/18/22 08:37 Temperature 98.1 F Pulse Rate 55 L Respiratory 16 Rate Blood Pressure 130/71 [Right] O2 Sat by Pulse 98 Oximetry - Consultations Consultation #1: 02/18/22 10:55 Discussed with at bedside-patient only complains of hunger, can feed patient before discharge ED Medical Decision Making - Lab Data Result diagrams: 02/18/22 09:14 02/18/22 09:14 - Differential Diagnosis Hypovolemia Critical care attestation.: If time is entered above; I have spent that time in minutes in the direct care of this critically ill patient, excluding procedure time. ED Disposition Clinical Impression: ESRD (end stage renal disease) on dialysis Disposition: 01 HOME / SELF CARE / HOMELESS Is pt being admited?: No Does the pt Need Aspirin: No Condition: Stable Additional Instructions: Return to the emergency department should you develop worsening symptoms, inability to tolerate food or liquids, high fever or any other concerns Referrals: RASHAD CHANG MD [Primary Care Provider] - 3-5 Days Time of Disposition: 10:58
[2022-02-18 09:49] LABS: Basophils # (Auto) 0.1 K/mm3 (0.0-0.1); Basophils % (Auto) 0.9 % (0.0-1.8); Eosinophils % (Auto) 0.6 % (0.0-4.3); Hematocrit 43.4 % (30.3-42.9); Lymphocytes # (Auto) 1.5 K/mm3 (1.2-5.4); Lymphocytes % (Auto) 19.6 % (13.4-35.0); Mean Corpuscular HGB Conc 32 % (30-34); Mean Corpuscular Volume 93 fl (79-97); Monocytes # (Auto) 0.6 K/mm3 (0.0-0.8); Monocytes % (Auto) 8.1 % (0.0-7.3); Red Blood Count 4.68 M/mm3 (3.65-5.03); Red Cell Distribution Width 18.6 % (13.2-15.2)
[2022-02-18 09:58] LABS: Calcium 9.2 mg/dL (8.4-10.2)
[2022-02-18 10:09] LABS: Platelet Count 151 K/mm3 (140-440)
== END 2022-02-18 11:34 | disposition home or self-care (01) ==
LOC: ED 08:33
DX: I12.0 Hypertensive chronic kidney disease with stage 5 chronic kidney disease or end stage renal disease (principal); E11.22 Type 2 diabetes mellitus with diabetic chronic kidney disease; N18.6 End stage renal disease; F17.200 Nicotine dependence, unspecified, uncomplicated
CPT/HCPCS: 36415; 80048; 85025; 99283

== ENCOUNTER 2022-07-14 05:58 | Observation (INO) | payer MEDICARE ==
[2022-07-14] MEDS ORDERED: NITROGLYCERIN 2% OINT 1 GM TP ONE (06:27)
[2022-07-14] MEDS ORDERED: FUROSEMIDE 40 MG/4 ML INJ IV ONE (06:27)
--- NOTE | 2022-07-14 06:32 | Emergency Department Report ---
ED Shortness of Breath HPI - General Chief Complaint: Dyspnea/Respdistress Stated Complaint: SOB Time Seen by Provider: 07/14/22 06:11 Source: patient, old records reviewed Mode of arrival: Stretcher Limitations: No Limitations - History of Present Illness Initial Comments: 71-year-old female with a past medical history of hypertension, diabetes, end-st age renal disease on dialysis Friday, Friday, and Friday presents to the hospital complaining of shortness of breath upon waking this morning. Dyspnea is worse with lying supine and with exertion. Patient found to be hypoxic with a room air saturation of 82% upon EMS arrival. Occasional cough reported. Patient denies fever or chest pain. Patient was admitted here in May with similar symptoms secondary to pulmonary edema. Patient reports compliance with her dialysis. Patient is not vaccinated for COVID but tested negative during May admission. Dining Car Server Dr. Bryant - Related Data Home Medications Medication Instructions Recorded Confirmed Last Taken Vit B12/Levomefolate/Vit B6/B2 1 each PO DAILY 08/26/18 05/27/22 Unknown [Cerefolin Caplet] Previous Rx's Medication Instructions Recorded Last Taken Type Aspirin [Aspirin BABY CHEW TAB] 81 mg PO QDAY #30 tab.chew 08/28/18 Unknown Rx AtorvaSTATin [Lipitor] 40 mg PO QHS #30 tablet 08/28/18 Unknown Rx Pantoprazole [Protonix TAB] 40 mg PO QDAY #30 tablet 08/28/18 Unknown Rx amLODIPine 10 mg PO QDAY #30 tablet 08/28/18 Unknown Rx methOCARBAMOL [Robaxin TAB] 500 mg PO Q8HR PRN #20 tablet 09/28/19 Unknown Rx Meclizine [Antivert] 25 mg PO TID PRN #20 tablet 10/02/20 Unknown Rx cloNIDine [Catapres] 0.1 mg PO BID PRN #20 tablet 02/28/21 Unknown Rx Allergies Allergy/AdvReac Type Severity Reaction Status Date / Time No Known Allergies Allergy Verified 05/27/22 08:24 ED Review of Systems ROS: Stated complaint: SOB Other details as noted in HPI Comment: All other systems reviewed and negative ED Past Medical Hx - Past Medical History Previous Medical History?: Yes Hx Hypertension: Yes Hx CVA: Yes (TIA) Hx Diabetes: Yes Hx Renal Disease: Yes (M, W, F) Hx COPD: Yes Hx Dementia: Yes - Surgical History Past Surgical History?: Yes Additional Surgical History: DIAYSIS FISTULA LEFT UPPER ARM - Social History Smoking Status: Current Every Day Smoker Substance Use Type: None - Medications Home Medications: Home Medications Medication Instructions Recorded Confirmed Last Taken Type Vit B12/Levomefolate/Vit B6/B2 1 each PO DAILY 08/26/18 05/27/22 Unknown History [Cerefolin Caplet] Aspirin [Aspirin BABY CHEW TAB] 81 mg PO QDAY #30 tab.chew 08/28/18 05/27/22 Unknown Rx AtorvaSTATin [Lipitor] 40 mg PO QHS #30 tablet 08/28/18 05/27/22 Unknown Rx Pantoprazole [Protonix TAB] 40 mg PO QDAY #30 tablet 08/28/18 05/27/22 Unknown Rx amLODIPine 10 mg PO QDAY #30 tablet 08/28/18 05/27/22 Unknown Rx methOCARBAMOL [Robaxin TAB] 500 mg PO Q8HR PRN #20 tablet 09/28/19 05/27/22 Unknown Rx Meclizine [Antivert] 25 mg PO TID PRN #20 tablet 10/02/20 05/27/22 Unknown Rx cloNIDine [Catapres] 0.1 mg PO BID PRN #20 tablet 02/28/21 05/27/22 Unknown Rx ED Physical Exam - General Limitations: No Limitations - Other Other exam information: General: Mild respiratory distress Head: Atraumatic Eyes: normal appearance ENT: Moist mucous membranes Neck: Normal appearance, no midline tenderness Chest: Mild tachypnea, no accessory muscle use, bilateral crackles CV: Regular rate and rhythm, left upper arm AV fistula positive thrill Abdomen: Soft, normal bowel sounds, nontender, nondistended, no rebound or guarding Back: Normal inspection Extremity: Normal inspection, full range of motion, no calf tenderness or leg edema Neuro: Alert , no facial asymmetry, speech clear Psych: Appropriate behavior Skin: No rash ED Course Vital Signs 07/14/22 07/14/22 07/14/22 06:10 06:51 08:48 Temperature 98 F Pulse Rate 75 87 68 Respiratory 20 24 18 Rate Blood Pressure 203/111 Blood Pressure 179/87 [Right] O2 Sat by Pulse 100 96 100 Oximetry 07/14/22 10:16 Temperature Pulse Rate 65 Respiratory Rate Blood Pressure 166/83 Blood Pressure [Right] O2 Sat by Pulse Oximetry - Reevaluation(s) Reevaluation #1: 07/14/22 08:06 BP currently 195/88 after receiving IV Lasix and Nitropaste. Patient currently on BiPAP acute respiratory failure secondary to pulmonary edema - Consultations Consultation #2: 07/14/22 08:13 case d/w DR Corado who will arrange for dialysis today ED Medical Decision Making - Lab Data Result diagrams: 07/14/22 06:38 07/14/22 06:38 Lab Results 07/14/22 07/14/22 07/14/22 Range/Units 06:38 06:38 06:38 WBC 9.2 (4.5-11.0) K/mm3 RBC 4.06 (3.65-5.03) M/mm3 Hgb 12.0 (10.1-14.3) gm/dl Hct 37.9 (30.3-42.9) % MCV 93 (79-97) fl MCH 30 (28-32) pg MCHC 32 (30-34) % RDW 18.1 H (13.2-15.2) % Plt Count 146 (140-440) K/mm3 Lymph % (Auto) 14.6 (13.4-35.0) % [place] % (Auto) 3.5 (0.0-7.3) % Eos % (Auto) 11.5 H (0.0-4.3) % Baso % (Auto) 1.0 (0.0-1.8) % Lymph # (Auto) 1.3 (1.2-5.4) K/mm3 [place] # (Auto) 0.3 (0.0-0.8) K/mm3 Eos # (Auto) 1.1 H (0.0-0.4) K/mm3 Baso # (Auto) 0.1 (0.0-0.1) K/mm3 Seg Neutrophils % 69.4 (40.0-70.0) % Seg Neutrophils # 6.4 (1.8-7.7) K/mm3 PT 12.9 (12.2-14.9) Sec. INR 0.88 (0.87-1.13) Sodium 138 (137-145) mmol/L Potassium 4.0 (3.6-5.0) mmol/L Chloride 95.2 L (98-107) mmol/L Carbon Dioxide 26 (22-30) mmol/L Anion Gap 21 mmol/L BUN 45 H (7-17) mg/dL Creatinine 8.0 H (0.6-1.2) mg/dL Estimated GFR 6 ml/min BUN/Creatinine Ratio 6 % Glucose 234 H (65-100) mg/dL Calcium 10.2 (8.4-10.2) mg/dL Total Bilirubin 0.30 (0.1-1.2) mg/dL AST 54 H (5-40) units/L ALT 56 (7-56) units/L Alkaline Phosphatase 89 (35-129) units/L Total Protein 6.9 (6.3-8.2) g/dL Albumin 4.3 (3.9-5) g/dL Albumin/Globulin Ratio 1.7 % - EKG Data -: EKG Interpreted by Me EKG shows normal: sinus rhythm, ST-T waves (Lateral T wave inversions, LVH, no STEMI) Rate: normal - EKG Data When compared to previous EKG there are: no significant change - Radiology Data Radiology results: report reviewed XR chest 1V ap INDICATION / CLINICAL INFORMATION: sob. COMPARISON: 05/27/2022 FINDINGS: SUPPORT DEVICES: None. HEART /PULMONARY VASCULATURE: Heart is enlarged with congestion of pulmonary vasculature. LUNGS / PLEURA: There are diffuse increased interstitial opacities, may reflect edema. Superimposed right basilar airspace consolidation. Trace pleural effusions are suspected. ADDITIONAL FINDINGS: No significant additional findings. IMPRESSION: Right basilar pneumonia. Component of volume overload with pulmonary edema is likely present. - Medical Decision Making 71-year-old female presents to the hospital with shortness of breath and hypoxia. Patient likely has acute respiratory failure with hypoxia secondary to pulmonary edema. Radiologist read noted with suspicion for right basilar infiltrate however, patient does not have fever or leukocytosis. Patient is due for dialysis today and states compliant. Patient also presents with elevated blood pressure. Patient treated with Nitropaste and Lasix in addition to BiPAP support. Mild troponin elevation noted likely secondary to underlying renal failure and is improved compared to previous on record. Critical Care Time: Yes Critical care time in (mins) excluding proc time.: 45 Critical care attestation.: If time is entered above; I have spent that time in minutes in the direct care o f this critically ill patient, excluding procedure time. Critical Care Time: 45 Minutes of critical care time excluding procedures were used in the care of the patient. I came immediately to the bedside upon patient's arrival. I discussed treatment plan with the nursing team members. I reviewed electronic record. Patient required multiple interventions and reassessments.. Patient required BiPAP support and oxygen for hypoxia and respiratory distress. I spoke to consultants and admitting hospitalist for collaborative care ED Disposition Clinical Impression: Acute respiratory failure with hypoxia, Accelerated hypertension, Pulmonary edema, ESRD (end stage renal disease) on dialysis Disposition: ADMITTED INPATIENT Is pt being admited?: Yes Condition: Stable Instructions: Pulmonary Edema (ED), Hypertension (ED) Time of Disposition: 08:10 (Dr Chow/hosptialist)
[2022-07-14 07:05] LABS: Basophils # (Auto) 0.1 K/mm3 (0.0-0.1); Eosinophils # (Auto) 1.1 K/mm3 (0.0-0.4); Eosinophils % (Auto) 11.5 % (0.0-4.3); Hematocrit 37.9 % (30.3-42.9); Lymphocytes # (Auto) 1.3 K/mm3 (1.2-5.4); Lymphocytes % (Auto) 14.6 % (13.4-35.0); Mean Corpuscular HGB Conc 32 % (30-34); Mean Corpuscular Volume 93 fl (79-97); Monocytes # (Auto) 0.3 K/mm3 (0.0-0.8); Monocytes % (Auto) 3.5 % (0.0-7.3); Platelet Count 146 K/mm3 (140-440); Red Blood Count 4.06 M/mm3 (3.65-5.03); Red Cell Distribution Width 18.1 % (13.2-15.2)
[2022-07-14 07:20] LABS: INR 0.88 (0.87-1.13)
--- NOTE | 2022-07-14 07:51 | XRay Report ---
XR chest 1V ap INDICATION / CLINICAL INFORMATION: sob. COMPARISON: 05/27/2022 FINDINGS: SUPPORT DEVICES: None. HEART /PULMONARY VASCULATURE: Heart is enlarged with congestion of pulmonary vasculature. LUNGS / PLEURA: There are diffuse increased interstitial opacities, may reflect edema. Superimposed r ight basilar airspace consolidation. Trace pleural effusions are suspected. ADDITIONAL FINDINGS: No significant additional findings. IMPRESSION: Right basilar pneumonia. Component of volume overload with pulmonary edema is likely present. Signer Name: Cipriano Yeung MD Signed: 07/14/2022 7:46 AM Workstation Name: [id number]
[2022-07-14 07:59] LABS: Alanine Aminotransferase 56 units/L (7-56); Albumin 4.3 g/dL (3.9-5); Blood Urea Nitrogen 45 mg/dL (7-17); Calcium 10.2 mg/dL (8.4-10.2); Hemolysis Index 57
[2022-07-14 08:01] LABS: BUN/Creatinine Ratio 6
[2022-07-14] MEDS ORDERED: IBUPROFEN 600 MG TAB PO PRN (08:14)
[2022-07-14] MEDS ORDERED: MORPHINE 2 MG/1 ML INJ IV PRN (08:14)
[2022-07-14] MEDS ORDERED: ONDANSETRON 4 MG/2 ML INJ IV PRN (08:32)
[2022-07-14] MEDS ORDERED: NALOXONE 0.4 MG/1 ML INJ IV PRN (08:32)
[2022-07-14] MEDS ORDERED: ALBUTEROL 2.5 MG/3 ML NEBU IH PRN (08:32)
[2022-07-14] MEDS ORDERED: ACETAMINOPHEN 325 MG TAB PO PRN (08:32)
[2022-07-14] MEDS ORDERED: METOCLOPRAMIDE 10 MG/2 ML INJ IV PRN ×2 (08:32→09:14)
--- NOTE | 2022-07-14 08:32 | History and Physical Report ---
History of Present Illness Date of examination: 07/14/22 Date of admission: 07/14/22 Chief complaint: shortness of breath History of present illness: 71-year-old female with a past medical history of hypertension, diabetes, end- stage renal disease on dialysis Friday, Friday, and Friday presents to the hospital planing of shortness of breath upon waking this morning. Dyspnea is worse with lying supine and with exertion. Patient found to be hypoxic with a room air saturation of 82% upon EMS arrival. Occasional cough reported. Patient denies fever or chest pain. Patient was admitted here in May with similar symptoms secondary to pulmonary edema. At that May admission it was due to not compliance with her dialysis but this time patient reports compliance with her dialysis. Patient is not vaccinated for COVID but tested negative during May admission. Chief Client Officer Dr. Bryant She was also noted to have systolic blood pressure in the 200s when she came in at this time is down to 188 on my examination. She denies any chest pain nausea vomiting she denies any change in her medication and also did speak with her son who confirms that she has been compliant with her dialysis. Past History Past Medical History: ESRD, hypertension, hyperlipidemia, other (TIA) Past Surgical History: Other (AV fistula left upper arm) Social history: smoking, AND/DNR-allow natural (Confirmed by the son also small wellness the patient). denies: IV drug use Family history: no significant family history Medications and Allergies Allergies Allergy/AdvReac Type Severity Reaction Status Date / Time No Known Allergies Allergy Verified 05/27/22 08:24 Home Medications Medication Instructions Recorded Confirmed Last Taken Type Vit B12/Levomefolate/Vit B6/B2 1 each PO DAILY 08/26/18 05/27/22 Unknown History [Cerefolin Caplet] Aspirin [Aspirin BABY CHEW TAB] 81 mg PO QDAY #30 tab.chew 08/28/18 05/27/22 Unknown Rx AtorvaSTATin [Lipitor] 40 mg PO QHS #30 tablet 08/28/18 05/27/22 Unknown Rx Pantoprazole [Protonix TAB] 40 mg PO QDAY #30 tablet 08/28/18 05/27/22 Unknown Rx amLODIPine 10 mg PO QDAY #30 tablet 08/28/18 05/27/22 Unknown Rx methOCARBAMOL [Robaxin TAB] 500 mg PO Q8HR PRN #20 tablet 09/28/19 05/27/22 Unknown Rx Meclizine [Antivert] 25 mg PO TID PRN #20 tablet 10/02/20 05/27/22 Unknown Rx cloNIDine [Catapres] 0.1 mg PO BID PRN #20 tablet 02/28/21 05/27/22 Unknown Rx Active Meds: Active Medications Ibuprofen (Ibuprofen 600 Mg Tab) 600 mg PO Q6H PRN PRN Reason: Pain, Mild (1-3) Morphine Sulfate (Morphine 2 Mg/1 Ml Inj) 2 mg IV Q4H PRN PRN Reason: Pain, Moderate (4-6) Sodium Chloride (Sodium Chloride 0.9% 10 Ml Flush Syringe) 10 ml IV BID [place] Sodium Chloride (Sodium Chloride 0.9% 10 Ml Flush Syringe) 10 ml IV PRN PRN PRN Reason: LINE FLUSH Review of Systems All systems: negative Constitutional: fatigue, weakness, lethargy, no weight loss, no weight gain, no fever, no chills, no sweats, no night sweats Ears, nose, mouth and throat: no ear pain, no tinnitis, no nasal congestion, no mouth pain, no hoarseness, no swelling in mouth, no vertigo, no pain front of neck Cardiovascular: orthopnea, shortness of breath, no chest pain, no palpitations Respiratory: shortness of breath Gastrointestinal: no abdominal pain, no nausea, no vomiting, no diarrhea, no constipation, no change in bowel habits, no hematemesis, no coffee ground emesis, no melena, no loss of appetite, no early satiety Genitourinary Female: no pelvic pain, no menorrhagia, no urinary frequency, no stress incontinence Menstruation: premenarcheal, ammenorrhea on BC Musculoskeletal: no neck pain, no shooting arm pain, no low back pain, no leg numbness/tingling, no muscle cramps Integumentary: no sores, no wounds, no bullae, no lesions, no unusual bruising Neurological: no head injury, no paralysis, no parathesias, no headaches, no change in speech, no change in mentation, no double vision, no burning pain Psychiatric: no memory loss, no hypersomnia, no change in appetite, no hallucinations, no hopelessness, no confusion, no mood swings Endocrine: no heat intolerance, no polyphagia, no polydipsia, no deepening of the voice, no thyroid mass, no high blood sugars Hematologic/Lymphatic: no lymphedema Allergic/Immunologic: no urticaria, no allergic rhinitis Exam - Physical Exam Narrative exam: VITAL SIGNS: Reviewed. GENERAL: The patient appears cachectic in moderate respiratory distress on BiPAP, Vital signs as documented. HEAD: No signs of head trauma. EYES: Pupils are equal. Extraocular motions intact. EARS: Hearing grossly intact. MOUTH: Oropharynx is normal. NECK: No adenopathy, no JVD. CHEST: Chest with crackles breath sounds bilaterally. No wheezes, rales, or rhonchi. CARDIAC: Regular rate and rhythm. S1 and S2, without murmurs, gallops, or rubs. VASCULAR: No Edema. Peripheral pulses normal and equal in all extremities. ABDOMEN: Soft, non tender and non distended. No rebound or guarding, and no masses palpated. Bowel Sounds normal. MUSCULOSKELETAL: Good range of motion of all major joints. Extremities without clubbing, cyanosis or edema. NEUROLOGIC EXAM: Alert and oriented x 3 No focal sensory or strength deficits. Speech normal. Follows commands. PSYCHIATRIC: Mood normal. SKIN: detail exam as documented in skin assessment - Constitutional Vitals: Temp Pulse Resp BP Pulse Ox 98 F 87 24 203/111 96 07/14/22 06:10 07/14/22 06:51 07/14/22 06:51 07/14/22 06:10 07/14/22 06:51 HEART Score - HEART Score Troponin: Troponin T 0.103 ng/mL (0.00-0.029) H* 07/14/22 06:38 Results - Labs CBC & Chem 7: 07/14/22 06:38 07/14/22 06:38 Labs: Laboratory Last Values WBC 9.2 K/mm3 (4.5-11.0) 07/14/22 06:38 RBC 4.06 M/mm3 (3.65-5.03) 07/14/22 06:38 Hgb 12.0 gm/dl (10.1-14.3) 07/14/22 06:38 Hct 37.9 % (30.3-42.9) 07/14/22 06:38 MCV 93 fl (79-97) 07/14/22 06:38 MCH 30 pg (28-32) 07/14/22 06:38 MCHC 32 % (30-34) 07/14/22 06:38 RDW 18.1 % (13.2-15.2) H 07/14/22 06:38 Plt Count 146 K/mm3 (140-440) 07/14/22 06:38 Lymph % (Auto) 14.6 % (13.4-35.0) 07/14/22 06:38 [place] % (Auto) 3.5 % (0.0-7.3) 07/14/22 06:38 Eos % (Auto) 11.5 % (0.0-4.3) H 07/14/22 06:38 Baso % (Auto) 1.0 % (0.0-1.8) 07/14/22 06:38 Lymph # (Auto) 1.3 K/mm3 (1.2-5.4) 07/14/22 06:38 [place] # (Auto) 0.3 K/mm3 (0.0-0.8) 07/14/22 06:38 Eos # (Auto) 1.1 K/mm3 (0.0-0.4) H 07/14/22 06:38 Baso # (Auto) 0.1 K/mm3 (0.0-0.1) 07/14/22 06:38 Seg Neutrophils % 69.4 % (40.0-70.0) 07/14/22 06:38 Seg Neutrophils # 6.4 K/mm3 (1.8-7.7) 07/14/22 06:38 PT 12.9 Sec. (12.2-14.9) 07/14/22 06:38 INR 0.88 (0.87-1.13) 07/14/22 06:38 Sodium 138 mmol/L (137-145) 07/14/22 06:38 Potassium 4.0 mmol/L (3.6-5.0) 07/14/22 06:38 Chloride 95.2 mmol/L (98-107) L 07/14/22 06:38 Carbon Dioxide 26 mmol/L (22-30) 07/14/22 06:38 Anion Gap 21 mmol/L 07/14/22 06:38 BUN 45 mg/dL (7-17) H 07/14/22 06:38 Creatinine 8.0 mg/dL (0.6-1.2) H 07/14/22 06:38 Estimated GFR 6 ml/min 07/14/22 06:38 BUN/Creatinine Ratio 6 % 07/14/22 06:38 Glucose 234 mg/dL (65-100) H 07/14/22 06:38 Calcium 10.2 mg/dL (8.4-10.2) 07/14/22 06:38 Total Bilirubin 0.30 mg/dL (0.1-1.2) 07/14/22 06:38 AST 54 units/L (5-40) H 07/14/22 06:38 ALT 56 units/L (7-56) 07/14/22 06:38 Alkaline Phosphatase 89 units/L (35-129) 07/14/22 06:38 Troponin T 0.103 ng/mL (0.00-0.029) H* 07/14/22 06:38 NT-Pro-B Natriuret Pep > 46879 pg/mL (0-900) H 07/14/22 06:38 Total Protein 6.9 g/dL (6.3-8.2) 07/14/22 06:38 Albumin 4.3 g/dL (3.9-5) 07/14/22 06:38 Albumin/Globulin Ratio 1.7 % 07/14/22 06:38 Assessment and Plan Assessment and plan: 71-year-old female with a past medical history of hypertension, diabetes, end- stage renal disease on dialysis Friday, Friday, and Friday presents to the hospital planing of shortness of breath upon waking this morning. Dyspnea is worse with lying supine and with exertion. Patient found to be hypoxic with a room air saturation of 82% upon EMS arrival. Occasional cough reported. Patient denies fever or chest pain. Patient was admitted here in May with similar symptoms secondary to pulmonary edema. At that May admission it was du e to not compliance with her dialysis but this time patient reports compliance with her dialysis. Patient is not vaccinated for COVID but tested negative during May admission. Chief Client Officer Dr. Bryant She was also noted to have systolic blood pressure in the 200s when she came in at this time is down to 188 on my examination. She denies any chest pain nausea vomiting she denies any change in her medication and also did speak with her son who confirms that she has been compliant with her dialysis. Randy Hinkle patients son and legal next of Kin, Chest x-ray Right basilar pneumonia. Component of volume overload with pulmonary edema is likely present. Acute Hypoxic Respiratory failure ESRD with Volume overload Hypertensive emergency Pulmonary Edema with possible Flash episode Systemic Inflammatory Response Syndrome without Organ dysfunction doubt Sepsis Possible Right Basilar Pneumonia However no Fever or WBC Type 2 NSTEMI Diabetes Mellitus, last A1C 7.8 (1) Acute respiratory failure with hypoxia Current Visit: Yes Status: Acute Plan to address problem: Secondary to volume overload and pulmonary vascular congestion Needs emergent hemodialysis and ultrafiltration No hemodialysis for 1 week Continue BiPAP wean as tolerated Patient can safely be discharged to telemetry if no improvement seen by pulm primary admitted to IMCU status (2) End-stage renal disease on hemodialysis Current Visit: Yes Status: Acute Plan to address problem: Emergent hemodialysis for increased ultrafiltration Chief Client Officer consulted (3) hypertensive emergency Current Visit: No Status: Acute Plan to address problem: Blood pressure medications adjusted (4) systemic inflammatory response syndrome with possible underlying right bibasilar pneumonia and a nonvaccinated patient. May patient was negative for COVID presented with the same symptomatology. We will start on empiric antibiotics while awaiting reexamination following dialysis. Doubt sepsis at this time (5) T2DM (type 2 diabetes mellitus) Current Visit: Yes Status: Chronic Qualifiers: Diabetes mellitus exterminator helper insulin use: unspecified exterminator helper insulin use status Plan to address problem: Coverage for now A1c 7.8 during last admission we will likely discharge him metformin or glipizide. Counseling and education provided (6) Volume overload Current Visit: Yes Status: Acute Plan to address problem: Severe volume overload Secondary to noncompliance and not going to dialysis for 1 week Patient counseled about noncompliance (7) CVA, old, alterations of sensations Current Visit: Yes Status: Chronic Plan to address problem: Supportive care and PT if necessary (8) DVT prophylaxis Current Visit: Yes Status: Acute Plan to address problem: On heparin and GI prophylaxis (9) Advance care planning//tobacco cessation counseling patient reports that she quit smoking Current Visit: Yes Status: Acute Plan to address problem: Disease education conducted, care plan discussed, diagnosis discussed, prognosis discussed, patient is full code. Patient acknowledged understanding and agreement with care plan. +30 minutes. Critical care time 90 minutes including care coordination. Advance Directives: Yes (DNR) Plan of care discussed with patient/family: Yes
[2022-07-14] MEDS ORDERED: MECLIZINE 25 MG TAB PO PRN (08:38)
[2022-07-14] MEDS ORDERED: cloNIDine 0.1 MG TAB PO PRN (08:38)
[2022-07-14] MEDS ORDERED: DEXTROSE 50% IN WATER (25GM) 50 ML SYRINGE IV PRN (08:42)
[2022-07-14 08:50] LABS: Chol/HDL Ratio 2.65 %; HDL Cholesterol 82 mg/dL (40-59); LDL Cholesterol,Direct 122 mg/dL (50-130)
[2022-07-14] MEDS ORDERED: SODIUM CHLORIDE 0.9% 100 ML IV PRN (09:14)
[2022-07-14] MEDS ORDERED: FAMOTIDINE 20 MG TAB PO SCH (10:00)
[2022-07-14] MEDS ORDERED: AMOXICILLIN/K CLAV 875/125MG TAB PO ONE (10:00)
[2022-07-14] MEDS: amLODIPine 10 MG TAB PO SCH (10:16)
[2022-07-14] MEDS: FAMOTIDINE 10 MG TAB PO SCH ×2 (10:16→21:07)
[2022-07-14] MEDS: ASPIRIN 81 MG TAB CHEW PO SCH (10:16)
[2022-07-14 14:02] LABS: Hepatitis B Surface Antigen Non-Reactive (Negative); Hepatitis C Virus Antibody Non-Reactive (NonReactive)
[2022-07-14] MEDS: LISINOPRIL 40 MG TAB PO SCH (17:15)
[2022-07-14] MEDS: INSULIN LISPRO 100 UNIT/ML SUB-Q SCH ×3 (17:15→22:45)
[2022-07-14] MEDS: IPRATROPIUM/ALBUTEROL SULFATE 3 ML AMPUL.NEB IH SCH ×2 (17:15→21:03)
[2022-07-15] MEDS: IPRATROPIUM/ALBUTEROL SULFATE 3 ML AMPUL.NEB IH SCH ×3 (04:15→14:43)
[2022-07-15 05:36] LABS: Basophils # (Auto) 0.1 K/mm3 (0.0-0.1); Basophils % (Auto) 1.2 % (0.0-1.8); Eosinophils # (Auto) 0.8 K/mm3 (0.0-0.4); Eosinophils % (Auto) 10.8 % (0.0-4.3); Hematocrit 36.9 % (30.3-42.9); Hemoglobin 11.8 gm/dl (10.1-14.3); Lymphocytes # (Auto) 2.2 K/mm3 (1.2-5.4); Lymphocytes % (Auto) 28.1 % (13.4-35.0); Mean Corpuscular HGB Conc 32 % (30-34); Mean Corpuscular Volume 93 fl (79-97); Monocytes # (Auto) 0.5 K/mm3 (0.0-0.8); Monocytes % (Auto) 5.9 % (0.0-7.3); Platelet Count 133 K/mm3 (140-440); Red Blood Count 3.96 M/mm3 (3.65-5.03); Red Cell Distribution Width 17.7 % (13.2-15.2)
[2022-07-15 05:59] LABS: Albumin 4.1 g/dL (3.9-5); Calcium 9.6 mg/dL (8.4-10.2)
[2022-07-15] MEDS: INSULIN LISPRO 100 UNIT/ML SUB-Q SCH ×2 (07:30→11:30)
--- NOTE | 2022-07-15 07:50 | Consultation ---
History of Present Illness - Reason for Consult Consult date: 07/15/22 end stage renal disease (Hypertensive emergency), other (Hypertensive emergency) Requesting physician: ALFREDA ORTEGA - History of Present Illness 71-year-old lady with a history of diabetes mellitus, hypertension complicated by end-stage renal disease on hemodialysis on a Friday, Friday and Friday schedule. Patient was hospitalized at this institution last month with fluid overload secondary to missed dialysis. She had missed dialysis for 1 week. Patient states she is now compliant with her dialysis treatments. She started feeling shortness short of breath on awakening the morning of presentation. It was worse with exertion and on assuming a supine position. She admits associated chest pain, nausea or vomiting. She denies any dizziness or diaphoresis. She admits to occasional cough which is nonproductive. On account of her worsening symptoms she presented to the emergency room and on initial evaluation, oxygen saturation was 82%. Blood pressure was also quite elevated w ith systolic in the 200s. My colleague Dr. Mccarthy was consulted and ordered dialysis emergently yesterday. On further inquiry, she admits to a fall on Friday the day prior to admission while walking to the bathroom. She believes she lost her balance. She denies any dizziness Past History Past Medical History: ESRD, hypertension, hyperlipidemia, other (TIA) Past Surgical History: Other (AV fistula left upper arm) Social history: smoking, AND/DNR-allow natural (Confirmed by the son also small wellness the patient). denies: IV drug use Family history: diabetes, hypertension Medications and Allergies Allergies Allergy/AdvReac Type Severity Reaction Status Date / Time No Known Allergies Allergy Verified 05/27/22 08:24 Home Medications Medication Instructions Recorded Confirmed Last Taken Type Vit B12/Levomefolate/Vit B6/B2 1 each PO DAILY 08/26/18 05/27/22 Unknown History [Cerefolin Caplet] Aspirin [Aspirin BABY CHEW TAB] 81 mg PO QDAY #30 tab.chew 08/28/18 05/27/22 Un known Rx AtorvaSTATin [Lipitor] 40 mg PO QHS #30 tablet 08/28/18 05/27/22 Unknown Rx Pantoprazole [Protonix TAB] 40 mg PO QDAY #30 tablet 08/28/18 05/27/22 Unknown Rx amLODIPine 10 mg PO QDAY #30 tablet 08/28/18 05/27/22 Unknown Rx methOCARBAMOL [Robaxin TAB] 500 mg PO Q8HR PRN #20 tablet 09/28/19 05/27/22 Unknown Rx Meclizine [Antivert] 25 mg PO TID PRN #20 tablet 10/02/20 05/27/22 Unknown Rx cloNIDine [Catapres] 0.1 mg PO BID PRN #20 tablet 02/28/21 05/27/22 Unknown Rx Active Meds: Active Medications Acetaminophen (Acetaminophen 325 Mg Tab) 650 mg PO Q4H PRN PRN Reason: Pain MILD(1-3)/Fever >100.5/NARANJO Albuterol (Albuterol 2.5 Mg/3 Ml Nebu) 2.5 mg IH Q4H PRN PRN Reason: Shortness Of Breath Albuterol/Ipratropium (Ipratropium/Albuterol Sulfate 3 Ml Ampul.Neb) 1 ampul IH Q6HRT [facility] Last Admin: 07/15/22 04:15 Dose: Not Given Amlodipine Besylate (Amlodipine 10 Mg Tab) 10 mg PO QDAY [facility] Last Admin: 07/14/22 10:16 Dose: 10 mg Aspirin (Aspirin 81 Mg Tab Chew) 81 mg PO QDAY [facility] Last Admin: 07/14/22 10:16 Dose: 81 mg Atorvastatin Calcium (Atorvastatin 40 Mg Tab) 40 mg PO QHS [facility] Last Admin: 07/14/22 21:07 Dose: 40 mg Clonidine HCl (Clonidine 0.1 Mg Tab) 0.1 mg PO BID PRN PRN Reason: Blood pressure > 180/100 Dextrose (Dextrose 50% In Water (25gm) 50 Ml Syringe) 50 ml IV Q30MIN PRN; Protocol PRN Reason: Hypoglycemia Famotidine (Famotidine 10 Mg Tab) 10 mg PO BID [facility] Last Admin: 07/14/22 21:07 Dose: 10 mg Sodium Chloride (Nacl 0.9%) 100 mls @ 999 mls/hr IV LUZMARIA PRN PRN Reason: Hypotension Insulin Human Lispro (Insulin Lispro 100 Unit/Ml) 0 unit SUB-Q ACHS [facility]; Protocol Last Admin: 07/14/22 22:45 Dose: Not Given Lisinopril (Lisinopril 40 Mg Tab) 40 mg PO QDAY [facility] Last Admin: 07/14/22 17:15 Dose: Not Given Meclizine HCl (Meclizine 25 Mg Tab) 25 mg PO TID PRN PRN Reason: Vertigo Methocarbamol (Methocarbamol 500 Mg Tab) 500 mg PO Q8H PRN PRN Reason: Muscle Spasm Metoclopramide HCl (Metoclopramide 10 Mg/2 Ml Inj) 2.5 mg IV Q6H PRN PRN Reason: Nausea And Vomiting Morphine Sulfate (Morphine 2 Mg/1 Ml Inj) 2 mg IV Q4H PRN PRN Reason: Pain, Moderate (4-6) Naloxone HCl (Naloxone 0.4 Mg/1 Ml Inj) 0.1 mg IV Q2MIN PRN PRN Reason: Res Rate </= 8 or 02 SAT < 92% Ondansetron HCl (Ondansetron 4 Mg/2 Ml Inj) 4 mg IV Q4H PRN PRN Reason: Nausea And Vomiting Last Admin: 07/14/22 11:45 Dose: 4 mg Sodium Chloride (Sodium Chloride 0.9% 10 Ml Flush Syringe) 10 ml IV BID [facility]ER[facility] Last Admin: 07/14/22 21:07 Dose: 10 ml Sodium Chloride (Sodium Chloride 0.9% 10 Ml Flush Syringe) 10 ml IV PRN PRN PRN Reason: LINE FLUSH Review of Systems All systems: negative (Constitutional: no fever or chills. No anorexia or weight loss. HEENT: No sore throat or sinus drainage no hearing or vision impairment . Cardiovascular: See history of present illness. Denies any lower extremity swelling.. Respiratory: No cough, sputum, shortness of breath, hemo) Gastrointestinal: nausea, vomiting, no abdominal pain, no diarrhea, no constipation, no hematemesis, no melena, no hematochezia Genitourinary Female: no dysuria, no urinary frequency, no hematuria Musculoskeletal: no low back pain, no hot joints Integumentary: no rash, no pruritis Neurological: no weakness, no numbness, no tingling, no headaches Psychiatric: no anxiety, no depression Endocrine: no cold intolerance, no heat intolerance Hematologic/Lymphatic: no easy bruising, no easy bleeding Exam - Vital Signs Vital signs: Vital Signs Temp Pulse Resp BP Pulse Ox 98 F 75 20 203/111 100 07/14/22 06:10 07/14/22 06:10 07/14/22 06:10 07/14/22 06:10 07/14/22 06:10 - Physical Exam Narrative exam: Elderly -[place] female lying in bed in no acute distress HEENT: NCAT, pink oral mucous membrane Neck: Supple, no venous distention CVS: S1S2 RRR with no murmur, rub or gallop Chest: Clear to auscultation but breath sounds diminished in the left lung field Abdomen: Protuberant, soft, nontender, no organomegaly, bowel sounds are present Extremities: No edema Genitourinary deferred Neuro: Awake, alert no focal deficits Results - Lab Results 07/15/22 05:09 07/15/22 05:09 Most recent lab results Calcium 9.6 mg/dL (8.4-10.2) 07/15/22 05:09 Assessment and Plan - Patient Problems (1) Hypertensive emergency Current Visit: Yes Status: Acute Plan to address problem: Severe hypertension with acute pulmonary edema. Elevated blood pressure probably volume related. Improved with fluid removal on dialysis. Resume oral antihypertensive medications and follow-up blood pressure (2) Acute respiratory failure with hypoxia Current Visit: Yes Status: Acute Plan to address problem: Acute pulmonary edema secondary to fluid overload with severe hypertension. Respiratory status improved following fluid removal on dialysis. (3) End-stage renal disease on hemodialysis Current Visit: No Status: Acute Plan to address problem: Patient had an emergent ultrafiltration yesterday. Will need a short dialysis treatment today prior to discharge. Discussed with primary attending (4) History of CVA (cerebrovascular accident) Current Visit: No Status: Chronic Plan to address problem: Continue antiplatelet agents and follow-up (5) Hypertensive chronic kidney disease with stage 5 chronic kidney disease or end stage renal disease Current Visit: No Status: Chronic Plan to address problem: Follow-up blood pressure following fluid removal on dialysis. (6) Type 2 diabetes mellitus with chronic kidney disease Current Visit: No Status: Chronic Plan to address problem: Blood sugar management by primary attending
[2022-07-15] MEDS ORDERED: SODIUM CHLORIDE 0.9% 100 ML IV PRN (08:00)
--- NOTE | 2022-07-15 10:37 | Progress Note ---
Assessment and Plan Assessment and plan: 71-year-old female with a past medical history of hypertension, diabetes, end- stage renal disease on dialysis Friday, Friday, and Friday presents to the hospital planing of shortness of breath. Patient found to be hypoxic with a room air saturation of 82% upon EMS arrival. Patient was admitted here in May with similar symptoms secondary to pulmonary edema. At that May admission it was due to not compliance with her dialysis but this time patient reports compliance with her dialysis. Patient is not vaccinated for COVID but tested negative during May admission. Lineman Apprentice Dr. Bryant She was also noted to have systolic blood pressure in the 200s. Chest x-ray revealed right basilar pneumonia. Patient was admitted with diagnosis below: Acute Hypoxic Respiratory failure ESRD with Volume overload Hypertensive emergency Pulmonary Edema with possible Flash episode SIRS. Right Basilar Pneumonia Type 2 NSTEMI Diabetes Mellitus, last A1C 7.8 07/15/2022. History Interval history: No new issues overnight Hospitalist Physical - Constitutional Vitals: Temp Pulse Resp BP Pulse Ox 98.1 F 60 18 137/65 97 07/15/22 08:04 07/15/22 09:00 07/15/22 09:00 07/15/22 08:04 07/15/22 09:37 General appearance: Present: no acute distress, well-nourished - EENT Eyes: Present: PERRL, EOM intact ENT: hearing intact, clear oral mucosa, dentition normal - Neck Neck: Present: supple, normal ROM - Respiratory Respiratory effort: normal Respiratory: bilateral: CTA - Cardiovascular Rhythm: regular Heart Sounds: Present: S1 & S2. Absent: gallop, rub - Extremities Extremities: no ischemia, No edema, Full ROM - Abdominal General gastrointestinal: soft, non-tender, non-distended, normal bowel sounds - Integumentary Integumentary: Present: clear, warm, dry - Neurologic Neurologic: CNII-XII intact, moves all extremities HEART Score - HEART Score Troponin: Troponin T 0.103 ng/mL (0.00-0.029) H* 07/14/22 06:38 Results - Labs CBC & Chem 7: 07/15/22 05:09 07/15/22 05:09 Labs: Laboratory Last Values WBC 7.8 K/mm3 (4.5-11.0) 07/15/22 05:09 RBC 3.96 M/mm3 (3.65-5.03) 07/15/22 05:09 Hgb 11.8 gm/dl (10.1-14.3) 07/15/22 05:09 Hct 36.9 % (30.3-42.9) 07/15/22 05:09 MCV 93 fl (79-97) 07/15/22 05:09 MCH 30 pg (28-32) 07/15/22 05:09 MCHC 32 % (30-34) 07/15/22 05:09 RDW 17.7 % (13.2-15.2) H 07/15/22 05:09 Plt Count 133 K/mm3 (140-440) L 07/15/22 05:09 Lymph % (Auto) 28.1 % (13.4-35.0) 07/15/22 05:09 Carson % (Auto) 5.9 % (0.0-7.3) 07/15/22 05:09 Eos % (Auto) 10.8 % (0.0-4.3) H 07/15/22 05:09 Baso % (Auto) 1.2 % (0.0-1.8) 07/15/22 05:09 Lymph # (Auto) 2.2 K/mm3 (1.2-5.4) 07/15/22 05:09 Carson # (Auto) 0.5 K/mm3 (0.0-0.8) 07/15/22 05:09 Eos # (Auto) 0.8 K/mm3 (0.0-0.4) H 07/15/22 05:09 Baso # (Auto) 0.1 K/mm3 (0.0-0.1) 07/15/22 05:09 Seg Neutrophils % 54.0 % (40.0-70.0) 07/15/22 05:09 Seg Neutrophils # 4.2 K/mm3 (1.8-7.7) 07/15/22 05:09 PT 12.9 Sec. (12.2-14.9) 07/14/22 06:38 INR 0.88 (0.87-1.13) 07/14/22 06:38 Sodium 136 mmol/L (137-145) L 07/15/22 05:09 Potassium 3.9 mmol/L (3.6-5.0) 07/15/22 05:09 Chloride 92.3 mmol/L (98-107) L 07/15/22 05:09 Carbon Dioxide 28 mmol/L (22-30) 07/15/22 05:09 Anion Gap 20 mmol/L 07/15/22 05:09 BUN 57 mg/dL (7-17) H 07/15/22 05:09 Creatinine 9.9 mg/dL (0.6-1.2) H 07/15/22 05:09 Estimated GFR 5 ml/min 07/15/22 05:09 BUN/Creatinine Ratio 6 % 07/15/22 05:09 Glucose 107 mg/dL (65-100) H 07/15/22 05:09 POC Glucose 110 mg/dL (70-105) H 07/15/22 08:02 Calcium 9.6 mg/dL (8.4-10.2) 07/15/22 05:09 Total Bilirubin 0.40 mg/dL (0.1-1.2) 07/15/22 05:09 AST 22 units/L (5-40) 07/15/22 05:09 ALT 35 units/L (7-56) 07/15/22 05:09 Alkaline Phosphatase 69 units/L (35-129) 07/15/22 05:09 Troponin T 0.103 ng/mL (0.00-0.029) H* 07/14/22 06:38 NT-Pro-B Natriuret Pep > 67668 pg/mL (0-900) H 07/14/22 06:38 Total Protein 6.3 g/dL (6.3-8.2) 07/15/22 05:09 Albumin 4.1 g/dL (3.9-5) 07/15/22 05:09 Albumin/Globulin Ratio 1.9 % 07/15/22 05:09 Triglycerides 120 mg/dL (2-149) 07/14/22 06:38 Cholesterol 218 mg/dL (50-199) H 07/14/22 06:38 LDL Cholesterol Direct 122 mg/dL (50-130) 07/14/22 06:38 HDL Cholesterol 82 mg/dL (40-59) H 07/14/22 06:38 Cholesterol/HDL Ratio 2.65 % 07/14/22 06:38 Hepatitis A IgM Ab Non-reactive (NonReactive) 07/14/22 12:04 Hep Bs Antigen Non-reactive (Negative) 07/14/22 12:04 Hep B Core IgM Ab Non-reactive (NonReactive) 07/14/22 12:04 Hepatitis C Antibody Non-reactive (NonReactive) 07/14/22 12:04 Active Medications - Current Medications Current Medications: Generic Name Dose Route Start Last Admin Trade Name Freq PRN Reason Stop Dose Admin Acetaminophen 650 mg 07/14/22 08:32 Acetaminophen 325 Mg Tab PO Q4H PRN Pain MILD(1-3)/Fever >100.5/NARANJO Albuterol 2.5 mg 07/14/22 08:32 Albuterol 2.5 Mg/3 Ml Nebu IH Q4H PRN Shortness Of Breath Albuterol/Ipratropium 1 ampul 07/14/22 14:00 07/15/22 09:37 Ipratropium/Albuterol Sulfate 3 Ml Ampul.Neb IH 1 ampul Q6HRT BRODERICK Administration Amlodipine Besylate 10 mg 07/14/22 10:00 07/14/22 10:16 Amlodipine 10 Mg Tab PO 10 mg QDAY BRODERICK Administration Aspirin 81 mg 07/14/22 10:00 07/14/22 10:16 Aspirin 81 Mg Tab Chew PO 81 mg QDAY BRODERICK Administration Atorvastatin Calcium 40 mg 07/14/22 22:00 07/14/22 21:07 Atorvastatin 40 Mg Tab PO 40 mg QHS BRODERICK Administration Clonidine HCl 0.1 mg 07/14/22 08:38 Clonidine 0.1 Mg Tab PO BID PRN Blood pressure > 180/100 Dextrose 50 ml 07/14/22 08:42 Dextrose 50% In Water (25gm) 50 Ml Syringe IV Q30MIN PRN Hypoglycemia Protocol Famotidine 10 mg 07/14/22 10:00 07/14/22 21:07 Famotidine 10 Mg Tab PO 10 mg BID BRODERICK Administration Sodium Chloride 100 mls @ 999 mls/hr 07/15/22 08:00 Nacl 0.9% IV LUZMARIA PRN Hypotension Insulin Human Lispro 0 unit 07/14/22 11:30 07/14/22 22:45 Insulin Lispro 100 Unit/Ml SUB-Q Not Given ACHS BRODERICK Protocol Lisinopril 40 mg 07/14/22 10:00 07/14/22 17:15 Lisinopril 40 Mg Tab PO Not Given QDAY BRODERICK Meclizine HCl 25 mg 07/14/22 08:38 Meclizine 25 Mg Tab PO TID PRN Vertigo Methocarbamol 500 mg 07/14/22 08:38 Methocarbamol 500 Mg Tab PO Q8H PRN Muscle Spasm Metoclopramide HCl 2.5 mg 07/14/22 09:14 Metoclopramide 10 Mg/2 Ml Inj IV Q6H PRN Nausea And Vomiting Morphine Sulfate 2 mg 07/14/22 08:14 Morphine 2 Mg/1 Ml Inj IV Q4H PRN Pain, Moderate (4-6) Naloxone HCl 0.1 mg 07/14/22 08:32 Naloxone 0.4 Mg/1 Ml Inj IV Q2MIN PRN Res Rate </= 8 or 02 SAT < 92% Ondansetron HCl 4 mg 07/14/22 08:32 07/14/22 11:45 Ondansetron 4 Mg/2 Ml Inj IV 4 mg Q4H PRN Administration Nausea And Vomiting Sodium Chloride 10 ml 07/14/22 10:00 07/14/22 21:07 Sodium Chloride 0.9% 10 Ml Flush Syringe IV 10 ml BID BRODERICK Administration Sodium Chloride 10 ml 07/14/22 08:13 Sodium Chloride 0.9% 10 Ml Flush Syringe IV PRN PRN LINE FLUSH
--- NOTE | 2022-07-15 10:45 | Discharge Summary ---
Providers - Providers Date of Admission: 07/14/22 12:06 Date of discharge: 07/15/22 Attending physician: QUINTIN AREVALO 07/14/22 08:11 Consult to Physician [CONS] Urgent Comment: Consulting Provider: RASHAD BRYANT Physician Instructions: Reason For Exam: esrd pulm edema 07/14/22 08:35 Consult to Dietitian/Nutrition [CONS] Routine Physician Instructions: Reason For Exam: Reason for Consult: Poor oral intake Primary care physician: ERVIN SMITH Hospitalization Reason for admission: resp failure Condition: Stable Hospital course: 71-year-old female with a past medical history of hypertension, diabetes, end- stage renal disease on dialysis Friday, Friday, and Friday presented to the hospital complaining of shortness of breath. Patient found to be hypoxic with a room air saturation of 82% upon EMS arrival. Patient was admitted here in May with similar symptoms secondary to pulmonary edema. At that May admission it was due to not compliance with her dialysis but this time patient reports compliance with her dialysis. Patient is not vaccinated for COVID but tested negative during May admission. Radiology Supervisor Dr. Bryant She was also noted to have systolic blood pressure in the 200s. Chest x-ray revealed questionable right basilar pneumonia. Patient was admitted with diag nosis below: Acute Hypoxic Respiratory failure ESRD with Volume overload Hypertensive emergency Pulmonary Edema with possible Flash episode SIRS. Right Basilar Pneumonia Type 2 NSTEMI Diabetes Mellitus, last A1C 7.8 Patient was initially felt to have a right basilar pneumonia that may have contributed to acute hypoxic respiratory failure. However, patient had no leukocytosis or fever and findings on chest x-ray were most likely related to pulmonary edema. Etiology of respiratory failure was likely secondary to ESRD with volume overload and flash pulmonary edema related to hypertensive crisis. Patient had quick resolution of hypoxia with hemodialysis and correction of BP. The patient will receive hemodialysis today and discharge after hemodialysis. Dedicated discharge time 32 minutes. Disposition: HOME / SELF CARE / HOMELESS Final Discharge Diagnosis (Prints w/discharge instructions): Acute Hypoxic Respiratory failure. ESRD with Volume overload. Hypertensive emergency. Pulmonary Edema with possible Flash episode. SIRS. Type 2 NSTEMI. Diabetes Mellitus, last A1C 7.8 Core Measure Documentation - Palliative Care Palliative Care/ Comfort Measures: Not Applicable - Core Measures Any of the following diagnoses?: none Exam - Constitutional Vitals: Temp Pulse Resp BP Pulse Ox 98.1 F 60 18 137/65 97 07/15/22 08:04 07/15/22 09:00 07/15/22 09:00 07/15/22 08:04 07/15/22 09:37 General appearance: Present: no acute distress, well-nourished - EENT Eyes: Present: PERRL ENT: hearing intact, clear oral mucosa - Neck Neck: Present: supple, normal ROM - Respiratory Respiratory effort: normal Respiratory: bilateral: CTA - Cardiovascular Heart Sounds: Present: S1 & S2. Absent: rub, click - Extremities Extremities: pulses symmetrical, No edema Peripheral Pulses: within normal limits - Abdominal General gastrointestinal: Present: soft, non-tender, non-distended, normal bowel sounds Female genitourinary: Present: normal - Integumentary Integumentary: Present: clear, warm, dry - Musculoskeletal Musculoskeletal: gait normal, strength equal bilaterally - Psychiatric Psychiatric: appropriate mood/affect, intact judgment & insight - Neurologic Neurologic: CNII-XII intact, moves all extremities Plan Activity: advance as tolerated Weight Bearing Status: Weight Bear as Tolerated Diet: renal Follow up with: ERVIN SMITH MD [Primary Care Provider] - 7 Days RASHAD BRYANT MD [Staff Physician] - 7 Days Prescriptions: amLODIPine 10 mg PO QDAY #30 tablet Aspirin [Aspirin BABY CHEW TAB] 81 mg PO QDAY #30 tab.chew cloNIDine [Catapres] 0.1 mg PO BID PRN #20 tablet PRN Reason: Blood pressure > 180/100 AtorvaSTATin [Lipitor] 40 mg PO QHS #30 tablet methOCARBAMOL [Robaxin TAB] 500 mg PO Q8HR PRN #20 tablet PRN Reason: Muscle Spasm lisinopriL [Zestril TAB] 40 mg PO QDAY #30 tablet
[2022-07-15 15:16] VITALS: BP 112/60
[2022-07-15] MEDS: LISINOPRIL 40 MG TAB PO SCH (15:26)
[2022-07-15] MEDS: ASPIRIN 81 MG TAB CHEW PO SCH (15:27)
[2022-07-15] MEDS: FAMOTIDINE 10 MG TAB PO SCH (15:27)
[2022-07-15] MEDS: amLODIPine 10 MG TAB PO SCH (15:28)
[2022-07-15] MEDS ORDERED: IPRATROPIUM/ALBUTEROL SULFATE 3 ML AMPUL.NEB IH SCH (20:00)
--- NOTE | 2022-07-16 13:51 | Electrocardiograph Report ---
[facility] Test Date: 2022-07-14 Test Time: 06:09:41 Pat Name: ROULA العلي Department: Room: A466 Gender: F Educational Administrator: STEWART : 1950 Requested By: ALFREDA ORTEGA Order Number: [id number] Reading MD: Greta Dickey Measurements Intervals [place] Rate: 91 P: 15 MA: 223 QRS: -8 QRSD: 89 T: 10 QT: 360 QTc: 443 Interpretive Statements Sinus rhythm Prolonged MA interval Probable left atrial enlargement LVH with secondary repolarization abnormality Anterior infarct, old ST depression, consider lateral ischemia Compared to ECG 05/27/2022 08:18:16 No significant change Electronically Signed On 07-16-2022 13:51:19 EDT by Greta Dickey
== END 2022-07-15 17:00 | disposition home or self-care (01) ==
LOC: ED 05:58 → INTOOBSV 12:06 → 4A 12:06
PROVIDERS: ADMIT Internal Medicine; ATTEND Hospitalist
DX: J96.01 Acute respiratory failure with hypoxia (principal); E87.70 Fluid overload, unspecified; I16.1 Hypertensive emergency; I12.0 Hypertensive chronic kidney disease with stage 5 chronic kidney disease or end stage renal disease; N18.6 End stage renal disease; E11.22 Type 2 diabetes mellitus with diabetic chronic kidney disease; R65.10 Systemic inflammatory response syndrome (SIRS) of non-infectious origin without acute organ dysfunction; J81.1 Chronic pulmonary edema; J18.9 Pneumonia, unspecified organism; Z86.73 Personal history of transient ischemic attack (TIA), and cerebral infarction without residual deficits; Z79.899 Other long term (current) drug therapy; Z98.890 Other specified postprocedural states; Z79.82 Long term (current) use of aspirin
CPT/HCPCS: 36415; 71045; 80053; 80061; 80074; 82962; 83880; 84484; 85025; 85610; 93005; 94640; 94644; 96374; 96375; 99291; G0257; G0378; J1940; J2405